=== PATIENT | male | born 1965 | race Caucasian/White ===

== ENCOUNTER 2016-09-01 15:28 | Emergency (ER) | payer MEDICARE, MEDICAID ==
[2016-09-01] MEDS ORDERED: Sodium Chloride 0.9% 10 ML Syringe FLUSH PRN ×2 (15:58)
[2016-09-01] MEDS ORDERED: Sodium Chloride 0.9% 1,000 ML IV ONE ×2 (16:01→18:19)
--- NOTE | 2016-09-01 16:18 | EDM.PDOC ---
ED HPI GENERAL MEDICAL PROBLEM - General Chief Complaint: General Stated Complaint: PAIN Time Seen by Provider: 09/01/16 15:41 Source of Information: Reports: Patient History Limitations: Reports: Other (Mentally challenged) - History of Present Illness INITIAL COMMENTS - FREE TEXT/NARRATIVE: Presents to the ER with vague symptoms. The patient is mentally challenged. He states that he has been "feeling draggy" he stated that he tried to eat but he was too weak. He also complains of some pains in his both forearms and pushing his shopping cart to the right. He reports no trouble driving. He states that he sets up his own meds but later he told me that the person that sets up his meds had not been around for a while. He also stated that he had a colonoscopy and saw Dr. Godinez on Wednesday but on further questioning it is doubtful that he had a colonoscopy. He said the lab work they did was all good at that time. He does have a history of diabetes and he states that he has been taking his medications Left Upper Abdominal Pain Score (Numeric/FACES): 8 - Related Data Allergies Allergy/AdvReac Type Severity Reaction Status Date / Time No Known Allergies Allergy Verified 09/01/16 15:43 Home Meds: Home Meds Divalproex Sodium [Depakote] 1,000 mg PO DAILY 05/11/15 [History] Glucosamine [Glucosamine Sulfate] 500 mg PO BID 05/11/15 [History] Insulin Glarg,Human.Rec.Analog [LantUS] 24 unit SUBCUT DAILY 05/18/15 [History] Insulin Lispro [Humalog] 40 unit SQ DAILY 05/18/15 [History] Lisinopril [Lisinopril] 1 tab PO DAILY 03/02/16 [History] metFORMIN HCl [Metformin HCl] 750 mg PO TID 03/02/16 [History] Past Medical History - Past Health History Medical/Surgical History: Denies Medical/Surgical History HEENT History: Reports: Impaired Vision Cardiovascular History: Reports: High Cholesterol, Hypertension Respiratory History: Reports: None Gastrointestinal History: Reports: None Genitourinary History: Reports: None Musculoskeletal History: Reports: Arthritis Neurological History: Reports: Seizure Psychiatric History: Reports: None Endocrine/Metabolic History: Reports: Diabetes, Type II Hematologic History: Reports: None Immunologic History: Reports: None Oncologic (Cancer) History: Reports: None Dermatologic History: Reports: None - Infectious Disease History Infectious Disease History: Reports: None - Past Surgical History Head Surgeries/Procedures: Reports: None HEENT Surgical History: Reports: Naso-Sinus Surgery, Retinal, Visual Social & Family History - Family History Family Medical History: Noncontributory - Tobacco Use Smoking Status *Q: Never Smoker Second Hand Smoke Exposure: No - Caffeine Use Caffeine Use: Reports: Soda - Alcohol Use Days Per Week of Alcohol Use: 0 - Recreational Drug Use Recreational Drug Use: No ED ROS GENERAL - Review of Systems Review Of Systems: ROS reveals no pertinent complaints other than HPI. Constitutional: Denies: Fever ED EXAM, GENERAL - Physical Exam Exam: See Below Exam Limited By: No Limitations General Appearance: Alert, No Apparent Distress Ears: Normal External Exam Nose: Normal Inspection Throat/Mouth: Normal Inspection Head: Atraumatic, Normocephalic Neck: Normal Inspection Respiratory/Chest: No Respiratory Distress, Lungs Clear, Normal Breath Sounds, No Accessory Muscle Use Cardiovascular: Normal Peripheral Pulses, Regular Rate, Rhythm, No Edema, No Murmur GI/Abdominal: Normal Bowel Sounds, Non-Tender, Other Back Exam: Normal Inspection, Full Range of Motion Extremities: Normal Inspection Neurological: Alert, Oriented Psychiatric: Normal Affect, Normal Mood Skin Exam: Warm, Dry, Intact, Normal Color, No Rash Lymphatic: No Adenopathy Course - Vital Signs Last Recorded V/S: Last Vital Signs Temp 36.7 C 09/01/16 15:39 Pulse 134 H 09/01/16 15:39 Resp 18 09/01/16 15:39 BP 152/86 H 09/01/16 15:39 Pulse Ox 94 L 09/01/16 15:39 - Orders/Labs/Meds Orders: Active Orders 24 hr Category Date Time Status EKG Documentation Completion [RC] STAT Care 09/01/16 15:58 Active Abdomen 2V AP Flat Upright [CR] Stat Exams 09/01/16 16:00 Ordered CBC WITH AUTO DIFF [HEME] Stat Lab 09/01/16 15:58 Ordered COMPREHENSIVE METABOLIC PN,CMP [CHEM] Stat Lab 09/01/16 15:58 Ordered TROPONIN I [CHEM] Stat Lab 09/01/16 15:58 Ordered Sodium Chloride 0.9% [Normal Saline] 1,000 ml Med 09/01/16 16:01 Active IV STAT Sodium Chloride 0.9% [Saline Flush] Med 09/01/16 15:58 Active 10 ml FLUSH ASDIRECTED PRN Sodium Chloride 0.9% [Saline Flush] Med 09/01/16 15:58 Active 10 ml FLUSH ASDIRECTED PRN Saline Lock Insert [OM.PC] Stat Oth 09/01/16 15:58 Ordered Medication Orders Sodium Chloride (Normal Saline) 1,000 mls @ 999 mls/hr IV STAT ONE Stop: 09/01/16 17:01 Sodium Chloride (Saline Flush) 10 ml FLUSH ASDIRECTED PRN PRN Reason: Keep Vein Open Sodium Chloride (Saline Flush) 10 ml FLUSH ASDIRECTED PRN PRN Reason: Keep Vein Open Meds: Medications Generic Name Dose Route Start Last Admin Trade Name Freq PRN Reason Stop Dose Admin Sodium Chloride 1,000 mls @ 999 mls/hr 09/01/16 16:01 Normal Saline IV 09/01/16 17:01 STAT ONE Sodium Chloride 10 ml 09/01/16 15:58 Saline Flush FLUSH ASDIRECTED PRN Keep Vein Open Sodium Chloride 10 ml 09/01/16 15:58 Saline Flush FLUSH ASDIRECTED PRN Keep Vein Open - Re-Assessments/Exams Free Text/Narrative Re-Assessment/Exam: 09/01/16 20:26 Patient was offered to stay in the hospital a number of times but he refused and states that he has things he has to do at home. I also talked to his mother about our findings and his complaints. She states that she cannot help him out as she has no vehicle but that he does go out to the [facility] clinic often. In fact he was out there today and will go back tomorrow to get his prescriptions filled. The patient also would not allow blood cultures or a chest x-ray. I was able to talk him into allowing his blood gases to be drawn Departure - Departure Time of Disposition: 20:17 Disposition: Home, Self-Care 01 Condition: good Clinical Impression: Diabetes mellitus Qualifiers: Diabetes mellitus type: type 2 Diabetes mellitus complication status: with hyperglycemia Leukocytosis Qualifiers: Leukocytosis type: unspecified Qualified Code(s): D72.829 - Elevated white blood cell count, unspecified Constipation Qualifiers: Constipation type: unspecified constipation type Qualified Code(s): K59.00 - Constipation, unspecified - Discharge Information Forms: ED Department Discharge Additional Instructions: 1. Take your antibiotic once a day for the next four days 2. Drink lots of fluids such as water and sports drinks like Gatorade 3. You must go to [facility] ([facility]) clinic in the morning and get your prescriptions filled. Have them set up your medications for you as well and check your blood sugar. See your primary provider Dr. Godinez as soon as possible. 4. Check your blood sugars and take your insulin as you have been trained. Eat your regular meals and snacks. 5. Return right away if you're feeling weak, shaky or feverish. 6. When you are near a toilet, drink one bottle of Mag Citrate for your constipation. - My Orders Last 24 Hours: My Active Orders 09/01/16 15:58 EKG Documentation Completion [RC] STAT CBC WITH AUTO DIFF [HEME] Stat COMPREHENSIVE METABOLIC PN,CMP [CHEM] Stat TROPONIN I [CHEM] Stat Sodium Chloride 0.9% [Saline Flush] 10 ml FLUSH ASDIRECTED PRN Sodium Chloride 0.9% [Saline Flush] 10 ml FLUSH ASDIRECTED PRN Saline Lock Insert [OM.PC] Stat 09/01/16 16:00 Abdomen 2V AP Flat Upright [CR] Stat 09/01/16 16:01 Sodium Chloride 0.9% [Normal Saline] 1,000 ml IV STAT - Assessment/Plan Last 24 Hours: My Active Orders 09/01/16 15:58 EKG Documentation Completion [RC] STAT CBC WITH AUTO DIFF [HEME] Stat COMPREHENSIVE METABOLIC PN,CMP [CHEM] Stat TROPONIN I [CHEM] Stat Sodium Chloride 0.9% [Saline Flush] 10 ml FLUSH ASDIRECTED PRN Sodium Chloride 0.9% [Saline Flush] 10 ml FLUSH ASDIRECTED PRN Saline Lock Insert [OM.PC] Stat 09/01/16 16:00 Abdomen 2V AP Flat Upright [CR] Stat 09/01/16 16:01 Sodium Chloride 0.9% [Normal Saline] 1,000 ml IV STAT
[2016-09-01] MEDS ORDERED: Insulin Regular, Human 100 Units/ML 10 ML Vial SUBCUT STA ×2 (19:03→20:27)
[2016-09-01] MEDS ORDERED: Piperacillin/Tazobactam 4.5 GM in Sodium Chloride 0.9% 100 ML IV ONE (19:21)
[2016-09-01] MEDS ORDERED: Levofloxacin 500 MG Tab PO ONE (19:21)
[2016-09-01] MEDS ORDERED: Insulin Regular, Human 100 Units/ML 10 ML Vial ONE (20:24)
[2016-09-01 21:12] VITALS: BP 131/92
[2016-09-02] MEDS ORDERED: Insulin Regular, Human 100 Units/ML 10 ML Vial SUBCUT SCH (07:30)
--- NOTE | 2016-09-02 10:14 | CR ---
EXAM DATE: 09/01/16 PATIENT'S AGE: 51 Patient: VALERIE OROPEZA Facility: [place], [place] Site . Site : 1965 Study: XRay Abdomen [id number] 5:27:12 PM Ordering Physician: Doctor Fields Final Report: Indication: Lower abdominal pain at the insulin injection site, left bowel movement 1 week ago Technique: Abdomen supine and upright views. Comparison: May 18, 2015 Findings: Bowel: Bowel pattern is normal. Large amount of stool within the colon. Soft tissues: No sign of free air. No sign of soft tissue mass. No suspicious calcifications. Bones: Unremarkable for age. Impression: Constipation. Dictated by Siri Jordan MD @ Sep 01 2016 5:43PM (Electronic Signature) Report Signed by Proxy. HAYLEE
[2016-09-02] MEDS ORDERED: Insulin Regular, Human 100 Units/ML 10 ML Vial SUBCUT ONE ×2 (18:21→20:21)
== END 2016-09-01 21:09 | disposition home or self-care (01) ==
LOC: MW.ED 15:28
DX: E11.65 Type 2 diabetes mellitus with hyperglycemia (principal); D72.829 Elevated white blood cell count, unspecified; K59.00 Constipation, unspecified; E78.00 Pure hypercholesterolemia, unspecified; I10 Essential (primary) hypertension; M19.90 Unspecified osteoarthritis, unspecified site; Z79.899 Other long term (current) drug therapy; Z79.4 Long term (current) use of insulin
CPT/HCPCS: 36600; 74020; 80053; 81001; 82803; 82962; 83605; 84484; 85025; 93005; 96361; 96365; 96372; 99285; A9270; J2543; J7030; J7040; 99283; J1815-GY

== ENCOUNTER 2017-04-04 12:18 | Emergency (ER) | payer MEDICARE, MEDICAID ==
--- NOTE | 2017-04-04 12:35 | EDM.PDOC ---
ED HPI GENERAL MEDICAL PROBLEM - General Chief Complaint: Respiratory Problem Stated Complaint: HEADACHE AND COUGHING Time Seen by Provider: 04/04/17 12:35 Source of Information: Reports: Patient - History of Present Illness INITIAL COMMENTS - FREE TEXT/NARRATIVE: HISTORY AND PHYSICAL: History of present illness: [51-year-old diabetic presents with sinus pain and pressure headache increasing over the last week as well as copious nasal discharge has been using over-the- counter symptomatic therapies without any benefit No fever nausea vomiting chills sweats he complains of persistent cough that is nonproductive no chest pain shortness breath dizziness or palpitation no bowel or urine symptoms ] Review of systems: As per history of present illness and below otherwise all systems reviewed and negative. Past medical history: As per history of present illness and as reviewed below otherwise noncontributory. Surgical history: As per history of present illness and as reviewed below otherwise noncontributory. Social history: No reported history of drug or alcohol abuse. Family history: As per history of present illness and as reviewed below otherwise noncontributory. Physical exam: HEENT: Atraumatic, normocephalic, pupils reactive, negative for conjunctival pallor or scleral icterus, mucous membranes moist, throat clear, neck supple, nontender, trachea midline. Sinus tenderness left greater than right supraorbital and maxillary sinus boggy nasal mucosa with copious nasal discharge on the left Lungs: Clear to auscultation, breath sounds equal bilaterally, chest nontender. Heart: S1S2, regular, negative for clicks, rubs, or JVD. Abdomen: Soft, nondistended, nontender. Negative for masses or hepatosplenomegaly. Negative for costovertebral tenderness. Pelvis: Stable nontender. Genitourinary: Deferred. Rectal: Deferred. Extremities: Atraumatic, negative for cords or calf pain. Neurovascular unremarkable. Neuro: Awake, alert, oriented. Cranial nerves II through XII unremarkable. Cerebellum unremarkable. Motor and sensory unremarkable throughout. Exam nonfocal. Diagnostics: []Chest 2 views Therapeutics: []Patient offered Rocephin declines Levaquin 500 mg by mouth daily #10 no refill Flonase [id number] symptomatic therapies discussed Impression: []Acute sinusitis Chronic history of baseline Definitive disposition and diagnosis as appropriate pending reevaluation and review of above. Headache Pain Score (Numeric/FACES): 5 - Related Data Allergies Allergy/AdvReac Type Severity Reaction Status Date / Time No Known Allergies Allergy Verified 09/01/16 15:43 Home Meds: Home Meds Divalproex Sodium [Depakote] 1,000 mg PO DAILY 05/11/15 [History] Glucosamine [Glucosamine Sulfate] 500 mg PO BID 05/11/15 [History] Insulin Glarg,Human.Rec.Analog [LantUS] 24 unit SUBCUT DAILY 05/18/15 [History] Insulin Lispro [Humalog] 40 unit SQ DAILY 05/18/15 [History] Lisinopril [Lisinopril] 1 tab PO DAILY 03/02/16 [History] metFORMIN HCl [Metformin HCl] 750 mg PO TID 03/02/16 [History] Past Medical History - Past Health History Medical/Surgical History: Denies Medical/Surgical History HEENT History: Reports: Impaired Vision Cardiovascular History: Reports: High Cholesterol, Hypertension Respiratory History: Reports: None Gastrointestinal History: Reports: None Genitourinary History: Reports: None Musculoskeletal History: Reports: Arthritis Neurological History: Reports: Seizure Psychiatric History: Reports: None Endocrine/Metabolic History: Reports: Diabetes, Type II Hematologic History: Reports: None Immunologic History: Reports: None Oncologic (Cancer) History: Reports: None Dermatologic History: Reports: None - Infectious Disease History Infectious Disease History: Reports: None - Past Surgical History Head Surgeries/Procedures: Reports: None HEENT Surgical History: Reports: Naso-Sinus Surgery, Retinal, Visual Social & Family History - Family History Family Medical History: Noncontributory - Tobacco Use Smoking Status *Q: Never Smoker Second Hand Smoke Exposure: No - Caffeine Use Caffeine Use: Reports: Soda - Alcohol Use Days Per Week of Alcohol Use: 0 - Recreational Drug Use Recreational Drug Use: No ED ROS GENERAL - Review of Systems Review Of Systems: ROS reveals no pertinent complaints other than HPI. ED EXAM, GENERAL - Physical Exam Exam: See Below Course - Vital Signs Last Recorded V/S: Last Vital Signs Temp 97.2 F 04/04/17 12:35 Pulse 94 04/04/17 12:35 Resp 18 04/04/17 12:35 BP 151/86 H 04/04/17 12:35 Pulse Ox 96 04/04/17 12:35 - Orders/Labs/Meds Orders: Active Orders 24 hr Category Date Time Status Chest 2V [CR] Stat Exams 04/04/17 12:38 Taken Departure - Departure Time of Disposition: 13:24 Disposition: Home, Self-Care 01 Condition: Good Clinical Impression: Acute sinusitis - Discharge Information Referrals: Ioana Godinez MD [Primary Care Provider] - Forms: ED Department Discharge Additional Instructions: Medication as prescribed [id number] symptomatic therapies may benefit Return if symptoms persist or worsen Follow-up with primary care in 2 weeks sooner as needed The following information is given to patients seen in the emergency department who are being discharged to home. This information is to outline your options for follow-up care. We provide all patients seen in our emergency department with a follow-up referral. The need for follow-up, as well as the timing and circumstances, are variable depending upon the specifics of your emergency department visit. If you don't have a primary care physician on staff, we will provide you with a referral. We always advise you to contact your personal physician following an emergency department visit to inform them of the circumstance of the visit and for follow-up with them and/or the need for any referrals to a consulting specialist. The emergency department will also refer you to a specialist when appropriate. This referral assures that you have the opportunity for follow-up care with a specialist. All of these measure are taken in an effort to provide you with optimal care, which includes your follow-up. Under all circumstances we always encourage you to contact your private physician who remains a resource for coordinating your care. When calling for follow-up care, please make the office aware that this follow-up is from your recent emergency room visit. If for any reason you are refused follow-up, please contact the [facility] emergency department at and asked to speak to the emergency department charge nurse. - My Orders Last 24 Hours: My Active Orders 04/04/17 12:38 Chest 2V [CR] Stat - Assessment/Plan Last 24 Hours: My Active Orders 04/04/17 12:38 Chest 2V [CR] Stat
[2017-04-04 12:39] VITALS: BP 151/86
--- NOTE | 2017-04-05 14:58 | CR ---
EXAM DATE: 04/04/17 PATIENT'S AGE: 51 Patient: VALERIE OROPEZA Facility: [place], [place] Site . Site : 1965 Study: XRay Chest [id number] 1:20:47 PM Ordering Physician: Sherif Laguna Final Report: INDICATION: Cough, Shortness of Breath, Body Aches 2 VIEW CHEST FINDINGS: Heart size and vascular pattern appear normal. Lungs clear. Pleural angles are sharp. No visualized rib fractures or pneumothorax. CONCLUSION: Negative chest. Dictated by: Lenin Plascencia MD @ 04/04/2017 13:42:33 (Electronic Signature) Report Signed by Proxy. [facility]
== END 2017-04-04 13:51 | disposition home or self-care (01) ==
LOC: MW.ED 12:18
DX: J01.90 Acute sinusitis, unspecified (principal); E78.00 Pure hypercholesterolemia, unspecified; I10 Essential (primary) hypertension; E11.9 Type 2 diabetes mellitus without complications; Z79.4 Long term (current) use of insulin; Z79.899 Other long term (current) drug therapy
CPT/HCPCS: 71020; 71020-26; 87804; 99283

== ENCOUNTER 2018-06-23 15:04 | Emergency (ER) | payer MEDICARE, MEDICAID ==
--- NOTE | 2018-06-23 15:35 | EDM.PDOC ---
ED HPI GENERAL MEDICAL PROBLEM - General Chief Complaint: Lower Extremity Injury/Pain Stated Complaint: RIGHT KNEE PAIN Time Seen by Provider: 06/23/18 15:30 Source of Information: Reports: Patient History Limitations: Reports: No Limitations - History of Present Illness INITIAL COMMENTS - FREE TEXT/NARRATIVE: HISTORY AND PHYSICAL: History of present illness: Patient is a 53-year-old male here with complaint of right knee injury. He states he slipped on this ice this morning landing on his right side and right knee. He denies head injury or LOC. He reports pain in his right knee and right low back. He is otherwise in his usual state of health without any other complaints at this time. Review of systems: As per history of present illness and below otherwise all systems reviewed and negative. Past medical history: As per history of present illness and as reviewed below otherwise noncontributory. Surgical history: As per history of present illness and as reviewed below otherwise noncontributory. Social history: No reported history of drug or alcohol abuse. Family history: As per history of present illness and as reviewed below otherwise noncontributory. Physical exam: General: Patient sitting comfortably in no acute distress and nontoxic appearing HEENT: Atraumatic, normocephalic, pupils reactive, negative for conjunctival pallor or scleral icterus, mucous membranes moist, throat clear, neck supple, nontender, trachea midline. No meningeal signs. Lungs: Clear to auscultation, breath sounds equal bilaterally, chest nontender. Heart: S1S2, regular, negative for clicks, rubs, or overt murmur. Abdomen: Soft, nondistended, nontender. Negative for masses or hepatosplenomegaly. Negative for costovertebral tenderness. No rigidity, rebound , guarding. Pelvis: Stable nontender. Genitourinary: Deferred. Rectal: Deferred. Extremities: Small abrasion to the right knee. No obvious swelling or deformity. Pain to palpation of the patella. He is able to flex and extend without discomfort. Negative varus and valgus stress. Negative anterior and posterior drawer. negative for cords or calf pain. Neurovascular unremarkable. Spine: No vertebral tenderness or step offs. Pain to palpation of right lumbar paraspinals. Neuro: Awake, alert, oriented. Cranial nerves II through XII unremarkable. Cerebellum unremarkable. Motor and sensory unremarkable throughout. Exam nonfocal. Notes: Diagnostics: x-ray right knee Therapeutics: Toradol 10mg PO Prescriptions: Diclofenac 75mg Impression: Right knee pain, right lumbar back pain Plan: 1. Take medication as instructed. 2. Follow up with primary care provider 3. Return to ED as needed as discussed Definitive disposition and diagnosis as appropriate pending reevaluation and review of above. Right Knee Pain Score (Numeric/FACES): 10 - Related Data Allergies Allergy/AdvReac Type Severity Reaction Status Date / Time No Known Allergies Allergy Verified 06/23/18 15:18 Home Meds: Home Meds Divalproex Sodium [Depakote] 1,000 mg PO DAILY 05/11/15 [History] Glucosamine [Glucosamine Sulfate] 500 mg PO BID 05/11/15 [History] Insulin Glarg,Human.Rec.Analog [LantUS] 24 unit SUBCUT DAILY 05/18/15 [History] Insulin Lispro [Humalog] 40 unit SQ DAILY 05/18/15 [History] Lisinopril 1 tab PO DAILY 03/02/16 [History] metFORMIN HCl [Metformin HCl] 750 mg PO TID 03/02/16 [History] Gabapentin 250 mg PO BID 03/15/18 [History] Diclofenac Sodium [Voltaren] 75 mg PO BIDMEALS #30 tab.cr 06/23/18 [Rx] Past Medical History - Past Health History Medical/Surgical History: Denies Medical/Surgical History HEENT History: Reports: Impaired Vision Cardiovascular History: Reports: High Cholesterol, Hypertension Respiratory History: Reports: None Gastrointestinal History: Reports: None Genitourinary History: Reports: None Musculoskeletal History: Reports: Arthritis Neurological History: Reports: Seizure Psychiatric History: Reports: None Endocrine/Metabolic History: Reports: Diabetes, Type II Hematologic History: Reports: None Immunologic History: Reports: None Oncologic (Cancer) History: Reports: None Dermatologic History: Reports: None - Infectious Disease History Infectious Disease History: Reports: None - Past Surgical History Head Surgeries/Procedures: Reports: None HEENT Surgical History: Reports: Naso-Sinus Surgery, Retinal, Visual Social & Family History - Family History Family Medical History: Noncontributory - Tobacco Use Smoking Status *Q: Never Smoker - Caffeine Use Caffeine Use: Reports: Soda - Recreational Drug Use Recreational Drug Use: No Review of Systems - Review of Systems Review Of Systems: ROS reveals no pertinent complaints other than HPI. ED EXAM, GENERAL - Physical Exam Exam: See Below (see dictation) Course - Vital Signs Last Recorded V/S: Last Vital Signs Temp 96.0 F 06/23/18 15:14 Pulse 88 06/23/18 15:14 Resp 18 06/23/18 15:14 BP 130/86 06/23/18 15:14 Pulse Ox 96 06/23/18 15:14 - Orders/Labs/Meds Meds: Medications Discontinued Medications Generic Name Dose Route Start Last Admin Trade Name Casey PRN Reason Stop Dose Admin Ketorolac Tromethamine 10 mg 06/23/18 15:54 06/23/18 16:02 Toradol PO 06/23/18 15:55 10 mg ONETIME ONE Administration Departure - Departure Time of Disposition: 16:57 Disposition: Home, Self-Care 01 Condition: Good Clinical Impression: Fall, Right knee pain, Lumbar back pain - Discharge Information Prescriptions: Diclofenac Sodium [Voltaren] 75 mg PO BIDMEALS #30 tab.cr Instructions: Back Pain, Adult, [id number], Knee Pain, Adult, [id number] Referrals: Ioana Godinez MD [Primary Care Provider] - Forms: ED Department Discharge Additional Instructions: The following information is given to patients seen in the emergency department who are being discharged to home. This information is to outline your options for follow-up care. We provide all patients seen in our emergency department with a follow-up referral. The need for follow-up, as well as the timing and circumstances, are variable depending upon the specifics of your emergency department visit. If you don't have a primary care physician on staff, we will provide you with a referral. We always advise you to contact your personal physician following an emergency department visit to inform them of the circumstance of the visit and for follow-up with them and/or the need for any referrals to a consulting specialist. The emergency department will also refer you to a specialist when appropriate. This referral assures that you have the opportunity for follow-up care with a specialist. All of these measure are taken in an effort to provide you with optimal care, which includes your follow-up. Under all circumstances we always encourage you to contact your private physician who remains a resource for coordinating your care. When calling for follow-up care, please make the office aware that this follow-up is from your recent emergency room visit. If for any reason you are refused follow-up, please contact the [facility] Emergency Department at and asked to speak to the emergency department charge nurse. [facility] [address] [place] [id number] [address] [address] 1. Ice, elevate, and take medication as instructed 2. Follow up with primary care provider 3. Return to ED as needed as discussed
[2018-06-23] MEDS ORDERED: Ketorolac 10 MG Tab PO ONE (15:54)
--- NOTE | 2018-06-23 16:58 | CR ---
Indication: Fall. Pain Technique: Four views of the right knee Comparison: 03/20/2010 Findings: Bones: An apparently chronic deformity of the proximal fibula. Otherwise no acute displaced fracture is seen. No dislocation. Joint spaces: Osteoarthritic changes with pronounced narrowing of the lateral compartment and osteophyte formation in the lateral and patellofemoral compartments. A small to moderate suprapatellar effusion. Soft tissues: Unremarkable. Impression: An apparently chronic deformity of the proximal right fibula. If a superimposed acute injury is suspected, correlate with additional imaging evaluation. Degenerative changes, most pronounced in the lateral compartment. A small to moderate joint effusion. Dictated by Bhanu Peña MD @ 06/23/2018 4:56:47 PM Dictated by: Bhanu Peña MD @ 06/23/2018 16:56:50 (Electronically Signed)
[2018-06-23 17:24] VITALS: BP 121/71
== END 2018-06-23 17:14 | disposition home or self-care (01) ==
LOC: MW.ED 15:04
DX: M25.561 Pain in right knee (principal); M54.5 Low back pain; I10 Essential (primary) hypertension; E11.9 Type 2 diabetes mellitus without complications; E78.00 Pure hypercholesterolemia, unspecified; Z79.899 Other long term (current) drug therapy; Z79.4 Long term (current) use of insulin; W19.XXXA Unspecified fall, initial encounter
CPT/HCPCS: 73564; 99283; A9270; 99282

== ENCOUNTER 2018-09-24 09:46 | Emergency (ER) | payer MEDICARE, MEDICAID ==
[2018-09-24] MEDS ORDERED: Sodium Chloride 0.9% 1,000 ML IV ONE (10:07)
--- NOTE | 2018-09-24 10:31 | EDM.PDOC ---
ED HPI GENERAL MEDICAL PROBLEM - General Chief Complaint: General Stated Complaint: LIGHT-HEADED, DIZZY, HEADACHE Time Seen by Provider: 09/24/18 10:06 Source of Information: Reports: Patient History Limitations: Reports: No Limitations - History of Present Illness INITIAL COMMENTS - FREE TEXT/NARRATIVE: HISTORY AND PHYSICAL: History of present illness: Patient is a 53-year-old male with a history of type 2 diabetes primarily on insulin who presents to the ED today for concern of dizziness, lightheaded, headache, and diaphoresis. Patient states he started having symptoms about 2 hours ago when he was doing laundry at home. Patient was at this mother and she had told him to come to the ED. Patient states his worse symptoms is that he feels super sweaty has a headache and is dizzy. Patient states he does not have a history of headaches so a headache today is unusual for him. Patient denies any recent illness and states he has not been sick. Patient states he had checked his sugar this morning and it was around 115 and he had given himself his long-acting insulin dose and had breakfast with a sliding scale. Patient states he also feels nauseous and that he may vomit but he has not. Patient denies any other symptoms or any other health history at this time. Patient denies chest pain, shortness of breath, or cough. Denies neck stiff ness , change in vision, syncope, or near syncope. Denies vomiting, abdominal pain, diarrhea, constipation, or dysuria. Has not noted any blood in urine or stool. Patient has been eating and drinking appropriately. Patient has a history of type 2 diabetes Review of systems: As per history of present illness and below otherwise all systems reviewed and negative. Past medical history: As per history of present illness and as reviewed below otherwise noncontributory. Surgical history: As per history of present illness and as reviewed below otherwise noncontributory. Social history: See social history for further information Family history: As per history of present illness and as reviewed below otherwise noncontributory. Physical exam: General: Patient is alert, oriented, and in no acute distress. Patient sitting comfortably on exam table, patient is sweating on exam, leaning over and holding emesis bag. HEENT: Atraumatic, normocephalic, pupils equal and reactive bilaterally, negative for conjunctival pallor or scleral icterus, mucous membranes dry, TMs normal bilaterally (right TM consistent with surgical history), throat clear, neck supple, nontender, trachea midline. No drooling or trismus noted. No meningeal signs. No hot potato voice noted. Lungs: Clear to auscultation, breath sounds equal bilaterally, chest nontender. Heart: S1S2, regular rate and rhythm without overt murmur Abdomen: Obese, Soft, nondistended, nontender. Negative for masses or hepatosplenomegaly. Negative for costovertebral tenderness. Pelvis: Stable nontender. Genitourinary: Deferred. Rectal: Deferred. Skin: Intact, warm, dry. No lesions or rashes noted. Extremities: Atraumatic, negative for cords or calf pain. Neurovascular unremarkable. Neuro: Awake, alert, oriented. Cranial nerves II through XII unremarkable. Cerebellum unremarkable. Motor and sensory unremarkable throughout. Exam nonfocal. Notes: Patient expresses resolution of symptoms with therapeutics today and has never had chest pain or shortness of breath. Offered admission for observation but patient declines. Discussed the importance for follow-up with primary care provider. Voices understanding and is agreeable to plan of care. Denies any further questions or concerns at this time. Diagnostics: CBC, CMP, influenza, lipase, strep and a troponin, UA, chest x-ray, orthostatic vitals, cardiac exercise physiologist, bedside glucose, EKG, ABG, Blood Ketones (Patient declines Head CT) Therapeutics: Saline Prescription: None Impression: Headache, unspecified Hyperhidrosis, unspecified Dehydration Type 2 DM with hyperglycemia, without complications Plan: 1. Alternate ibuprofen or Tylenol as directed for pain and discomfort. 2. Follow-up with your primary care provider as discussed. Return to the ED as needed and as discussed. Definitive disposition and diagnosis as appropriate pending reevaluation and review of above. - Related Data Allergies Allergy/AdvReac Type Severity Reaction Status Date / Time No Known Allergies Allergy Verified 06/23/18 15:18 Home Meds: Home Meds Divalproex Sodium [Depakote] 1,000 mg PO DAILY 05/11/15 [History] Glucosamine [Glucosamine Sulfate] 500 mg PO BID 05/11/15 [History] Insulin Glarg,Human.Rec.Analog [LantUS] 24 unit SUBCUT DAILY 05/18/15 [History] Insulin Lispro [Humalog] 40 unit SQ DAILY 05/18/15 [History] Lisinopril 1 tab PO DAILY 03/02/16 [History] metFORMIN HCl [Metformin HCl] 750 mg PO TID 03/02/16 [History] Gabapentin 250 mg PO BID 03/15/18 [History] Diclofenac Sodium [Voltaren] 75 mg PO BIDMEALS #30 tab.cr 06/23/18 [Rx] Pregabalin [Lyrica] 25 mg PO BID 09/24/18 [History] Past Medical History - Past Health History Medical/Surgical History: Denies Medical/Surgical History HEENT History: Reports: Impaired Vision Cardiovascular History: Reports: High Cholesterol, Hypertension Respiratory History: Reports: None Gastrointestinal History: Reports: None Genitourinary History: Reports: None Musculoskeletal History: Reports: Arthritis Neurological History: Reports: Seizure Psychiatric History: Reports: None Endocrine/Metabolic History: Reports: Diabetes, Type II Hematologic History: Reports: None Immunologic History: Reports: None Oncologic (Cancer) History: Reports: None Dermatologic History: Reports: None - Infectious Disease History Infectious Disease History: Reports: None - Past Surgical History Head Surgeries/Procedures: Reports: None HEENT Surgical History: Reports: Naso-Sinus Surgery, Retinal, Visual Social & Family History - Family History Family Medical History: Noncontributory - Tobacco Use Smoking Status *Q: Never Smoker - Caffeine Use Caffeine Use: Reports: Coffee, Soda - Recreational Drug Use Recreational Drug Use: No ED ROS GENERAL - Review of Systems Review Of Systems: ROS reveals no pertinent complaints other than HPI. ED EXAM, GENERAL - Physical Exam Exam: See Below (See dictation) Course - Vital Signs Last Recorded V/S: Last Vital Signs Temp 34.8 C L 09/24/18 10:02 Pulse 90 09/24/18 10:02 Resp 18 09/24/18 10:02 BP 147/90 H 09/24/18 10:02 Pulse Ox 97 09/24/18 10:02 - Orders/Labs/Meds Orders: Active Orders 24 hr Category Date Time Status Cardiac Monitoring [RC] . DIRECTED Care 09/24/18 10:07 Active EKG Documentation Completion [RC] STAT Care 09/24/18 10:07 Active Glucose [Blood Glucose Check, Bedside] [RC] ONETIME Care 09/24/18 10:09 Active Orthostatic Vital Signs [RC] ASDIRECTED Care 09/24/18 10:08 Active CULTURE STREP A CONFIRMATION [RM] Stat Lab 09/24/18 11:40 Results STREP SCRN A RAPID W CULT CONF [RM] Stat Lab 09/24/18 11:40 Results UA RFX MELVA AND CULT IF INDIC [URIN] Stat Lab 09/24/18 10:07 Ordered Labs: Laboratory Tests 09/24/18 09/24/18 09/24/18 Range/Units 10:30 10:30 10:30 WBC 5.58 (4.0-11.0) K/uL RBC 5.50 (4.50-5.90) M/uL Hgb 16.8 (13.0-17.0) g/dL Hct 50.5 H (38.0-50.0) % MCV 91.8 (80.0-98.0) fL MCH 30.5 (27.0-32.0) pg MCHC 33.3 (31.0-37.0) g/dL RDW Std Deviation 46.7 (28.0-62.0) fl RDW Coeff of Lety 14 (11.0-15.0) % Plt Count 168 (150-400) K/uL MPV 10.90 (7.40-12.00) fL Neut % (Auto) 64.1 (48.0-80.0) % Lymph % (Auto) 22.2 (16.0-40.0) % Rice % (Auto) 10.0 (0.0-15.0) % Eos % (Auto) 3.2 (0.0-7.0) % Baso % (Auto) 0.5 (0.0-1.5) % Neut # (Auto) 3.6 (1.4-5.7) K/uL Lymph # (Auto) 1.2 (0.6-2.4) K/uL Rice # (Auto) 0.6 (0.0-0.8) K/uL Eos # (Auto) 0.2 (0.0-0.7) K/uL Baso # (Auto) 0.0 (0.0-0.1) K/uL Nucleated RBC % 0.0 /100WBC Nucleated RBCs # 0 K/uL ABG pH (7.35-7.45) ABG pCO2 (35-45) mmHG ABG pO2 (75-100) mmHG ABG HCO3 (22-26) mEq/L ABG Total CO2 ABG Base Excess (-2.0-2.0) Sodium 139 (136-148) mmol/L Potassium 4.8 (3.5-5.1) mmol/L Chloride 103 (98-107) mmol/L Carbon Dioxide 28.6 (21.0-32.0) mmol/L BUN 22 H (7.0-18.0) mg/dL Creatinine 1.4 H (0.8-1.3) mg/dL Est Cr Clr Drug Dosing 65.74 mL/min Estimated GFR (MDRD) 53.2 ml/min Glucose 227 H (74-106) mg/dL POC Glucose (60-110) mg/dL Calcium 9.5 (8.5-10.1) mg/dL Total Bilirubin 0.4 (0.2-1.0) mg/dL AST 31 (15-37) IU/L ALT 49 (14-63) IU/L Alkaline Phosphatase 105 (46-116) U/L Troponin I < 0.050 (0.000-0.056) ng/mL Total Protein 8.5 H (6.4-8.2) g/dL Albumin 3.9 (3.4-5.0) g/dL Globulin 4.6 H (2.6-4.0) g/dL Albumin/Globulin Ratio 0.9 (0.9-1.6) Lipase 140 (73-393) U/L Ketones NEGATIVE (NEG) 09/24/18 09/24/18 Range/Units 10:31 11:30 WBC (4.0-11.0) K/uL RBC (4.50-5.90) M/uL Hgb (13.0-17.0) g/dL Hct (38.0-50.0) % MCV (80.0-98.0) fL MCH (27.0-32.0) pg MCHC (31.0-37.0) g/dL RDW Std Deviation (28.0-62.0) fl RDW Coeff of Lety (11.0-15.0) % Plt Count (150-400) K/uL MPV (7.40-12.00) fL Neut % (Auto) (48.0-80.0) % Lymph % (Auto) (16.0-40.0) % Rice % (Auto) (0.0-15.0) % Eos % (Auto) (0.0-7.0) % Baso % (Auto) (0.0-1.5) % Neut # (Auto) (1.4-5.7) K/uL Lymph # (Auto) (0.6-2.4) K/uL Rice # (Auto) (0.0-0.8) K/uL Eos # (Auto) (0.0-0.7) K/uL Baso # (Auto) (0.0-0.1) K/uL Nucleated RBC % /100WBC Nucleated RBCs # K/uL ABG pH 7.418 (7.35-7.45) ABG pCO2 37 (35-45) mmHG ABG pO2 75 (75-100) mmHG ABG HCO3 24 (22-26) mEq/L ABG Total CO2 20.5 ABG Base Excess -0.6 (-2.0-2.0) Sodium (136-148) mmol/L Potassium (3.5-5.1) mmol/L Chloride (98-107) mmol/L Carbon Dioxide (21.0-32.0) mmol/L BUN (7.0-18.0) mg/dL Creatinine (0.8-1.3) mg/dL Est Cr Clr Drug Dosing mL/min Estimated GFR (MDRD) ml/min Glucose (74-106) mg/dL POC Glucose 194 H (60-110) mg/dL Calcium (8.5-10.1) mg/dL Total Bilirubin (0.2-1.0) mg/dL AST (15-37) IU/L ALT (14-63) IU/L Alkaline Phosphatase (46-116) U/L Troponin I (0.000-0.056) ng/mL Total Protein (6.4-8.2) g/dL Albumin (3.4-5.0) g/dL Globulin (2.6-4.0) g/dL Albumin/Globulin Ratio (0.9-1.6) Lipase (73-393) U/L Ketones (NEG) Meds: Medications Discontinued Medications Generic Name Dose Route Start Last Admin Trade Name Freq PRN Reason Stop Dose Admin Sodium Chloride 1,000 mls @ 999 mls/hr 09/24/18 10:07 09/24/18 10:36 Normal Saline IV 09/24/18 11:07 999 mls/hr BOLUS ONE Administration Departure - Departure Time of Disposition: 12:12 Disposition: Home, Self-Care 01 Clinical Impression: Hyperhidrosis, Dehydration Headache Qualifiers: Headache type: unspecified Headache chronicity pattern: acute headache Intractability: not intractable Qualified Code(s): R51 - Headache Type 2 diabetes mellitus Qualifiers: 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 This information is to outline your options for follow-up care. We provide all patients seen in our emergency department with a follow-up referral. The need for follow-up, as well as the timing and circumstances, are variable depending upon the specifics of your emergency department visit. If you don't have a primary care physician on staff, we will provide you with a referral. We always advise you to contact your personal physician following an emergency department visit to inform them of the circumstance of the visit and for follow-up with them and/or the need for any referrals to a consulting specialist. The emergency department will also refer you to a specialist when appropriate. This referral assures that you have the opportunity for follow-up care with a specialist. All of these measure are taken in an effort to provide you with optimal care, which includes your follow-up. Under all circumstances we always encourage you to contact your private physician who remains a resource for coordinating your care. When calling for follow-up care, please make the office aware that this follow-up is from your recent emergency room visit. If for any reason you are refused follow-up, please contact the [facility] Emergency Department at and asked to speak to the emergency department charge nurse. [facility] [address] [place] [id number] [facility] [address] [place] [id number] 1. Alternate ibuprofen or Tylenol as directed for pain and discomfort. 2. Follow-up with your primary care provider as discussed. Return to the ED as needed and as discussed. - My Orders Last 24 Hours: My Active Orders 09/24/18 10:07 Cardiac Monitoring [RC] . DIRECTED EKG Documentation Completion [RC] STAT UA RFX MELVA AND CULT IF INDIC [URIN] Stat 09/24/18 10:08 Orthostatic Vital Signs [RC] ASDIRECTED 09/24/18 10:09 Glucose [Blood Glucose Check, Bedside] [RC] ONETIME 09/24/18 11:40 CULTURE STREP A CONFIRMATION [RM] Stat STREP SCRN A RAPID W CULT CONF [RM] Stat - Assessment/Plan Last 24 Hours: My Active Orders 09/24/18 10:07 Cardiac Monitoring [RC] . DIRECTED EKG Documentation Completion [RC] STAT UA RFX MELVA AND CULT IF INDIC [URIN] Stat 09/24/18 10:08 Orthostatic Vital Signs [RC] ASDIRECTED 09/24/18 10:09 Glucose [Blood Glucose Check, Bedside] [RC] ONETIME 09/24/18 11:40 CULTURE STREP A CONFIRMATION [RM] Stat STREP SCRN A RAPID W CULT CONF [RM] Stat
--- NOTE | 2018-09-24 10:38 | CR ---
INDICATION: Dizzy. Lightheaded. TECHNIQUE: Portable 1 view chest. FINDINGS: The heart and mediastinum are normal in size. Pulmonary vessels are normal. Lungs are clear. No pleural fluid. No acute bony abnormality. IMPRESSION: No acute chest disease. Dictated by Wendy Meza MD @ Sep 24 2018 10:38AM Signed by Dr. Wendy Meza @ Sep 24 2018 10:38AM
[2018-09-24 11:29] LABS: CHLORIDE,CL 103 mmol/L (98-107); SODIUM,NA 139 mmol/L (136-148)
[2018-09-24 12:26] VITALS: BP 136/90
== END 2018-09-24 12:25 | disposition home or self-care (01) ==
LOC: MW.ED 09:46
DX: E86.0 Dehydration (principal); R51 Headache; R61 Generalized hyperhidrosis; E11.65 Type 2 diabetes mellitus with hyperglycemia; I10 Essential (primary) hypertension; M19.90 Unspecified osteoarthritis, unspecified site; Z79.4 Long term (current) use of insulin; Z79.899 Other long term (current) drug therapy
CPT/HCPCS: 36600; 71045; 80053; 81001; 82009; 82803; 82962; 83690; 84484; 85025; 87081; 87804; 87880; 93005; 96360; 99284; J7040

== ENCOUNTER 2018-11-20 16:12 | Emergency (ER) | payer OTHER, MEDICARE, MEDICAID ==
[2018-11-20] MEDS ORDERED: Bacitracin Oint 1 GM U/D Packet TOP ONE (16:28)
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
[2018-11-20 17:22] VITALS: BP 122/75; PULSE 84
--- NOTE | 2018-11-20 17:44 | CR ---
INDICATION: Chest pain and shortness of breath TECHNIQUE: Chest 2 views COMPARISON: September 24, 2018 FINDINGS: Cardiovascular and mediastinum: Heart size and vasculature are normal in caliber and appearance. Lungs and pleural spaces: Lungs are clear. No sign of infiltrate or mass. No sign of pleural effusion. No pneumothorax. Bones and soft tissues: No significant findings. IMPRESSION: No acute findings and no significant changes from the prior exam. Dictated by Driss Granados MD @ Nov 20 2018 5:41PM Signed by Dr. Driss Granados @ Nov 20 2018 5:42PM
== END 2018-11-20 17:22 | disposition home or self-care (01) ==
LOC: MW.ED 16:12
DX: S20.312A Abrasion of left front wall of thorax, initial encounter (principal); I10 Essential (primary) hypertension; E11.9 Type 2 diabetes mellitus without complications; M19.90 Unspecified osteoarthritis, unspecified site; E78.00 Pure hypercholesterolemia, unspecified; Z79.899 Other long term (current) drug therapy; Z79.4 Long term (current) use of insulin; W22.8XXA Striking against or struck by other objects, initial encounter
CPT/HCPCS: 71046; 71046-26; 99283; 99283-25

== ENCOUNTER 2019-01-01 04:16 | Emergency (ER) | payer MEDICARE, MEDICAID ==
[2019-01-01] MEDS ORDERED: Alum Hydrox/Mag Hydrox/Simeth 15 ML, Metoclopramide 5 MG, Lidocaine 2% 5 ML PO ONE ×3 (04:41)
--- NOTE | 2019-01-01 04:46 | EDM.PDOC ---
ED HPI GENERAL MEDICAL PROBLEM - General Chief Complaint: General Stated Complaint: SINUS ISSUES, EARS HURT, ABDOMINAL PAIN Time Seen by Provider: 01/01/19 04:35 - History of Present Illness INITIAL COMMENTS - FREE TEXT/NARRATIVE: HISTORY AND PHYSICAL: History of present illness: The patient is a 53-year-old male who follows at [facility] and presents to the ED this morning saying that he woke up about an hour ago and he had a runny nose and sinus drainage without cough or fever and then he felt like he had an upset stomach and he tried to take some Pepto-Bismol and it did not work quickly so he came here for evaluation. He says he feels a little lightheaded but he has not passed out or blacked out and he has no head neck or back pain no chest pain or shortness of breath. He has not had a bowel movement in a couple of days and he does feel little bit bloated. He doesn't feel nauseated and he has no sore throat or ear pain but he requests that we check his ears. He is very vague on his presenting complaints and I reviewed his prior ER visits. When asked about his abdominal discomfort he says he just feels bloated and that does not necessarily one specific area of discomfort. He is not sure if he ate something last night that may have bothered him but he said that all day yesterday and yesterday evening before going to bed he felt perfectly fine. Review of systems: As per history of present illness and below otherwise all systems reviewed and negative. Past medical history: As per history of present illness and as reviewed below otherwise noncontributory. Surgical history: As per history of present illness and as reviewed below otherwise noncontributory. Social history: No reported history of drug or alcohol abuse. Family history: As per history of present illness and as reviewed below otherwise noncontributory. Physical exam: General: Well-developed well-nourished overweight man who is nontoxic and vital signs are noted by me. The patient is not breathless nor does he have a nasal quality to voice HEENT: Atraumatic, normocephalic, pupils reactive, negative for conjunctival pallor or scleral icterus, mucous membranes moist, throat clear, neck supple, nontender, trachea midline. There is no cervical adenopathy or nuchal rigidity and TMs are slightly dull bilaterally with cerumen in external canals Lungs: Clear to auscultation, breath sounds equal bilaterally, chest nontender. Heart: S1S2, regular rate and rhythm no overt murmurs Abdomen: Soft, nondistended, nontender. Bowel sounds are hypoactive and there is some tympany in the upper abdomen and percussion without rebound or guarding. Negative for masses or hepatosplenomegaly. Negative for costovertebral tenderness. Pelvis: Stable nontender. Genitourinary: Deferred. Rectal: Deferred. Extremities: Atraumatic, negative for cords or calf pain. Neurovascular unremarkable. Neuro: Awake, alert, oriented. Cranial nerves II through XII unremarkable. Cerebellum unremarkable. Motor and sensory unremarkable throughout. Exam nonfocal. Diagnostics: Abdominal x-rays--these note that the patient refused a supine view and would only allow one upright view to be taken even though it is somewhat incomplete. Therapeutics: GI cocktail Impression: Encounter for medical screening exam, nasal drainage and nonspecific abdominal discomfort stable--constipation and bowel colic Definitive disposition and diagnosis as appropriate pending reevaluation and review of above. - Related Data Allergies Allergy/AdvReac Type Severity Reaction Status Date / Time No Known Allergies Allergy Verified 01/01/19 04:23 Home Meds: Home Meds Divalproex Sodium [Depakote] 1,000 mg PO DAILY 05/11/15 [History] Insulin Glarg,Human.Rec.Analog [LantUS] 24 unit SUBCUT DAILY 05/18/15 [History] Insulin Lispro [Humalog] 40 unit SQ DAILY 05/18/15 [History] Lisinopril 1 tab PO DAILY 03/02/16 [History] metFORMIN HCl [Metformin HCl] 750 mg PO BID 03/02/16 [History] Pregabalin [Lyrica] 100 mg PO DAILY 09/24/18 [History] Aspirin [Ecotrin EC] 81 mg PO DAILY 01/01/19 [History] Linagliptin [Tradjenta] 5 mg PO DAILY 01/01/19 [History] [place]-3/DHA/Epa/Fish Oil [Fish Oil 1,000 mg Softgel] 1 each PO DAILY 01/01/19 [ History] Simvastatin [Zocor] 40 mg PO DAILY 01/01/19 [History] Past Medical History - Past Health History Medical/Surgical History: Denies Medical/Surgical History HEENT History: Reports: Impaired Vision Cardiovascular History: Reports: High Cholesterol, Hypertension Respiratory History: Reports: None Gastrointestinal History: Reports: None Genitourinary History: Reports: None Musculoskeletal History: Reports: Arthritis Neurological History: Reports: Seizure Psychiatric History: Reports: None Endocrine/Metabolic History: Reports: Diabetes, Type II Hematologic History: Reports: None Immunologic History: Reports: None Oncologic (Cancer) History: Reports: None Dermatologic History: Reports: None - Infectious Disease History Infectious Disease History: Reports: None - Past Surgical History Head Surgeries/Procedures: Reports: None HEENT Surgical History: Reports: Naso-Sinus Surgery, Retinal, Visual Social & Family History - Family History Family Medical History: Noncontributory - Tobacco Use Smoking Status *Q: Never Smoker Second Hand Smoke Exposure: Yes - Caffeine Use Caffeine Use: Reports: Coffee, Soda - Recreational Drug Use Recreational Drug Use: No ED ROS GENERAL - Review of Systems Review Of Systems: ROS reveals no pertinent complaints other than HPI. ED EXAM, GENERAL - Physical Exam Exam: See Below (See dictation) Course - Vital Signs Last Recorded V/S: Last Vital Signs Temp 36.0 C 01/01/19 04:23 Pulse 89 01/01/19 04:23 Resp 17 01/01/19 04:23 BP 125/80 01/01/19 04:23 Pulse Ox 97 01/01/19 04:23 - Orders/Labs/Meds Orders: Active Orders 24 hr Category Date Time Status Abdomen 2V AP Flat Upright [CR] Stat Exams 01/01/19 04:42 Ordered Meds: Medications Discontinued Medications Generic Name Dose Route Start Last Admin Trade Name Salvatoreq PRN Reason Stop Dose Admin Al Hydroxide/Mg Hydroxide 15 0 ml 01/01/19 04:41 01/01/19 04:48 ml/ Metoclopramide HCl 5 mg/ PO 01/01/19 04:42 1 each Lidocaine HCl 5 ml ONETIME ONE Administration Departure - Departure Time of Disposition: 05:02 Disposition: Home, Self-Care 01 Condition: Good Clinical Impression: Encounter for medical screening examination, Abdominal discomfort - Discharge Information Referrals: Ioana Godinez MD [Primary Care Provider] - Forms: ED Department Discharge Additional Instructions: The following information is given to patients seen in the emergency department who are being discharged to home. This information is to outline your options for follow-up care. We provide all patients seen in our emergency department with a follow-up referral. The need for follow-up, as well as the timing and circumstances, are variable depending upon the specifics of your emergency department visit. If you don't have a primary care physician on staff, we will provide you with a referral. We always advise you to contact your personal physician following an emergency department visit to inform them of the circumstance of the visit and for follow-up with them and/or the need for any referrals to a consulting specialist. The emergency department will also refer you to a specialist when appropriate. This referral assures that you have the opportunity for followup care with a specialist. All of these measure are taken in an effort to provide you with optimal care, which includes your followup. Under all circumstances we always encourage you to contact your private physician who remains a resource for coordinating your care. When calling for followup care, please make the office aware that this follow-up is from your recent emergency room visit. If for any reason you are refused follow-up, please contact the [facility] emergency department at and ask to speak to the emergency department charge nurse. [facility] Primary care- [place] [address] Push hydration and avoid caffeinated products and eat a bland diet for the next 24 hours. Use an [id number] stool softener along with some over-the- counter MiraLAX to help you with the constipation and stool/gas evacuation. Please call and schedule a follow-up appointment with your provider at [facility] or one of hours next week for reevaluation and further care and return to ER as needed and as discussed. - My Orders Last 24 Hours: My Active Orders 01/01/19 04:42 Abdomen 2V AP Flat Upright [CR] Stat - Assessment/Plan Last 24 Hours: My Active Orders 01/01/19 04:42 Abdomen 2V AP Flat Upright [CR] Stat
--- NOTE | 2019-01-01 05:14 | CR ---
INDICATION: Abdominal pain and nausea TECHNIQUE: Abdominal radiograph 2 views COMPARISON: 09/01/2016 FINDINGS: Severe degradation of image quality noted due to body habitus. Bowel: A moderate to large amount of stool is present within the cecum and descending colon. No bowel obstruction is seen. Soft tissue: No evidence of pneumoperitoneum present. No suspicious calcifications noted. Bone: Unremarkable for age. IMPRESSION: 1. Unremarkable appearance of the visualized abdomen. Dictated by Rah Drummond MD @ 01/01/2019 5:11:44 AM Dictated by: Rah Drummond MD @ 01/01/2019 05:11:48 (Electronically Signed)
[2019-01-01 05:16] VITALS: BP 112/71; PULSE 93
== END 2019-01-01 05:15 | disposition home or self-care (01) ==
LOC: MW.ED 04:16
DX: J34.89 Other specified disorders of nose and nasal sinuses (principal); K59.00 Constipation, unspecified; R10.84 Generalized abdominal pain; I10 Essential (primary) hypertension; E11.9 Type 2 diabetes mellitus without complications; E78.00 Pure hypercholesterolemia, unspecified; M19.90 Unspecified osteoarthritis, unspecified site; Z77.22 Contact with and (suspected) exposure to environmental tobacco smoke (acute) (chronic); Z79.82 Long term (current) use of aspirin; Z79.4 Long term (current) use of insulin; Z79.899 Other long term (current) drug therapy
CPT/HCPCS: 74018; 99284; A9270

== ENCOUNTER 2019-10-29 08:42 | Emergency (ER) | payer MEDICARE, MEDICAID ==
[2019-10-29] MEDS ORDERED: Albuterol 6.7 GM Inhaler INH ONE (09:31)
[2019-10-29] MEDS ORDERED: Albuterol 8 GM Inhaler INH ONE (09:31)
--- NOTE | 2019-10-29 09:36 | EDM.PDOC ---
ED HPI GENERAL MEDICAL PROBLEM - General Chief Complaint: Respiratory Problem Stated Complaint: SOB Time Seen by Provider: 10/29/19 09:00 - History of Present Illness INITIAL COMMENTS - FREE TEXT/NARRATIVE: History of present illness: Patient presents to the ED with concerns over shortness of breath which occurred after having an argument with a neighbor he is anxious and seems upset over the confrontation. He was not injured it was just verbal argument he states after this he began to feel short of breath he used to have an inhaler he no longer has when he thinks this might help him. He denies any cough congestion runny nose no chest pain specifically no pain in his chest no pain in his chest at all and no leg pain or leg swelling. Denies any sore throat he denies any trouble swallowing he has not had any difficulty with fevers or chills. No nausea or vomiting his vital signs are normal in the ED he appears anxious. Review of systems: As per history of present illness and below otherwise all systems reviewed and negative. Past medical history: As per history of present illness and as reviewed below otherwise noncontributory. Surgical history: As per history of present illness and as reviewed below otherwise noncontributory. Social history: No reported history of drug or alcohol abuse. Family history: As per history of present illness and as reviewed below otherwise noncontributory. Physical exam: HEENT: Atraumatic, normocephalic, pupils reactive, negative for conjunctival pallor or scleral icterus, mucous membranes moist, throat clear, neck supple, nontender, trachea midline. Lungs: Clear to auscultation, breath sounds equal bilaterally, chest nontender. No stridor no respiratory distress Heart: S1S2, regular, negative for clicks, rubs, or JVD. Abdomen: Soft, nondistended, nontender. Negative for masses or hepatosplenomegaly. Negative for costovertebral tenderness. Pelvis: Stable nontender. Genitourinary: Deferred. Rectal: Deferred. Extremities: Atraumatic, negative for cords or calf pain. Neurovascular unremarkable. Neuro: Awake, alert, oriented. Cranial nerves II through XII unremarkable. Cerebellum unremarkable. Motor and sensory unremarkable throughout. Exam nonfocal. Psych anxiety Diagnostics: [] Therapeutics: [] Impression: Anxiety reaction [] Plan: Patient has normal vitals he is in no respiratory distress breath sounds are perfectly clear he will be given an albuterol inhaler in the ED as he seems to think this will help him. [] Definitive disposition and diagnosis as appropriate pending reevaluation and review of above. Generalized Pain Score (Numeric/FACES): 6 - Related Data Allergies Allergy/AdvReac Type Severity Reaction Status Date / Time No Known Allergies Allergy Verified 10/29/19 09:00 Home Meds: Home Meds Divalproex Sodium [Depakote] 1,000 mg PO DAILY 05/11/15 [History] Insulin Glarg,Human.Rec.Analog [LantUS] 80 unit SUBCUT DAILY 05/18/15 [History] Insulin Lispro [Humalog] 40 unit SQ ASDIRECTED PRN 05/18/15 [History] Lisinopril 1 tab PO DAILY 03/02/16 [History] metFORMIN HCl [Metformin HCl] 750 mg PO BID 03/02/16 [History] Pregabalin [Lyrica] 100 mg PO DAILY 09/24/18 [History] Linagliptin [Tradjenta] 5 mg PO DAILY 01/01/19 [History] [place]-3/DHA/Epa/Fish Oil [Fish Oil 1,000 mg Softgel] 1 each PO DAILY 01/01/19 [History] Simvastatin [Zocor] 40 mg PO DAILY 01/01/19 [History] Past Medical History - Past Health History Medical/Surgical History: Denies Medical/Surgical History HEENT History: Reports: Impaired Vision Cardiovascular History: Reports: High Cholesterol, Hypertension Respiratory History: Reports: None Gastrointestinal History: Reports: None Genitourinary History: Reports: None Musculoskeletal History: Reports: Arthritis Neurological History: Reports: Seizure Psychiatric History: Reports: Anxiety Endocrine/Metabolic History: Reports: Diabetes, Type II Hematologic History: Reports: None Immunologic History: Reports: None Oncologic (Cancer) History: Reports: None Dermatologic History: Reports: None - Infectious Disease History Infectious Disease History: Reports: None - Past Surgical History Head Surgeries/Procedures: Reports: None HEENT Surgical History: Reports: Naso-Sinus Surgery, Retinal, Visual Cardiovascular Surgical History: Reports: None Respiratory Surgical History: Reports: None GI Surgical History: Reports: None Male Surgical History: Reports: None Endocrine Surgical History: Reports: None Neurological Surgical History: Reports: None Musculoskeletal Surgical History: Reports: None Dermatological Surgical History: Reports: None Social & Family History - Family History Family Medical History: Noncontributory - Tobacco Use Smoking Status *Q: Never Smoker Second Hand Smoke Exposure: Yes - Caffeine Use Caffeine Use: Reports: Soda - Recreational Drug Use Recreational Drug Use: No ED ROS GENERAL - Review of Systems Review Of Systems: See Below ED EXAM, GENERAL - Physical Exam Exam: See Below Course - Vital Signs Text/Narrative:: Patient is feeling better after some time in the emergency department he is calming down he was given an albuterol inhaler which he used and feels like that is helping him he will be discharged home follow-up with primary care. Last Recorded V/S: Last Vital Signs Temp 36.5 C 10/29/19 09:04 Pulse 82 10/29/19 09:04 Resp 18 10/29/19 09:04 BP 137/72 10/29/19 09:04 Pulse Ox 97 10/29/19 09:04 - Orders/Labs/Meds Orders: Active Orders 24 hr Category Date Time Status RT Post Treatment Assessment [RC] Click to Edit Care 10/29/19 09:32 Active RT Pre-Treatment Assessment [RC] Click to Edit Care 10/29/19 09:32 Active Meds: Medications Discontinued Medications Generic Name Dose Route Start Last Admin Trade Name Freq PRN Reason Stop Dose Admin Albuterol 0 gm 10/29/19 09:31 10/29/19 09:45 Proventil Hfa INH 10/29/19 09:32 Not Given ONETIME ONE Albuterol 2 gm 10/29/19 09:31 10/29/19 09:44 Ventolin Hfa INH 10/29/19 09:32 2 inhaler ONETIME ONE Administration Departure - Departure Time of Disposition: 10:11 Disposition: Home, Self-Care 01 Clinical Impression: Dyspnea, Anxiety - Discharge Information *PRESCRIPTION DRUG MONITORING PROGRAM REVIEWED*: Not Applicable *COPY OF PRESCRIPTION DRUG MONITORING REPORT IN PATIENT MANPREET: Not Applicable Instructions: Shortness of Breath, Adult, [id number] Referrals: Ioana Godinez MD [Primary Care Provider] - Forms: ED Department Discharge Additional Instructions: The following information is given to patients seen in the emergency department who are being discharged to home. This information is to outline your options for follow-up care. We provide all patients seen in our emergency department with a follow-up referral. The need for follow-up, as well as the timing and circumstances, are variable depending upon the specifics of your emergency department visit. If you don't have a primary care physician on staff, we will provide you with a referral. We always advise you to contact your personal physician following an emergency department visit to inform them of the circumstance of the visit and for follow-up with them and/or the need for any referrals to a consulting specialist. The emergency department will also refer you to a specialist when appropriate. This referral assures that you have the opportunity for follow-up care with a specialist. All of these measure are taken in an effort to provide you with optimal care, which includes your follow-up. Under all circumstances we always encourage you to contact your private physician who remains a resource for coordinating your care. When calling for follow-up care, please make the office aware that this follow-up is from your recent emergency room visit. If for any reason you are refused follow-up, please contact the [facility] Emergency Department at and asked to speak to the emergency department charge nurse. [facility] - Primary Care [address] [place] [address] [place] [address] Sepsis Event Note (ED) - Evaluation Sepsis Screening Result: No Definite Risk - Focused Exam Vital Signs: Vital Signs Temp Pulse Resp BP Pulse Ox 10/29/19 09:04 36.5 C 82 18 137/72 97 - My Orders Last 24 Hours: My Active Orders 10/29/19 09:32 RT Post Treatment Assessment [RC] Click to Edit RT Pre-Treatment Assessment [RC] Click to Edit - Assessment/Plan Last 24 Hours: My Active Orders 10/29/19 09:32 RT Post Treatment Assessment [RC] Click to Edit RT Pre-Treatment Assessment [RC] Click to Edit
[2019-10-29 10:20] VITALS: BP 106/73; PULSE 81
== END 2019-10-29 10:29 | disposition home or self-care (01) ==
LOC: MW.ED 08:42
DX: F41.1 Generalized anxiety disorder (principal); R06.00 Dyspnea, unspecified; I10 Essential (primary) hypertension; E78.00 Pure hypercholesterolemia, unspecified; E11.9 Type 2 diabetes mellitus without complications; M19.90 Unspecified osteoarthritis, unspecified site; Z77.22 Contact with and (suspected) exposure to environmental tobacco smoke (acute) (chronic); Z79.4 Long term (current) use of insulin; Z79.899 Other long term (current) drug therapy
CPT/HCPCS: 99284; A9270; 99283

== ENCOUNTER 2019-12-05 04:20 | Emergency (ER) | payer MEDICARE, MEDICAID ==
[2019-12-05] MEDS ORDERED: Sodium Chloride 0.9% 2.5 ML Syringe FLUSH PRN (04:34)
[2019-12-05] MEDS ORDERED: Sodium Chloride 0.9% 10 ML Syringe FLUSH PRN (04:34)
[2019-12-05] MEDS ORDERED: Famotidine 20 MG/2 ML SDV IVPUSH ONE (04:35)
[2019-12-05] MEDS ORDERED: Sodium Chloride 0.9% 1,000 ML IV ONE (04:35)
[2019-12-05] MEDS ORDERED: Ondansetron 4 MG/2 ML SDV IVPUSH ONE (04:35)
--- NOTE | 2019-12-05 04:39 | EDM.PDOC ---
ED HPI GENERAL MEDICAL PROBLEM - General Chief Complaint: Abdominal Pain Stated Complaint: ABDOMINAL PAIN Time Seen by Provider: 12/05/19 04:21 Source of Information: Reports: Patient History Limitations: Reports: No Limitations - History of Present Illness INITIAL COMMENTS - FREE TEXT/NARRATIVE: History of present illness: [Patient is 54-year-old male with a history of diabetes who presents with multiple vague symptoms this morning. He states that he woke up to give himself his morning meds which include subcutaneous insulin and shortly thereafter started to feel bloated, slightly diaphoretic, and a little bit dizzy. He decided to come in and get checked out for the symptoms. When asked if he checked his blood sugar before administering the insulin he said yes, but does not recall what the number was or if it was high or low. He denies any chest pain or shortness of breath. He denies any fever or chills. He denies any recent URI symptoms. He states that he was feeling fine prior to administering his medications. He had a bowel movement recently, states it was normal.] Review of systems: As per history of present illness and below otherwise all systems reviewed and negative. Past medical history: As per history of present illness and as reviewed below otherwise noncontributory. Surgical history: As per history of present illness and as reviewed below otherwise noncontributory. Social history: No reported history of drug or alcohol abuse. Family history: As per history of present illness and as reviewed below otherwise noncontributory. Physical exam: General: Awake, alert, no acute distress, A&O X3. HEENT: Atraumatic, normocephalic, pupils reactive, negative for conjunctival pallor or scleral icterus, mucous membranes moist, throat clear, neck supple, nontender, trachea midline. Lungs: Clear to auscultation, breath sounds equal bilaterally, chest nontender. Heart: RRR, normal S1S2, no JVD. Abdomen: Soft, nondistended, nontender. Negative for masses or hepatosplenomegaly. Negative for costovertebral tenderness. Pelvis: Stable nontender. Genitourinary: Deferred. Rectal: Deferred. Extremities: Atraumatic, no edema, Neurovascular unremarkable. Neuro: Motor and sensory grossly intact throughout. Exam nonfocal. Diagnostics: [] Therapeutics: [] Impression: [] Plan: [] Definitive disposition and diagnosis as appropriate pending reevaluation and review of above. Abdomen Pain Score (Numeric/FACES): 6 - Related Data Allergies Allergy/AdvReac Type Severity Reaction Status Date / Time No Known Allergies Allergy Verified 12/05/19 04:30 Home Meds: Home Meds Divalproex Sodium [Depakote] 1,000 mg PO DAILY 05/11/15 [History] Insulin Glarg,Human.Rec.Analog [LantUS] 80 unit SUBCUT DAILY 05/18/15 [History] Insulin Lispro [Humalog] 40 unit SQ ASDIRECTED PRN 05/18/15 [History] Lisinopril 1 tab PO DAILY 03/02/16 [History] metFORMIN HCl [Metformin HCl] 750 mg PO BID 03/02/16 [History] Pregabalin [Lyrica] 100 mg PO DAILY 09/24/18 [History] Linagliptin [Tradjenta] 5 mg PO DAILY 01/01/19 [History] [place]-3/DHA/Epa/Fish Oil [Fish Oil 1,000 mg Softgel] 1 each PO DAILY 01/01/19 [History] Simvastatin [Zocor] 40 mg PO DAILY 01/01/19 [History] Past Medical History - Past Health History Medical/Surgical History: Denies Medical/Surgical History HEENT History: Reports: Impaired Vision Cardiovascular History: Reports: High Cholesterol, Hypertension Respiratory History: Reports: None Gastrointestinal History: Reports: None Genitourinary History: Reports: None Musculoskeletal History: Reports: Arthritis Neurological History: Reports: Seizure Psychiatric History: Reports: Anxiety Endocrine/Metabolic History: Reports: Diabetes, Type II Insulin Pump Model [employer]ice: None Hematologic History: Reports: None Immunologic History: Reports: None Oncologic (Cancer) History: Reports: None Dermatologic History: Reports: None - Infectious Disease History Infectious Disease History: Reports: None - Past Surgical History Head Surgeries/Procedures: Reports: None HEENT Surgical History: Reports: Naso-Sinus Surgery, Retinal, Visual Cardiovascular Surgical History: Reports: None Respiratory Surgical History: Reports: None GI Surgical History: Reports: None Male Surgical History: Reports: None Endocrine Surgical History: Reports: None Neurological Surgical History: Reports: None Musculoskeletal Surgical History: Reports: None Dermatological Surgical History: Reports: None Social & Family History - Family History Family Medical History: Noncontributory - Tobacco Use Smoking Status *Q: Never Smoker - Caffeine Use Caffeine Use: Reports: Coffee, Soda - Recreational Drug Use Recreational Drug Use: No ED ROS GENERAL - Review of Systems Review Of Systems: Comprehensive ROS is negative, except as noted in HPI. ED EXAM, GI/ABD - Physical Exam Exam: See Below (see h and p) EKG INTERPRETATION EKG Date: 12/05/19 Time: 04:56 Rhythm: NSR Rate (Beats/Min): 87 [place]: RAD-Right [place] Deviation P-Wave: Present QRS: Normal ST-T: Normal QT: Normal Course - Vital Signs Text/Narrative:: On reassessment patient is feeling comfortable. Not having abdominal pain. Remains free of any chest pain or shortness of breath. Vital signs are stable. The work appears reassuring. Labs show an elevated creatinine, this appears to be similar to previous, creatinine seems to range between 1.4 and 2. Troponin negative, EKG nonischemic, patient has no acute complaints at this time. Encouraged him to follow-up in the outpatient setting with PCP. Imaging unremarkable. Stable and well-appearing at discharge. Last Recorded V/S: Last Vital Signs Temp 35.8 C L 12/05/19 04:30 Pulse 75 12/05/19 06:15 Resp 18 12/05/19 06:15 BP 96/77 12/05/19 06:15 Pulse Ox 95 12/05/19 06:15 - Orders/Labs/Meds Orders: Active Orders 24 hr Category Date Time Status EKG Documentation Completion [RC] STAT Care 12/05/19 04:36 Active Sodium Chloride 0.9% [Saline Flush] Med 12/05/19 04:34 Active 10 ml FLUSH ASDIRECTED PRN Sodium Chloride 0.9% [Saline Flush] Med 12/05/19 04:34 Active 2.5 ml FLUSH ASDIRECTED PRN Saline Lock Insert [OM.PC] Stat Oth 12/05/19 04:34 Ordered Medication Orders Sodium Chloride (Saline Flush) 10 ml FLUSH ASDIRECTED PRN PRN Reason: Keep Vein Open Sodium Chloride (Saline Flush) 2.5 ml FLUSH ASDIRECTED PRN PRN Reason: Keep Vein Open Labs: Laboratory Tests 12/05/19 12/05/19 12/05/19 Range/Units 04:40 04:43 04:55 WBC 6.10 (4.0-11.0) K/uL RBC 4.92 (4.50-5.90) M/uL Hgb 14.9 (13.0-17.0) g/dL Hct 45.8 (38.0-50.0) % MCV 93.1 (80.0-98.0) fL MCH 30.3 (27.0-32.0) pg MCHC 32.5 (31.0-37.0) g/dL RDW Std Deviation 49.6 (28.0-62.0) fl RDW Coeff of Lety 15 (11.0-15.0) % Plt Count 170 (150-400) K/uL MPV 10.70 (7.40-12.00) fL Neut % (Auto) 62.8 (48.0-80.0) % Lymph % (Auto) 22.5 (16.0-40.0) % Becker % (Auto) 11.3 (0.0-15.0) % Eos % (Auto) 3.1 (0.0-7.0) % Baso % (Auto) 0.3 (0.0-1.5) % Neut # (Auto) 3.8 (1.4-5.7) K/uL Lymph # (Auto) 1.4 (0.6-2.4) K/uL Becker # (Auto) 0.7 (0.0-0.8) K/uL Eos # (Auto) 0.2 (0.0-0.7) K/uL Baso # (Auto) 0.0 (0.0-0.1) K/uL Nucleated RBC % 0.0 /100WBC Nucleated RBCs # 0 K/uL Sodium 137 (136-148) mmol/L Potassium 4.5 (3.5-5.1) mmol/L Chloride 101 (98-107) mmol/L Carbon Dioxide 25.9 (21.0-32.0) mmol/L BUN 23 H (7.0-18.0) mg/dL Creatinine 1.9 H (0.8-1.3) mg/dL Est Cr Clr Drug Dosing TNP Estimated GFR (MDRD) 37.3 ml/min Glucose 146 H (74-106) mg/dL POC Glucose 128 H (60-110) mg/dL Calcium 9.2 (8.5-10.1) mg/dL Total Bilirubin 0.3 (0.2-1.0) mg/dL AST 30 (15-37) IU/L ALT 40 (14-63) IU/L Alkaline Phosphatase 96 (46-116) U/L Troponin I < 0.050 (0.000-0.056) ng/mL Total Protein 8.1 (6.4-8.2) g/dL Albumin 3.9 (3.4-5.0) g/dL Globulin 4.2 H (2.6-4.0) g/dL Albumin/Globulin Ratio 0.9 (0.9-1.6) Meds: Medications Generic Name Dose Route Start Last Admin Trade Name Freq PRN Reason Stop Dose Admin Sodium Chloride 10 ml 12/05/19 04:34 Saline Flush FLUSH ASDIRECTED PRN Keep Vein Open Sodium Chloride 2.5 ml 12/05/19 04:34 Saline Flush FLUSH ASDIRECTED PRN Keep Vein Open Discontinued Medications Generic Name Dose Route Start Last Admin Trade Name Freq PRN Reason Stop Dose Admin Famotidine 20 mg 12/05/19 04:35 12/05/19 05:00 Pepcid IVPUSH 12/05/19 04:36 20 mg ONETIME ONE Administration Famotidine Confirm 12/05/19 04:50 12/05/19 05:27 Pepcid Administered 12/05/19 04:51 Not Given Dose 20 mg .ROUTE .STK-MED ONE Sodium Chloride 1,000 mls @ 999 mls/hr 12/05/19 04:35 12/05/19 05:00 Normal Saline IV 12/05/19 05:35 999 mls/hr .Bolus ONE Administration Ondansetron HCl 4 mg 12/05/19 04:35 12/05/19 05:00 Zofran IVPUSH 12/05/19 04:36 4 mg ONETIME ONE Administration Ondansetron HCl Confirm 12/05/19 04:50 12/05/19 05:27 Zofran Administered 12/05/19 04:51 Not Given Dose 4 mg .ROUTE .STK-MED ONE Departure - Departure Time of Disposition: 06:33 Disposition: Home, Self-Care 01 Condition: Good Clinical Impression: Bloating symptom - Discharge Information Instructions: Abdominal Bloating Referrals: Ioana Godinez MD [Primary Care Provider] - Forms: ED Department Discharge Additional Instructions: Follow-up with primary care doctor. Take all medications as previously prescribed. Return to the ER with any new or worsening symptoms. The following information is given to patients seen in the emergency department who are being discharged to home. This information is to outline your options for follow-up care. We provide all patients seen in our emergency department with a follow-up referral. The need for follow-up, as well as the timing and circumstances, are variable depending upon the specifics of your emergency department visit. If you don't have a primary care physician on staff, we will provide you with a referral. We always advise you to contact your personal physician following an emergency department visit to inform them of the circumstance of the visit and for follow-up with them and/or the need for any referrals to a consulting specialist. The emergency department will also refer you to a specialist when appropriate. This referral assures that you have the opportunity for follow-up care with a specialist. All of these measure are taken in an effort to provide you with optimal care, which includes your follow-up. Under all circumstances we always encourage you to contact your private physician who remains a resource for coordinating your care. When calling for follow-up care, please make the office aware that this follow-up is from your recent emergency room visit. If for any reason you are refused follow-up, please contact the [facility] Emergency Department at and asked to speak to the emergency department charge nurse. Sepsis Event Note (ED) - Evaluation Sepsis Screening Result: No Definite Risk - Focused Exam Vital Signs: Vital Signs Temp Pulse Resp BP Pulse Ox 12/05/19 06:15 75 18 96/77 95 12/05/19 04:30 35.8 C L 105 H 18 127/80 98 - My Orders Last 24 Hours: My Active Orders 12/05/19 04:34 Sodium Chloride 0.9% [Saline Flush] 10 ml FLUSH ASDIRECTED PRN Sodium Chloride 0.9% [Saline Flush] 2.5 ml FLUSH ASDIRECTED PRN Saline Lock Insert [OM.PC] Stat 12/05/19 04:36 EKG Documentation Completion [RC] STAT - Assessment/Plan Last 24 Hours: My Active Orders 12/05/19 04:34 Sodium Chloride 0.9% [Saline Flush] 10 ml FLUSH ASDIRECTED PRN Sodium Chloride 0.9% [Saline Flush] 2.5 ml FLUSH ASDIRECTED PRN Saline Lock Insert [OM.PC] Stat 12/05/19 04:36 EKG Documentation Completion [RC] STAT
[2019-12-05] MEDS ORDERED: Famotidine 20 MG/2 ML SDV ONE (04:50)
[2019-12-05] MEDS ORDERED: Ondansetron 4 MG/2 ML SDV ONE (04:50)
[2019-12-05 05:28] LABS: BLOOD UREA NITROGEN,BUN 23 mg/dL (7.0-18.0); CARBON DIOXIDE,CO2 25.9 mmol/L (21.0-32.0); CHLORIDE,CL 101 mmol/L (98-107); GLUCOSE RANDOM 146 mg/dL (74-106); POTASSIUM,K 4.5 mmol/L (3.5-5.1); SODIUM,NA 137 mmol/L (136-148)
--- NOTE | 2019-12-05 06:28 | CR ---
INDICATIONS: Abdominal bloating . Comparison: None. TECHNIQUE: Portable AP chest. FINDINGS: Normal size cardiac silhouette. Poor inspiration with low lung volumes. No acute pneumonic infiltrates or CHF. No pneumothorax or pleural effusion. IMPRESSION: Negative portable AP chest. Dictated by Thomas Rivera MD @ Dec 05 2019 6:25AM Signed by Dr. Thomas Rivera @ Dec 05 2019 6:26AM
--- NOTE | 2019-12-05 06:28 | CR ---
INDICATION: Abdominal bloating. COMPARISON: None. Technique: KUB. FINDINGS: Nonspecific intestinal gas pattern without any evidence of intestinal obstruction. No abnormal intra-abdominal calcifications. Disc degeneration and disc space narrowing entire lumbar sacral spine. IMPRESSION: Negative KUB. Dictated by Thomas Rivera MD @ Dec 05 2019 6:27AM Signed by Dr. Thomas Rivera @ Dec 05 2019 6:27AM
[2019-12-05 06:36] VITALS: BP 114/70; PULSE 82
== END 2019-12-05 06:40 | disposition home or self-care (01) ==
LOC: MW.ED 04:20
DX: R14.0 Abdominal distension (gaseous) (principal); I10 Essential (primary) hypertension; E78.00 Pure hypercholesterolemia, unspecified; E11.9 Type 2 diabetes mellitus without complications; F41.9 Anxiety disorder, unspecified; Z79.899 Other long term (current) drug therapy
CPT/HCPCS: 36415; 71045; 74018; 80053; 82962; 84484; 85025; 93005; 96361; 96374; 96375; 99284; J2405; J3490; J7030; 93010; 99283

== ENCOUNTER 2019-12-13 11:24 | Emergency (ER) | payer MEDICARE, MEDICAID, OTHER ==
[2019-12-13] MEDS ORDERED: Sodium Chloride 0.9% 2.5 ML Syringe FLUSH PRN (11:31)
[2019-12-13] MEDS ORDERED: Sodium Chloride 0.9% 10 ML Syringe FLUSH PRN (11:31)
--- NOTE | 2019-12-13 11:37 | EDM.PDOC ---
ED HPI GENERAL MEDICAL PROBLEM - General Chief Complaint: Respiratory Problem Stated Complaint: SOB Time Seen by Provider: 12/13/19 11:31 Source of Information: Reports: Patient, EMS - History of Present Illness INITIAL COMMENTS - FREE TEXT/NARRATIVE: History of present illness: 54-year-old male brought by EMS presenting with Shortness of breath and dizziness. Symptoms began this morning. Patient apparently took his albuterol this morning as prescribed, and the shortness of breath improved but now is starting to get worse again. Also feeling somewhat dizzy. Denies any chest pain or leg pain. No cough. Does not recall any fevers or chills. Patient does report that 1 of his neighbors that lives upstairs in his apartment building either was recently diagnosed with COVID or had some exposure at where she works at a daycare, patient is uncertain. He appears to have some what of a developmental delay and is limited in his ability to give his past medical history as well. Per EMS he lives in a private apartment in apartment building that does have some occasional visiting nurse assistance including organizing the patient's medications, and other residents of this facility have similar developmental delay. Review of systems: As per history of present illness and below otherwise all systems reviewed and negative. Past medical history: As per history of present illness and as reviewed below otherwise noncontributory. Asthma, hypertension, diabetes Surgical history: As per history of present illness and as reviewed below otherwise noncontributory. Denies Social history: No reported history of drug or alcohol abuse. Non-smoker but does have secondhand exposure Family history: As per history of present illness and as reviewed below otherwise noncontributory. Physical exam: GEN: no acute distress, well appearing HEENT: Atraumatic, normocephalic, mucous membranes moist, Neck: supple, nontender, trachea midline. Lungs: No respiratory distress. Oxygen saturation 96% on room air Heart: RRR Extremities: Atraumatic. Neurovascularly intact. Neuro: Awake, alert, oriented. Neuro Exam nonfocal. Alert and oriented, however appears somewhat confused about his own past medical history, not able to give his own height and weight. Skin: warm, dry, no lesions Diagnostics: Labs, chest x-ray, EKG, COVID swab Therapeutics: [] MDM: Impression: [] Plan: [] Definitive disposition and diagnosis as appropriate pending reevaluation and review of above. - Related Data Allergies Allergy/AdvReac Type Severity Reaction Status Date / Time No Known Allergies Allergy Verified 12/13/19 11:29 Home Meds: Home Meds Divalproex Sodium [Depakote] 1,000 mg PO DAILY 05/11/15 [History] Insulin Glarg,Human.Rec.Analog [LantUS] 80 unit SUBCUT DAILY 05/18/15 [History] Insulin Lispro [Humalog] 40 unit SQ ASDIRECTED PRN 05/18/15 [History] Lisinopril 1 tab PO DAILY 03/02/16 [History] metFORMIN HCl [Metformin HCl] 750 mg PO BID 03/02/16 [History] Pregabalin [Lyrica] 100 mg PO DAILY 09/24/18 [History] Linagliptin [Tradjenta] 5 mg PO DAILY 01/01/19 [History] [place]-3/DHA/Epa/Fish Oil [Fish Oil 1,000 mg Softgel] 1 each PO DAILY 01/01/19 [History] Simvastatin [Zocor] 40 mg PO DAILY 01/01/19 [History] Albuterol Sulfate 5 mg IH Q4HR #30 solution 12/13/19 [Rx] predniSONE [Prednisone] 40 mg PO DAILY 5 Days #15 tablet 12/13/19 [Rx] Past Medical History - Past Health History Medical/Surgical History: Denies Medical/Surgical History HEENT History: Reports: Impaired Vision Cardiovascular History: Reports: High Cholesterol, Hypertension Respiratory History: Reports: None Gastrointestinal History: Reports: None Genitourinary History: Reports: None Musculoskeletal History: Reports: Arthritis Neurological History: Reports: Seizure Psychiatric History: Reports: Anxiety Endocrine/Metabolic History: Reports: Diabetes, Type II Insulin Pump Model and Carriage Dogger: None Hematologic History: Reports: None Immunologic History: Reports: None Oncologic (Cancer) History: Reports: None Dermatologic History: Reports: None - Infectious Disease History Infectious Disease History: Reports: None - Past Surgical History Head Surgeries/Procedures: Reports: None HEENT Surgical History: Reports: Naso-Sinus Surgery, Retinal, Visual Cardiovascular Surgical History: Reports: None Respiratory Surgical History: Reports: None GI Surgical History: Reports: None Male Surgical History: Reports: None Endocrine Surgical History: Reports: None Neurological Surgical History: Reports: None Musculoskeletal Surgical History: Reports: None Dermatological Surgical History: Reports: None Social & Family History - Family History Family Medical History: Noncontributory - Tobacco Use Smoking Status *Q: Never Smoker Second Hand Smoke Exposure: Yes - Caffeine Use Caffeine Use: Reports: Soda, Tea - Recreational Drug Use Recreational Drug Use: No ED ROS GENERAL - Review of Systems Review Of Systems: See Below (See HPI) ED EXAM, GENERAL - Physical Exam Exam: See Below (See HPI) EKG INTERPRETATION EKG Interpretation Comments: EKG performed today at 12:08 PM, sinus rhythm, rate 84, left anterior fascicular block, QTc 424, no acute ischemia or STEMI. Interpreted by me. Course - Vital Signs Last Recorded V/S: Last Vital Signs Temp 96.1 F L 12/13/19 11:26 Pulse 83 12/13/19 13:01 Resp 17 12/13/19 11:26 BP 119/73 12/13/19 13:01 Pulse Ox 96 12/13/19 11:26 - Orders/Labs/Meds Orders: Active Orders 24 hr Category Date Time Status EKG Documentation Completion [RC] STAT Care 12/13/19 11:31 Active RT Aerosol Therapy [RC] ASDIRECTED Care 12/13/19 12:01 Active Sodium Chloride 0.9% [Saline Flush] Med 12/13/19 11:31 Active 10 ml FLUSH ASDIRECTED PRN Sodium Chloride 0.9% [Saline Flush] Med 12/13/19 11:31 Active 2.5 ml FLUSH ASDIRECTED PRN predniSONE Med 12/14/19 13:09 Once 40 mg PO ONETIME ONE Saline Lock Insert [OM.PC] Stat Oth 12/13/19 11:31 Ordered Medication Orders Prednisone (Prednisone) 40 mg PO ONETIME ONE Stop: 12/14/19 13:10 Sodium Chloride (Saline Flush) 10 ml FLUSH ASDIRECTED PRN PRN Reason: Keep Vein Open Sodium Chloride (Saline Flush) 2.5 ml FLUSH ASDIRECTED PRN PRN Reason: Keep Vein Open Labs: Laboratory Tests 12/13/19 12/13/19 12/13/19 Range/Units 11:31 11:31 11:31 WBC 4.53 (4.0-11.0) K/uL RBC 4.82 (4.50-5.90) M/uL Hgb 14.7 (13.0-17.0) g/dL Hct 44.6 (38.0-50.0) % MCV 92.5 (80.0-98.0) fL MCH 30.5 (27.0-32.0) pg MCHC 33.0 (31.0-37.0) g/dL RDW Std Deviation 50.2 (28.0-62.0) fl RDW Coeff of Lety 15 (11.0-15.0) % Plt Count 189 (150-400) K/uL MPV 11.20 (7.40-12.00) fL Neut % (Auto) 62.5 (48.0-80.0) % Lymph % (Auto) 22.7 (16.0-40.0) % Sharkey % (Auto) 11.3 (0.0-15.0) % Eos % (Auto) 3.3 (0.0-7.0) % Baso % (Auto) 0.2 (0.0-1.5) % Neut # (Auto) 2.8 (1.4-5.7) K/uL Lymph # (Auto) 1.0 (0.6-2.4) K/uL Sharkey # (Auto) 0.5 (0.0-0.8) K/uL Eos # (Auto) 0.2 (0.0-0.7) K/uL Baso # (Auto) 0.0 (0.0-0.1) K/uL Nucleated RBC % 0.0 /100WBC Nucleated RBCs # 0 K/uL Sodium 138 (136-148) mmol/L Potassium 4.6 (3.5-5.1) mmol/L Chloride 104 (98-107) mmol/L Carbon Dioxide 26.1 (21.0-32.0) mmol/L BUN 16 (7.0-18.0) mg/dL Creatinine 1.6 H (0.8-1.3) mg/dL Est Cr Clr Drug Dosing 51.66 mL/min Estimated GFR (MDRD) 45.4 ml/min Glucose 211 H (74-106) mg/dL Calcium 9.0 (8.5-10.1) mg/dL Total Bilirubin 0.4 (0.2-1.0) mg/dL AST 34 (15-37) IU/L ALT 34 (14-63) IU/L Alkaline Phosphatase 77 (46-116) U/L Troponin I < 0.050 (0.000-0.056) ng/mL B-Natriuretic Peptide 10 (<100) PG/ML Total Protein 7.4 (6.4-8.2) g/dL Albumin 3.4 (3.4-5.0) g/dL Globulin 4.0 (2.6-4.0) g/dL Albumin/Globulin Ratio 0.9 (0.9-1.6) COVID-19 (WILLIE) (NEGATIVE) 12/13/19 Range/Units 11:34 WBC (4.0-11.0) K/uL RBC (4.50-5.90) M/uL Hgb (13.0-17.0) g/dL Hct (38.0-50.0) % MCV (80.0-98.0) fL MCH (27.0-32.0) pg MCHC (31.0-37.0) g/dL RDW Std Deviation (28.0-62.0) fl RDW Coeff of Lety (11.0-15.0) % Plt Count (150-400) K/uL MPV (7.40-12.00) fL Neut % (Auto) (48.0-80.0) % Lymph % (Auto) (16.0-40.0) % Sharkey % (Auto) (0.0-15.0) % Eos % (Auto) (0.0-7.0) % Baso % (Auto) (0.0-1.5) % Neut # (Auto) (1.4-5.7) K/uL Lymph # (Auto) (0.6-2.4) K/uL Sharkey # (Auto) (0.0-0.8) K/uL Eos # (Auto) (0.0-0.7) K/uL Baso # (Auto) (0.0-0.1) K/uL Nucleated RBC % /100WBC Nucleated RBCs # K/uL Sodium (136-148) mmol/L Potassium (3.5-5.1) mmol/L Chloride (98-107) mmol/L Carbon Dioxide (21.0-32.0) mmol/L BUN (7.0-18.0) mg/dL Creatinine (0.8-1.3) mg/dL Est Cr Clr Drug Dosing mL/min Estimated GFR (MDRD) ml/min Glucose (74-106) mg/dL Calcium (8.5-10.1) mg/dL Total Bilirubin (0.2-1.0) mg/dL AST (15-37) IU/L ALT (14-63) IU/L Alkaline Phosphatase (46-116) U/L Troponin I (0.000-0.056) ng/mL B-Natriuretic Peptide (<100) PG/ML Total Protein (6.4-8.2) g/dL Albumin (3.4-5.0) g/dL Globulin (2.6-4.0) g/dL Albumin/Globulin Ratio (0.9-1.6) COVID-19 (WILLIE) NEGATIVE (NEGATIVE) Meds: Medications Generic Name Dose Route Start Last Admin Trade Name Freq PRN Reason Stop Dose Admin Prednisone 40 mg 12/14/19 13:09 Prednisone PO 12/14/19 13:10 ONETIME ONE Sodium Chloride 10 ml 12/13/19 11:31 Saline Flush FLUSH ASDIRECTED PRN Keep Vein Open Sodium Chloride 2.5 ml 12/13/19 11:31 Saline Flush FLUSH ASDIRECTED PRN Keep Vein Open Discontinued Medications Generic Name Dose Route Start Last Admin Trade Name Freq PRN Reason Stop Dose Admin Albuterol/Ipratropium 3 ml 12/13/19 12:00 12/13/19 12:44 Duoneb 3.0-0.5 Mg/3 Ml NEB 12/13/19 12:01 3 ml ONETIME ONE Administration Sodium Chloride 1,000 mls @ 999 mls/hr 12/13/19 12:00 12/13/19 11:30 Normal Saline IV 12/13/19 13:00 999 mls/hr .BOLUS ONE Administration - Re-Assessments/Exams Free Text/Narrative Re-Assessment/Exam: 12/13/19 13:07 The patient was initially refusing chest x-ray, however when I discussed the importance of chest x-ray since his presentation was shortness of breath, he reported that he did not want to have to go down to the radiology department to do a x-ray and therefore he will have a portable done here in the room. Patient refused 2 view x-ray. 12/13/19 14:04 Resting comfortably and in no acute distress. Reports his breathing is much better and he would like to be discharged home. I discussed all results with the patient and plan of care. Patient already has albuterol inhaler at home which she has been using without much improvement. Will start on prednisone burst prescription and discussed idea of nebulizer machine. He does report that he is asked with his primary care doctor for this in the past and he did have 1 in the past but it got old and is no longer functional. Therefore I will write a prescription for an albuterol nebulizer liquid and a nebulizer machine as sunita gonzalez. Departure - Departure Time of Disposition: 14:06 Disposition: Home, Self-Care 01 Clinical Impression: Bronchitis, Asthma - Discharge Information Prescriptions: Albuterol Sulfate 5 mg IH Q4HR #30 solution predniSONE [Prednisone] 40 mg PO DAILY 5 Days #15 tablet Instructions: Asthma, Adult, Shortness of Breath, Adult, [id number], Upper Respiratory Infection, Adult, [id number], Peak Flow Meter, Bronchospasm, Adult, Upper Respiratory Infection, Adult, Acute Bronchitis, Adult, [id number], How to Use a Nebulizer, Adult, Asthma, Adult, [id number], Asthma Attack Prevention, Adult Referrals: PCP,None [Primary Care Provider] - Forms: ED Department Discharge Additional Instructions: Get plenty of rest. Use your albuterol inhaler as needed. Please take the prednisone prescription for the next 5 days. If your albuterol inhaler is not adequately helping your breathing, please use the albuterol nebulizer solution with the prescribed nebulizer machine. You may do this every 4 hours as needed. Return to the ER if you develop any worsening breathing difficulty. Follow-up with your primary care physician as soon as possible. The following information is given to patients seen in the emergency department who are being discharged to home. This information is to outline your options for follow-up care. We provide all patients seen in our emergency department with a follow-up referral. The need for follow-up, as well as the timing and circumstances, are variable depending upon the specifics of your emergency department visit. If you don't have a primary care physician on staff, we will provide you with a referral. We always advise you to contact your personal physician following an emergency department visit to inform them of the circumstance of the visit and for follow-up with them and/or the need for any referrals to a consulting specialist. The emergency department will also refer you to a specialist when appropriate. This referral assures that you have the opportunity for follow-up care with a specialist. All of these measure are taken in an effort to provide you with optimal care, which includes your follow-up. Under all circumstances we always encourage you to contact your private physician who remains a resource for coordinating your care. When calling for follow-up care, please make the office aware that this follow-up is from your recent emergency room visit. If for any reason you are refused follow-up, please contact the Emergency Department at and asked to speak to the emergency department charge nurse. [facility] - Primary Care [address] [place] [id number] [address] [id number] Sepsis Event Note (ED) - Evaluation Sepsis Screening Result: No Definite Risk - Focused Exam Vital Signs: Vital Signs Temp Pulse Resp BP Pulse Ox 12/13/19 13:01 83 119/73 12/13/19 11:26 96.1 F L 92 17 138/84 96 - My Orders Last 24 Hours: My Active Orders 12/13/19 11:31 EKG Documentation Completion [RC] STAT Sodium Chloride 0.9% [Saline Flush] 10 ml FLUSH ASDIRECTED PRN Sodium Chloride 0.9% [Saline Flush] 2.5 ml FLUSH ASDIRECTED PRN Saline Lock Insert [OM.PC] Stat 12/13/19 12:01 RT Aerosol Therapy [RC] ASDIRECTED 12/14/19 13:09 predniSONE 40 mg PO ONETIME ONE - Assessment/Plan Last 24 Hours: My Active Orders 12/13/19 11:31 EKG Documentation Completion [RC] STAT Sodium Chloride 0.9% [Saline Flush] 10 ml FLUSH ASDIRECTED PRN Sodium Chloride 0.9% [Saline Flush] 2.5 ml FLUSH ASDIRECTED PRN Saline Lock Insert [OM.PC] Stat 12/13/19 12:01 RT Aerosol Therapy [RC] ASDIRECTED 12/14/19 13:09 predniSONE 40 mg PO ONETIME ONE
[2019-12-13] MEDS ORDERED: Albuterol/Ipratropium 3.0-0.5 MG/3 ML Neb Soln NEB ONE (12:00)
[2019-12-13] MEDS ORDERED: Sodium Chloride 0.9% 1,000 ML IV ONE (12:00)
[2019-12-13 12:10] LABS: BLOOD UREA NITROGEN,BUN 16 mg/dL (7.0-18.0); CARBON DIOXIDE,CO2 26.1 mmol/L (21.0-32.0); CHLORIDE,CL 104 mmol/L (98-107); GLUCOSE RANDOM 211 mg/dL (74-106); POTASSIUM,K 4.6 mmol/L (3.5-5.1); SODIUM,NA 138 mmol/L (136-148)
--- NOTE | 2019-12-13 13:34 | CR ---
Chest: Portable view of the chest was obtained. Comparison: Previous chest x-ray of 12/05/19. Heart size and mediastinum are normal. Lungs are clear with no acute parenchymal change. Bony structures are grossly intact. Impression: 1. Nothing acute is seen on portable chest x-ray. Diagnostic code #1 This report was dictated in MDT
[2019-12-13] MEDS ORDERED: predniSONE 20 MG Tab ONE (14:05)
[2019-12-13] MEDS ORDERED: predniSONE 20 MG Tab PO ONE (14:15)
[2019-12-14 07:16] VITALS: BP 115/74; PULSE 76
[2019-12-14] MEDS ORDERED: predniSONE 20 MG Tab PO ONE (13:09)
== END 2019-12-13 14:50 | disposition home or self-care (01) ==
LOC: MW.ED 11:24
DX: J45.909 Unspecified asthma, uncomplicated (principal); E78.00 Pure hypercholesterolemia, unspecified; E11.9 Type 2 diabetes mellitus without complications; I10 Essential (primary) hypertension; R56.9 Unspecified convulsions; Z79.4 Long term (current) use of insulin; Z20.828 Contact with and (suspected) exposure to other viral communicable diseases; Z79.899 Other long term (current) drug therapy; Z77.22 Contact with and (suspected) exposure to environmental tobacco smoke (acute) (chronic)
CPT/HCPCS: 36415; 71045; 80053; 83880; 84484; 85025; 93005; 94640; 96360; 99285; A9270; J7030; U0002; 99283; J7620-GY

== ENCOUNTER 2020-03-03 04:15 | Emergency (ER) | payer MEDICARE, MEDICAID ==
--- NOTE | 2020-03-03 04:28 | EDM.PDOC ---
ED HPI GENERAL MEDICAL PROBLEM - General Stated Complaint: UPSET STOMACH Time Seen by Provider: 03/03/20 04:45 - History of Present Illness INITIAL COMMENTS - FREE TEXT/NARRATIVE: History of present illness: [] The patient has had trouble sleeping and been up and down during the night. He is a vague historian but is sometime during the night he began to have epigastric pain. He has some degree of epigastric pain or heartburn frequently and he takes some sort of pill for his stomach. His medication list does not list anything is an H2 balbir or a PPI. The patient is on continuous low-dose prednisone. The patient also said he took Rolaids and it did not help. He is kind of a burning pain in the epigastrium is keeping him from sleeping. He is a non-smoker and has no history of heart disease but he is a diabetic and takes blood pressure medicine. Review of systems: As per history of present illness and below otherwise all systems reviewed and negative. Past medical history: As per history of present illness and as reviewed below otherwise noncontributory. Surgical history: As per history of present illness and as reviewed below otherwise noncontributory. Social history: No reported history of drug or alcohol abuse. Family history: As per history of present illness and as reviewed below otherwise noncontributory. Physical exam: Constitutional - well developed, well-nourished and in no acute distress HEENT - normocephalic, no evidence of trauma - external nose and mouth normal - no mass in neck and no JVD - mucosae moist EYES - full EOM, PERRL, no icterus - no evidence of inflammation, injection, or drainage Respiratory - no respiratory distress, equal bilateral expansion, lungs clear to auscultation and no abnormal lung sounds Cardiovascular - Regular Rhythm with S1 and S2 appreciated and no murmur, gallop or rub. GI -normal tenderness in the epigastrium. Abdomen soft without distension or organomegaly - normal bowel sounds - no guard or rebound Musculoskeletal no gross deformity of long bones or joints - no tenderness, swelling or edema Neurologic - Alert and oriented times four - CN II-XII grossly intact - motor sensory and coordination symmetrically normal Psychiatric - appropriate mood and affect with normal thought content Hematologic - No petechiae or purpura - mucosa appropriate color and sclera not pale - normal nail bed color and refill Integument - no rash or evidence of trauma - normal turgor Diagnostics: [] Therapeutics: [] Impression: [] Plan: [] Definitive disposition and diagnosis as appropriate pending reevaluation and review of above. abdominal Pain Score (Numeric/FACES): 8 - Related Data Allergies Allergy/AdvReac Type Severity Reaction Status Date / Time No Known Allergies Allergy Verified 03/03/20 04:31 Home Meds: Home Meds Divalproex Sodium [Depakote] 1,000 mg PO DAILY 05/11/15 [History] Insulin Glarg,Human.Rec.Analog [LantUS] 80 unit SUBCUT DAILY 05/18/15 [History] Insulin Lispro [Humalog] 40 unit SQ ASDIRECTED PRN 05/18/15 [History] Lisinopril 1 tab PO DAILY 03/02/16 [History] metFORMIN HCl [Metformin HCl] 750 mg PO BID 03/02/16 [History] Pregabalin [Lyrica] 100 mg PO DAILY 09/24/18 [History] Linagliptin [Tradjenta] 5 mg PO DAILY 01/01/19 [History] [place] [employer]-3/DHA/Epa/Fish Oil [Fish Oil 1,000 mg Softgel] 1 each PO DAILY 01/01/19 [History] Simvastatin [Zocor] 40 mg PO DAILY 01/01/19 [History] Albuterol Sulfate 5 mg IH Q4HR #30 solution 12/13/19 [Rx] predniSONE [Prednisone] 40 mg PO DAILY 5 Days #15 tablet 12/13/19 [Rx] Pantoprazole Sodium [Protonix] 40 mg PO DAILY #30 tablet. 03/03/20 [Rx] Past Medical History - Past Health History Medical/Surgical History: Denies Medical/Surgical History HEENT History: Reports: Impaired Vision Cardiovascular History: Reports: High Cholesterol, Hypertension Respiratory History: Reports: None Gastrointestinal History: Reports: None Genitourinary History: Reports: None Musculoskeletal History: Reports: Arthritis Neurological History: Reports: Seizure Psychiatric History: Reports: Anxiety Endocrine/Metabolic History: Reports: Diabetes, Type II Insulin Pump Model and Panel Beater: None Hematologic History: Reports: None Immunologic History: Reports: None Oncologic (Cancer) History: Reports: None Dermatologic History: Reports: None - Infectious Disease History Infectious Disease History: Reports: None - Past Surgical History Head Surgeries/Procedures: Reports: None HEENT Surgical History: Reports: Naso-Sinus Surgery, Retinal, Visual Cardiovascular Surgical History: Reports: None Respiratory Surgical History: Reports: None GI Surgical History: Reports: None Male Surgical History: Reports: None Endocrine Surgical History: Reports: None Neurological Surgical History: Reports: None Musculoskeletal Surgical History: Reports: None Dermatological Surgical History: Reports: None Social & Family History - Family History Family Medical History: No Pertinent Family History - Caffeine Use Caffeine Use: Reports: Soda, Tea ED ROS GENERAL - Review of Systems Review Of Systems: Comprehensive ROS is negative, except as noted in HPI. ED EXAM, GENERAL - Physical Exam Exam: See Below Free Text/Narrative:: My physical exam is in the HPI #1 Interpretation EKG Interpretation Comments: EKG done 03/03/2020 at 4:16 AM sinus rhythm heart rate 91 an axis of 171 a CO of 179 a QT of 455. Normal QRS. Except for rightward axis. Late transition to R wave in fact no R wave dominance by V6. ST and T are normal. This is compared to 12/13/2019 and there is no change. Impression no acute injury Course - Vital Signs Text/Narrative:: Patient felt much better with the therapy. Discharged in satisfactory cond ition. Last Recorded V/S: Last Vital Signs Temp 36.3 C 03/03/20 04:31 Pulse 94 03/03/20 04:31 Resp 18 03/03/20 04:31 BP 152/83 H 03/03/20 04:31 Pulse Ox 97 03/03/20 04:31 - Orders/Labs/Meds Orders: Active Orders 24 hr Category Date Time Status EKG Documentation Completion [RC] AM Care 03/03/20 04:39 Active Sodium Chloride 0.9% [Saline Flush] Med 03/03/20 04:39 Active 10 ml FLUSH ASDIRECTED PRN Sodium Chloride 0.9% [Saline Flush] Med 03/03/20 04:39 Active 2.5 ml FLUSH ASDIRECTED PRN Saline Lock Insert [OM.PC] Stat Oth 03/03/20 04:40 Ordered Medication Orders Sodium Chloride (Saline Flush) 10 ml FLUSH ASDIRECTED PRN PRN Reason: Keep Vein Open Last Admin: 03/03/20 04:52 Dose: 10 ml Documented by: [email or web address] Sodium Chloride (Saline Flush) 2.5 ml FLUSH ASDIRECTED PRN PRN Reason: Keep Vein Open Last Admin: 03/03/20 04:52 Dose: 2.5 ml Documented by: [email or web address] Labs: Laboratory Tests 03/03/20 03/03/20 Range/Units 04:20 04:20 WBC 5.62 (4.0-11.0) K/uL RBC 4.86 (4.50-5.90) M/uL Hgb 15.0 (13.0-17.0) g/dL Hct 45.5 (38.0-50.0) % MCV 93.6 (80.0-98.0) fL MCH 30.9 (27.0-32.0) pg MCHC 33.0 (31.0-37.0) g/dL RDW Std Deviation 49.2 (28.0-62.0) fl RDW Coeff of Lety 14 (11.0-15.0) % Plt Count 161 (150-400) K/uL MPV 10.70 (7.40-12.00) fL Neut % (Auto) 65.4 (48.0-80.0) % Lymph % (Auto) 19.6 (16.0-40.0) % Granite % (Auto) 11.9 (0.0-15.0) % Eos % (Auto) 2.7 (0.0-7.0) % Baso % (Auto) 0.4 (0.0-1.5) % Neut # (Auto) 3.7 (1.4-5.7) K/uL Lymph # (Auto) 1.1 (0.6-2.4) K/uL Granite # (Auto) 0.7 (0.0-0.8) K/uL Eos # (Auto) 0.2 (0.0-0.7) K/uL Baso # (Auto) 0.0 (0.0-0.1) K/uL Nucleated RBC % 0.0 /100WBC Nucleated RBCs # 0 K/uL Sodium 140 (136-148) mmol/L Potassium 4.3 (3.5-5.1) mmol/L Chloride 102 (98-107) mmol/L Carbon Dioxide 28.7 (21.0-32.0) mmol/L BUN 22 H (7.0-18.0) mg/dL Creatinine 1.8 H (0.8-1.3) mg/dL Est Cr Clr Drug Dosing 49.00 mL/min Estimated GFR (MDRD) 39.7 ml/min Glucose 204 H (74-106) mg/dL Calcium 9.0 (8.5-10.1) mg/dL Total Bilirubin 0.3 (0.2-1.0) mg/dL AST 23 (15-37) IU/L ALT 33 (14-63) IU/L Alkaline Phosphatase 88 (46-116) U/L Troponin I < 0.050 (0.000-0.056) ng/mL Total Protein 7.6 (6.4-8.2) g/dL Albumin 3.5 (3.4-5.0) g/dL Globulin 4.1 H (2.6-4.0) g/dL Albumin/Globulin Ratio 0.9 (0.9-1.6) Lipase 110 (73-393) U/L Meds: Medications Generic Name Dose Route Start Last Admin Trade Name Freq PRN Reason Stop Dose Admin Sodium Chloride 10 ml 03/03/20 04:39 03/03/20 04:52 Saline Flush FLUSH 10 ml ASDIRECTED PRN Administration Keep Vein Open Sodium Chloride 2.5 ml 03/03/20 04:39 03/03/20 04:52 Saline Flush FLUSH 2.5 ml ASDIRECTED PRN Administration Keep Vein Open Discontinued Medications Generic Name Dose Route Start Last Admin Trade Name Freq PRN Reason Stop Dose Admin Al Hydroxide/Mg Hydroxide 15 0 ml 03/03/20 04:39 03/03/20 04:50 ml/ Lidocaine HCl 5 ml PO 03/03/20 04:40 1 each ONETIME ONE Administration Pantoprazole Sodium 40 mg/ 10 mls @ 300 mls/hr 03/03/20 04:39 03/03/20 04:50 Sodium Chloride IV 03/03/20 04:40 300 mls/hr NOW ONE Administration Pantoprazole Sodium 40 mg 03/03/20 05:15 Protonix PO 03/03/20 05:16 STAT STA Departure - Departure Time of Disposition: 05:20 Disposition: Home, Self-Care 01 Condition: Good Clinical Impression: Gastritis - Discharge Information Prescriptions: Pantoprazole Sodium [Protonix] 40 mg PO DAILY #30 tablet. Instructions: Gastritis, Adult, [id number] Referrals: PCP,None [Primary Care Provider] - Forms: ED Department Discharge Additional Instructions: [facility] - Primary Care [address] [place] [id number] [facility] [address] [place] [id number] The following information is given to patients seen in the emergency department who are being discharged to home. This information is to outline your options for follow-up care. We provide all patients seen in our emergency department with a follow-up referral. The need for follow-up, as well as the timing and circumstances, are variable depending upon the specifics of your emergency department visit. If you don't have a primary care physician on staff, we will provide you with a referral. We always advise you to contact your personal physician following an emergency department visit to inform them of the circumstance of the visit and for follow-up with them and/or the need for any referrals to a consulting specialist. The emergency department will also refer you to a specialist when appropriate. This referral assures that you have the opportunity for follow-up care with a specialist. All of these measure are taken in an effort to provide you with optimal care, which includes your follow-up. Under all circumstances we always encourage you to contact your private physician who remains a resource for coordinating your care. When calling for follow-up care, please make the office aware that this follow-up is from your recent emergency room visit. If for any reason you are refused follow-up, please contact the [facility] Emergency Department at and asked to speak to the emergency department charge nurse. Sepsis Event Note (ED) - Focused Exam Vital Signs: Vital Signs Temp Pulse Resp BP Pulse Ox 03/03/20 04:31 36.3 C 94 18 152/83 H 97 - My Orders Last 24 Hours: My Active Orders 03/03/20 04:39 EKG Documentation Completion [RC] AM Sodium Chloride 0.9% [Saline Flush] 10 ml FLUSH ASDIRECTED PRN Sodium Chloride 0.9% [Saline Flush] 2.5 ml FLUSH ASDIRECTED PRN 03/03/20 04:40 Saline Lock Insert [OM.PC] Stat - Assessment/Plan Last 24 Hours: My Active Orders 03/03/20 04:39 EKG Documentation Completion [RC] AM Sodium Chloride 0.9% [Saline Flush] 10 ml FLUSH ASDIRECTED PRN Sodium Chloride 0.9% [Saline Flush] 2.5 ml FLUSH ASDIRECTED PRN 03/03/20 04:40 Saline Lock Insert [OM.PC] Stat
[2020-03-03] MEDS ORDERED: Pantoprazole 40 MG in Sodium Chloride 0.9% 10 ML IV ONE (04:39)
[2020-03-03] MEDS ORDERED: Alum Hydrox/Mag Hydrox/Simeth 15 ML, Lidocaine 2% 5 ML PO ONE ×2 (04:39)
[2020-03-03] MEDS ORDERED: Sodium Chloride 0.9% 2.5 ML Syringe FLUSH PRN (04:39)
[2020-03-03] MEDS ORDERED: Sodium Chloride 0.9% 10 ML Syringe FLUSH PRN (04:39)
[2020-03-03 04:59] LABS: BLOOD UREA NITROGEN,BUN 22 mg/dL (7.0-18.0); CARBON DIOXIDE,CO2 28.7 mmol/L (21.0-32.0); CHLORIDE,CL 102 mmol/L (98-107); GLUCOSE RANDOM 204 mg/dL (74-106); LIPASE 110 U/L (73-393); POTASSIUM,K 4.3 mmol/L (3.5-5.1); SODIUM,NA 140 mmol/L (136-148)
[2020-03-03] MEDS ORDERED: Pantoprazole 40 MG Tab.CR PO STA (05:15)
[2020-03-03 05:27] VITALS: BP 112/76; PULSE 89
== END 2020-03-03 05:33 | disposition home or self-care (01) ==
LOC: MW.ED 04:15
DX: K29.70 Gastritis, unspecified, without bleeding (principal); I10 Essential (primary) hypertension; E78.00 Pure hypercholesterolemia, unspecified; E11.9 Type 2 diabetes mellitus without complications; Z79.4 Long term (current) use of insulin; Z79.899 Other long term (current) drug therapy
CPT/HCPCS: 36415; 80053; 83690; 84484; 85025; 93005; 96374; 99284; A9270; C9113; 93010; 99283

== ENCOUNTER 2020-07-29 15:12 | Emergency (ER) | payer MEDICARE, MEDICAID ==
--- NOTE | 2020-07-29 15:19 | EDM.PDOC ---
ED HPI GENERAL MEDICAL PROBLEM - General Stated Complaint: pain in rt leg from falling Time Seen by Provider: 07/29/20 15:13 Source of Information: Reports: Patient History Limitations: Reports: No Limitations - History of Present Illness INITIAL COMMENTS - FREE TEXT/NARRATIVE: HISTORY AND PHYSICAL: History of present illness: Patient is a 55-year-old male who presents emergency room today with concern of right knee/ankle injury that occurred approximately 1 hour prior to the emergency room. Patient states that he was at his mom's house and was helping her clear the driveway of snow. Patient states that he walked into the wet grass and his left leg slipped. Patient states he landed directly on his right knee and twisted his leg and states that he did not completely fall to the ground and caught himself and did not hit his head or lose consciousness. Patient states he was able to walk on his knee immediately following the incident but over the course of the last hour has had worsening pain of his outer right knee that radiates down into his right outer ankle. Patient denies any other associated symptoms or concerns. Patient denies fever, chills, chest pain, shortness of breath, or cough. Denies headache, neck stiff ness, change in vision, syncope, or near syncope. Denies nausea, vomiting, abdominal pain, diarrhea, constipation, or dysuria. Has not noted any blood in urine or stool. Patient has been eating and drinking appropriately. Review of systems: As per history of present illness and below otherwise all systems reviewed and negative. Past medical history: As per history of present illness and as reviewed below otherwise noncontributory. Surgical history: As per history of present illness and as reviewed below otherwise noncontributory. Social history: See social history for further information Family history: As per history of present illness and as reviewed below otherwise noncontributory. Physical exam: General: Patient is alert, oriented, and in no acute distress. Patient sitting comfortably on exam table. Vitals stable and reviewed by me. HEENT: Atraumatic, normocephalic, pupils equal and reactive bilaterally, negative for conjunctival pallor or scleral icterus, mucous membranes moist, TMs normal bilaterally, throat clear, neck supple, nontender, trachea midline. No drooling or trismus noted. No meningeal signs. No hot potato voice noted. Lungs: Clear to auscultation, breath sounds equal bilaterally, chest nontender. Heart: S1S2, regular rate and rhythm without overt murmur Abdomen: Soft, nondistended, nontender. Negative for masses or hepatosplenomegaly. Negative for costovertebral tenderness. Pelvis: Stable nontender. Genitourinary: Deferred. Rectal: Deferred. Skin: Intact, warm, dry. No lesions or rashes noted. Extremities: Bilateral lower extremity non pitting edema. Exam of LE limited due to non-pitting bilateral edema. No obvious deformity of the complete right lower extremity. Patient does have limited range of motion of the right ankle and knee due to pain. Patient does have pain with palpation of the lateral knee and lateral malleolus without signs of effusion. No erythema, ecchymosis, or edema noted of the right lower extremity. Patient has full range of motion of the right hip and digits of the right lower extremity without difficulty but limited ROM of the right knee/ankle due to pain. Dorsalis pedis and posterior tibial pulses are grossly intact of the right lower extremity with capillary refill less than 2 seconds. Compartments are soft of the right lower extremity. Otherwise, atraumatic, negative for cords or calf pain. Neurovascular unremarkable. Neuro: Awake, alert, oriented. Cranial nerves II through XII unremarkable. Cerebellum unremarkable. Motor and sensory unremarkable throughout. Exam nonfocal. Notes: Signs and symptoms that would prompt return to the ED thoroughly discussed with patient. Discussed importance for follow-up with an orthopedic provider. Voices understanding and is agreeable to plan of care. Denies any further questions or concerns at this time. Diagnostics: Knee/tib/fib/foot XR RT Therapeutics: Crutches, Posterior long splint Prescription: None Impression: Distal fibula fracture, right Right knee injury Plan: 1. Rest, ice, elevate the affected extremity but keep splint on until orthopedic evaluation. You can apply ice 15 minutes on, 15 minutes off. To be non weight bearing until orthopedic evaluation. 2. Tylenol and/or Ibuprofen as directed for pain management or discomfort. 3. Follow up with the Orthopedic provider as discussed. Return to the ED as needed and as discussed. Definitive disposition and diagnosis as appropriate pending reevaluation and review of above. - Related Data Allergies Allergy/AdvReac Type Severity Reaction Status Date / Time No Known Allergies Allergy Verified 03/03/20 04:31 Home Meds: Home Meds Divalproex Sodium [Depakote] 1,000 mg PO DAILY 05/11/15 [History] Insulin Glarg,Human.Rec.Analog [LantUS] 80 unit SUBCUT DAILY 05/18/15 [History] Insulin Lispro [Humalog] 40 unit SQ ASDIRECTED PRN 05/18/15 [History] Lisinopril 1 tab PO DAILY 03/02/16 [History] metFORMIN HCl [Metformin HCl] 750 mg PO BID 03/02/16 [History] Pregabalin [Lyrica] 100 mg PO DAILY 09/24/18 [History] Linagliptin [Tradjenta] 5 mg PO DAILY 01/01/19 [History] [place]-3/DHA/Epa/Fish Oil [Fish Oil 1,000 mg Softgel] 1 each PO DAILY 01/01/19 [History] Simvastatin [Zocor] 40 mg PO DAILY 01/01/19 [History] Albuterol Sulfate 5 mg IH Q4HR #30 solution 12/13/19 [Rx] predniSONE [Prednisone] 40 mg PO DAILY 5 Days #15 tablet 12/13/19 [Rx] Pantoprazole Sodium [Protonix] 40 mg PO DAILY #30 tablet. 03/03/20 [Rx] Past Medical History - Past Health History Medical/Surgical History: Denies Medical/Surgical History HEENT History: Reports: Impaired Vision Cardiovascular History: Reports: High Cholesterol, Hypertension Respiratory History: Reports: None Gastrointestinal History: Reports: None Genitourinary History: Reports: None Musculoskeletal History: Reports: Arthritis Neurological History: Reports: Seizure Psychiatric History: Reports: Anxiety Endocrine/Metabolic History: Reports: Diabetes, Type II Insulin Pump Model and Reliability Manager: None Hematologic History: Reports: None Immunologic History: Reports: None Oncologic (Cancer) History: Reports: None Dermatologic History: Reports: None - Infectious Disease History Infectious Disease History: Reports: None - Past Surgical History Head Surgeries/Procedures: Reports: None HEENT Surgical History: Reports: Naso-Sinus Surgery, Retinal, Visual Cardiovascular Surgical History: Reports: None Respiratory Surgical History: Reports: None GI Surgical History: Reports: None Male Surgical History: Reports: None Endocrine Surgical History: Reports: None Neurological Surgical History: Reports: None Musculoskeletal Surgical History: Reports: None Dermatological Surgical History: Reports: None Social & Family History - Family History Family Medical History: No Pertinent Family History - Caffeine Use Caffeine Use: Reports: Soda, Tea ED ROS GENERAL - Review of Systems Review Of Systems: Comprehensive ROS is negative, except as noted in HPI. ED EXAM, GENERAL - Physical Exam Exam: See Below (see dictation) Course - Vital Signs Last Recorded V/S: Last Vital Signs Temp 98.2 F 07/29/20 15:35 Pulse 94 07/29/20 18:48 Resp 18 07/29/20 18:48 BP 141/86 H 07/29/20 18:48 Pulse Ox 98 07/29/20 18:48 - Orders/Labs/Meds Orders: Active Orders 24 hr Category Date Time Status DME for Discharge [COMM] Stat Oth 07/29/20 17:37 Ordered Departure - Departure Time of Disposition: 17:42 Disposition: Home, Self-Care 01 Clinical Impression: Strain of right knee Qualifiers: Encounter type: initial encounter Qualified Code(s): S86.911A - Strain of unspecified muscle(s) and tendon(s) at lower leg level, right leg, initial encounter Fracture of distal fibula Qualifiers: Encounter type: initial encounter Fracture type: closed Fracture morphology: unspecified fracture morphology Laterality: right Qualified Code(s): S82.831A - Other fracture of upper and lower end of right fibula, initial encounter for closed fracture - Discharge Information Instructions: Crutch Use, Adult, [id number], Cast or Splint Care, Adult, [id number], Tibial and Fibular Fractures Referrals: Ioana Godinez MD [Primary Care Provider] - Forms: ED Department Discharge Additional Instructions: The following information is given to patients seen in the emergency department who are being discharged to home. This information is to outline your options for follow-up care. We provide all patients seen in our emergency department with a follow-up referral. The need for follow-up, as well as the timing and circumstances, are variable depending upon the specifics of your emergency department visit. If you don't have a primary care physician on staff, we will provide you with a referral. We always advise you to contact your personal physician following an emergency department visit to inform them of the circumstance of the visit and for follow-up with them and/or the need for any referrals to a consulting specialist. The emergency department will also refer you to a specialist when appropriate. This referral assures that you have the opportunity for follow-up care with a specialist. All of these measure are taken in an effort to provide you with optimal care, which includes your follow-up. Under all circumstances we always encourage you to contact your private physician who remains a resource for coordinating your care. When calling for follow-up care, please make the office aware that this follow-up is from your recent emergency room visit. If for any reason you are refused follow-up, please contact the [facility] Emergency Department at and asked to speak to the emergency department charge nurse. [facility] [address] [place] [address] [facility] [address] [place] [address] [facility] - [facility]opedic Clinic Professional Building [address] [place] [address] [address] Brewster, Orthopedist [facility] [address] [place] [address] Dr Ward - Dr Moody - Dr Hernandez [facility] at [facility] [address] [place] [address] [facility] [address] [place] [address] 1. Rest, ice, elevate the affected extremity but keep splint on until orthopedic evaluation. You can apply ice 15 minutes on, 15 minutes off. To be non weight bearing until orthopedic evaluation. 2. Tylenol and/or Ibuprofen as directed for pain management or discomfort. 3. Follow up with the Orthopedic provider as discussed. Return to the ED as needed and as discussed. - My Orders Last 24 Hours: My Active Orders 07/29/20 17:37 DME for Discharge [COMM] Stat - Assessment/Plan Last 24 Hours: My Active Orders 07/29/20 17:37 DME for Discharge [COMM] Stat
--- NOTE | 2020-07-29 16:45 | CR ---
Indication: Pain, fall. Technique: Right knee 3 views. Comparison: Right knee radiographs 06/23/2018. Findings: No acute fracture or dislocation. The patella is normally aligned. Old fracture deformity of the proximal fibula. Moderate to marked narrowing of the lateral compartment. Tricompartmental spurring. Large knee joint effusion. Soft tissues are unremarkable. Impression: 1. No acute fracture. 2. Large knee joint effusion. 3. Degenerative changes of the knee with moderate to marked lateral compartment narrowing. Dictated by Dayanna Gibson MD @ Jul 29 2020 4:41PM Signed by Dr. Dayanna Gibson @ Jul 29 2020 4:45PM
--- NOTE | 2020-07-29 18:07 | CR ---
Indication: Injury Technique: Two views of the right foot Comparison: None Findings/Impression: 1. Questionable nondisplaced fracture through the base of the 5th proximal phalanx. Correlate for point tenderness. 2. Otherwise no fracture or dislocation demonstrated in the foot. 3. Partially visualized distal fibular fracture. Dictated by Indu Zapata MD @ Jul 29 2020 6:05PM Signed by Dr. Indu Zapata @ Jul 29 2020 6:05PM
--- NOTE | 2020-07-29 18:09 | CR ---
Indication: Injury Technique: Two views of the right leg Comparison: None Findings/Impression: 1. Obliquely oriented acute mildly displaced fracture involving the distal fibular shaft and metaphysis. Follow-up dedicated ankle radiographs are recommended. 2. Subcutaneous edema of the lateral distal leg. 3. No evidence of tibial fracture. Dictated by Indu Zapata MD @ Jul 29 2020 6:05PM Signed by Dr. Indu Zapata @ Jul 29 2020 6:07PM
[2020-07-29 18:49] VITALS: BP 141/86; PULSE 94
== END 2020-07-29 18:59 | disposition home or self-care (01) ==
LOC: MW.ED 15:12
DX: S82.831A Other fracture of upper and lower end of right fibula, initial encounter for closed fracture (principal); S86.911A Strain of unspecified muscle(s) and tendon(s) at lower leg level, right leg, initial encounter; I10 Essential (primary) hypertension; E78.00 Pure hypercholesterolemia, unspecified; E11.9 Type 2 diabetes mellitus without complications; Z79.4 Long term (current) use of insulin; Z79.899 Other long term (current) drug therapy; X50.1XXA Overexertion from prolonged static or awkward postures, initial encounter; Y93.01 Activity, walking, marching and hiking
CPT/HCPCS: 29505; 73562-26-RT; 73562-RT; 73590-26-RT; 73590-RT; 73620-26-RT; 73620-RT; 99283; 99283-25

== ENCOUNTER 2020-10-29 12:46 | Emergency (ER) | payer MEDICARE, MEDICAID ==
--- NOTE | 2020-10-29 13:35 | EDM.PDOC ---
ED HPI GENERAL MEDICAL PROBLEM - General Chief Complaint: Lower Extremity Injury/Pain Stated Complaint: R LEG CAST Time Seen by Provider: 10/29/20 12:51 - History of Present Illness INITIAL COMMENTS - FREE TEXT/NARRATIVE: History of present illness: [] Patient has difficulty remembering dates and events. He seems somewhat intellectually limited. He had a fracture of his right tib fib and July 29. He was put in a splint and then went to [place] where he saw Dr. Gordy Gagnon. Dr. Correia has a phone #[phone]. Dr. Gagnon put a cast on the patient and after it had to have ample time to heal put the patient in a boot. Apparently on the second of this month Dr. Correia felt like he needed to put another cast on. We talked at that office and they verified that they had done so. They expected to remove it on the . The patient says he has irritation and discomfort in the plantar surface of the foot. He is diabetic. Review of systems: As per history of present illness and below otherwise all systems reviewed and negative. Past medical history: As per history of present illness and as reviewed below otherwise noncontributory. Surgical history: As per history of present illness and as reviewed below otherwise noncontributory. Social history: No reported history of drug or alcohol abuse. Family history: As per history of present illness and as reviewed below otherwise noncontributory. Physical exam: Constitutional - well developed, well-nourished and in no acute distress HEENT - normocephalic, no evidence of trauma - external nose and mouth normal - no mass in neck and no JVD - mucosae moist EYES - full EOM, PERRL, no icterus - no evidence of inflammation, injection, or drainage Respiratory - no respiratory distress, equal bilateral expansion Musculoskeletal Short leg cast on the right lower extremity. Neurovascular structures intact in the toes. No gross deformity of long bones or joints - no tenderness, swelling or edema Neurologic - Alert and oriented times four -somewhat slow to respond to questions at times and has difficulty remembering dates. CN II-XII grossly intact - motor sensory and coordination symmetrically normal Psychiatric - appropriate mood and affect with normal thought content Hematologic - No petechiae or purpura - mucosa appropriate color and sclera not pale - normal nail bed color and refill Integument - no rash or evidence of trauma - normal turgor Diagnostics: [] Therapeutics: [] Impression: [] Plan: [] Definitive disposition and diagnosis as appropriate pending reevaluation and review of above. Right Lower Leg Pain Score (Numeric/FACES): 0 - Related Data Allergies Allergy/AdvReac Type Severity Reaction Status Date / Time No Known Allergies Allergy Verified 10/29/20 13:14 Home Meds: Home Meds Divalproex Sodium [Depakote] 1,000 mg PO DAILY 05/11/15 [History] Insulin Glarg,Human.Rec.Analog [LantUS] 80 unit SUBCUT DAILY 05/18/15 [History] Insulin Lispro [Humalog] 40 unit SQ ASDIRECTED PRN 05/18/15 [History] Lisinopril 1 tab PO DAILY 03/02/16 [History] metFORMIN HCl [Metformin HCl] 750 mg PO BID 03/02/16 [History] Pregabalin [Lyrica] 100 mg PO DAILY 09/24/18 [History] Linagliptin [Tradjenta] 5 mg PO DAILY 01/01/19 [History] [place]-3/DHA/Epa/Fish Oil [Fish Oil 1,000 mg Softgel] 1 each PO DAILY 01/01/19 [History] Simvastatin [Zocor] 40 mg PO DAILY 01/01/19 [History] Albuterol Sulfate 5 mg IH Q4HR #30 solution 12/13/19 [Rx] predniSONE [Prednisone] 40 mg PO DAILY 5 Days #15 tablet 12/13/19 [Rx] Pantoprazole Sodium [Protonix] 40 mg PO DAILY #30 tablet. 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 Hematologic History: Reports: None Immunologic History: Reports: None Oncologic (Cancer) History: Reports: None Dermatologic History: Reports: None - Infectious Disease History Infectious Disease History: Reports: None - Past Surgical History Head Surgeries/Procedures: Reports: None HEENT Surgical History: Reports: Naso-Sinus Surgery, Retinal, Visual Cardiovascular Surgical History: Reports: None Respiratory Surgical History: Reports: None GI Surgical History: Reports: None Male Surgical History: Reports: None Endocrine Surgical History: Reports: None Neurological Surgical History: Reports: None Musculoskeletal Surgical History: Reports: None Other Musculoskeletal Surgeries/Procedures:: Knee ligaments Dermatological Surgical History: Reports: None Social & Family History - Family History Family Medical History: No Pertinent Family History - Tobacco Use Tobacco Use Status *Q: Former Tobacco User Used Tobacco, but Quit: No - Caffeine Use Caffeine Use: Reports: Soda - Recreational Drug Use Recreational Drug Use: No Review of Systems - Review of Systems Review Of Systems: Comprehensive ROS is negative, except as noted in HPI. ED EXAM, GENERAL - Physical Exam Exam: See Below Free Text/Narrative:: My physical exam is in the HPI Course - Vital Signs Last Recorded V/S: Last Vital Signs Temp 36.6 C 10/29/20 14:52 Pulse 78 10/29/20 14:52 Resp 20 10/29/20 14:52 BP 124/71 10/29/20 14:52 Pulse Ox 97 10/29/20 14:52 - Orders/Labs/Meds Orders: Active Orders 24 hr Category Date Time Status Tibia Fibula Rt [CR] Stat Exams 10/29/20 14:38 Taken Departure - Departure Time of Disposition: 15:03 Disposition: Home, Self-Care 01 Condition: Good Clinical Impression: Closed fracture of distal end of tibia, Fractured lateral malleolus - Discharge Information Instructions: Nondisplaced Fibular Ankle Fracture Treated With Immobilization, Adult, Tibial Fracture, Adult, [id number] Referrals: Ioana Godinez MD [Primary Care Provider] - Gordy Ward MD [Ordering Only Provider] - Forms: ED Department Discharge Additional Instructions: You can call the orthopedic clinic and see if they can work you and give you a second opinion. Otherwise follow-up with Dr. Correia to see if the cast will work or if he needs surgery. [facility] - Orthopedic Clinic Professional Building [address] [place] [address], [address] [place] [address] The following information is given to patients seen in the emergency department who are being discharged to home. This information is to outline your options for follow-up care. We provide all patients seen in our emergency department with a follow-up referral. The need for follow-up, as well as the timing and circumstances, are variable depending upon the specifics of your emergency department visit. If you don't have a primary care physician on staff, we will provide you with a referral. We always advise you to contact your personal physician following an emergency department visit to inform them of the circumstance of the visit and for follow-up with them and/or the need for any referrals to a consulting specialist. The emergency department will also refer you to a specialist when appropriate. This referral assures that you have the opportunity for follow-up care with a specialist. All of these measure are taken in an effort to provide you with optimal care, which includes your follow-up. Under all circumstances we always encourage you to contact your private physician who remains a resource for coordinating your care. When calling for follow-up care, please make the office aware that this follow-up is from your recent emergency room visit. If for any reason you are refused follow-up, please contact the [facility] Emergency Department at and asked to speak to the emergency department charge nurse. Sepsis Event Note (ED) - Evaluation Sepsis Screening Result: No Definite Risk - Focused Exam Vital Signs: Vital Signs Temp Pulse Resp BP Pulse Ox 10/29/20 14:52 36.6 C 78 20 124/71 97 10/29/20 14:12 36.7 C 88 20 125/74 98 10/29/20 13:17 36.4 C 91 18 118/78 96 - My Orders Last 24 Hours: My Active Orders 10/29/20 14:38 Tibia Fibula Rt [CR] Stat - Assessment/Plan Last 24 Hours: My Active Orders 10/29/20 14:38 Tibia Fibula Rt [CR] Stat
[2020-10-29 14:52] VITALS: PULSE 78
[2020-10-29 15:51] VITALS: BP 127/81
--- NOTE | 2020-10-29 15:52 | CR ---
INDICATION: Possible nonunion. COMPARISON: 07/29/2020. TECHNIQUE: AP and lateral views of the right tibia and fibula were obtained. FINDINGS: During the interval, a fiberglass cast has been placed. The oblique fracture of the distal fibula is seen to have prominent periosteal new bone formation, with the more inferior portion of the fracture line not clearly evident on today`s study, suggesting developing osseous union. The rest of the fracture line is indistinct, consistent with healing. There continues to be approximately 25 percent posterior displacement of the distal fracture fragment. There is a new, transverse, nondisplaced fracture of the distal tibia which is also seen to be healing, with periosteal new bone formation having developed along the medial aspect of the fracture. The fracture line anteriorly is not evident, consistent with developing osseous union. The fracture line is also indistinct, consistent with healing. There is appropriate mild sclerosis in the bone adjacent to both the distal tibial and distal fibular fractures. There is no sign of additional fracture, dislocation, or joint effusion. The soft tissues are normal in appearance without sign of radio-opaque foreign body. No degenerative disease is seen in the visualized portions of the knee and ankle. IMPRESSION: Healing oblique fracture of the distal fibular shaft with apparent developing osseous union in the distal portion of the fracture. Healing transverse nondisplaced fracture of the distal tibial shaft with absence of the fracture line anteriorly consistent with developing osseous union. Dictated by Brian Red MD @ 10/29/2020 3:52:[address] Brian Red @ Oct 29 2020 3:52PM
== END 2020-10-29 15:20 | disposition home or self-care (01) ==
LOC: MW.ED 12:46
DX: S82.301D Unspecified fracture of lower end of right tibia, subsequent encounter for closed fracture with routine healing (principal); S82.61XD Displaced fracture of lateral malleolus of right fibula, subsequent encounter for closed fracture with routine healing; X58.XXXD Exposure to other specified factors, subsequent encounter
CPT/HCPCS: 73590-26-RT; 73590-RT; 99283-25

== ENCOUNTER 2020-11-20 09:36 | Emergency (ER) | payer MEDICARE, MEDICAID ==
[2020-11-20] MEDS ORDERED: Sodium Chloride 0.9% 10 ML Syringe FLUSH PRN (09:42)
[2020-11-20] MEDS ORDERED: Sodium Chloride 0.9% 500 ML IV ONE (09:42)
[2020-11-20] MEDS ORDERED: Sodium Chloride 0.9% 2.5 ML Syringe FLUSH PRN (09:42)
[2020-11-20] MEDS ORDERED: Ondansetron 4 MG/2 ML SDV IVPUSH ONE (09:42)
--- NOTE | 2020-11-20 09:42 | EDM.PDOC ---
ED HPI GENERAL MEDICAL PROBLEM - General Chief Complaint: Diabetic Complaint Stated Complaint: DIABETIC ISSUES Time Seen by Provider: 11/20/20 09:39 Source of Information: Reports: Patient, EMS History Limitations: Reports: No Limitations - History of Present Illness INITIAL COMMENTS - FREE TEXT/NARRATIVE: 55-year-old male past medical history insulin-dependent diabetes, obesity, asthma, gastritis, anxiety presents for feeling unwell. Patient states that this morning his blood sugar was low in the 60s. He was feeling dizzy when he was ambulating. He was also feeling nauseated. He had some orange juice and cereal and is feeling better. He denies any chest pain or shortness of breath. Denies any abdominal pain. Denies fevers, cough, recent illness. Denies dysuria. - Related Data Allergies Allergy/AdvReac Type Severity Reaction Status Date / Time No Known Allergies Allergy Verified 10/29/20 13:14 Home Meds: Home Meds Divalproex Sodium [Depakote] 1,000 mg PO DAILY 05/11/15 [History] Insulin Glarg,Human.Rec.Analog [LantUS] 80 unit SUBCUT DAILY 05/18/15 [History] Insulin Lispro [Humalog] 40 unit SQ ASDIRECTED PRN 05/18/15 [History] Lisinopril 1 tab PO DAILY 03/02/16 [History] metFORMIN HCl [Metformin HCl] 750 mg PO BID 03/02/16 [History] Pregabalin [Lyrica] 100 mg PO DAILY 09/24/18 [History] Linagliptin [Tradjenta] 5 mg PO DAILY 01/01/19 [History] [place]-3/DHA/Epa/Fish Oil [Fish Oil 1,000 mg Softgel] 1 each PO DAILY 01/01/19 [History] Simvastatin [Zocor] 40 mg PO DAILY 01/01/19 [History] Albuterol Sulfate 5 mg IH Q4HR #30 solution 12/13/19 [Rx] predniSONE [Prednisone] 40 mg PO DAILY 5 Days #15 tablet 12/13/19 [Rx] Pantoprazole Sodium [Protonix] 40 mg PO DAILY #30 tablet 03/03/20 [Rx] cephALEXin [Keflex] 500 mg PO Q8H 7 Days #21 cap 11/20/20 [Rx] Past Medical History - Past Health History Medical/Surgical History: Denies Medical/Surgical History HEENT History: Reports: Impaired Vision Cardiovascular History: Reports: High Cholesterol, Hypertension Respiratory History: Reports: COPD Gastrointestinal History: Reports: None Genitourinary History: Reports: None Musculoskeletal History: Reports: Arthritis Neurological History: Reports: None, Seizure Psychiatric History: Reports: Anxiety Endocrine/Metabolic History: Reports: Diabetes, Type II Insulin Pump Model and Supervisor Tellers: None Hematologic History: Reports: None Immunologic History: Reports: None Oncologic (Cancer) History: Reports: None Dermatologic History: Reports: None - Infectious Disease History Infectious Disease History: Reports: None - Past Surgical History Head Surgeries/Procedures: Reports: None HEENT Surgical History: Reports: Naso-Sinus Surgery, Retinal, Visual Cardiovascular Surgical History: Reports: None Respiratory Surgical History: Reports: None GI Surgical History: Reports: None Male Surgical History: Reports: None Endocrine Surgical History: Reports: None Neurological Surgical History: Reports: None Musculoskeletal Surgical History: Reports: None Other Musculoskeletal Surgeries/Procedures:: Knee ligaments Dermatological Surgical History: Reports: None Social & Family History - Family History Family Medical History: No Pertinent Family History - Caffeine Use Caffeine Use: Reports: Soda ED ROS GENERAL - Review of Systems Review Of Systems: Comprehensive ROS is negative, except as noted in HPI. ED EXAM GENERAL NO PERIP PULSE - Physical Exam Exam: See Below Exam Limited By: No Limitations General Appearance: Alert, WD/WN, No Apparent Distress Ears: Hearing Grossly Normal Throat/Mouth: Normal Voice, No Airway Compromise Head: Atraumatic, Normocephalic Neck: Normal Inspection Respiratory/Chest: No Respiratory Distress, Lungs Clear, Normal Breath Sounds, No Accessory Muscle Use Cardiovascular: Normal Peripheral Pulses, Regular Rate, Rhythm GI/Abdominal: Soft, Non-Tender, Other (obese) Extremities: Other (RLE swelling 2/2 recent injury with cast removed recently; ambulates with walker or cane) Neurological: Alert, Normal Cognition Psychiatric: Normal Affect, Normal Mood Skin Exam: Warm, Dry, Intact, Normal Color #1 Interpretation EKG Date: 11/20/20 Time: 10:14 Rhythm: NSR Rate (Beats/Min): 88 [place]: Normal P-Wave: Present QRS: Normal ST-T: Normal QT: Normal RI/PQ Interval: 179 EKG Interpretation Comments: normal EKG Course - Vital Signs Last Recorded V/S: Last Vital Signs Temp 95.5 F L 11/20/20 09:39 Pulse 102 H 11/20/20 09:39 Resp 18 11/20/20 09:39 BP 125/75 11/20/20 09:39 Pulse Ox 98 11/20/20 09:39 - Orders/Labs/Meds Orders: Active Orders 24 hr Category Date Time Status EKG Documentation Completion [RC] STAT Care 11/20/20 09:42 Active UA W/MELVA RFLX IF INDICATED [URIN] Stat Lab 11/20/20 09:43 Ordered Sodium Chloride 0.9% [Saline Flush] Med 11/20/20 09:42 Active 10 ml FLUSH ASDIRECTED PRN Sodium Chloride 0.9% [Saline Flush] Med 11/20/20 09:42 Active 2.5 ml FLUSH ASDIRECTED PRN Saline Lock Insert [OM.PC] Stat Oth 11/20/20 09:42 Ordered Medication Orders Sodium Chloride (Sodium Chloride 0.9% 10 Ml Syringe) 10 ml FLUSH ASDIRECTED PRN PRN Reason: Keep Vein Open Last Admin: 11/20/20 09:47 Dose: 10 ml Documented by: NIMESH Sodium Chloride (Sodium Chloride 0.9% 2.5 Ml Syringe) 2.5 ml FLUSH ASDIRECTED PRN PRN Reason: Keep Vein Open Last Admin: 11/20/20 09:47 Dose: 2.5 ml Documented by: NIMESH Labs: Laboratory Tests 11/20/20 11/20/20 Range/Units 09:45 09:45 WBC 6.66 (4.0-11.0) K/uL RBC 4.95 (4.50-5.90) M/uL Hgb 14.8 (13.0-17.0) g/dL Hct 44.6 (38.0-50.0) % MCV 90.1 (80.0-98.0) fL MCH 29.9 (27.0-32.0) pg MCHC 33.2 (31.0-37.0) g/dL RDW Std Deviation 49.5 (28.0-62.0) fl RDW Coeff of Lety 15 (11.0-15.0) % Plt Count 190 (150-400) K/uL MPV 10.60 (7.40-12.00) fL Neut % (Auto) 74.5 (48.0-80.0) % Lymph % (Auto) 13.7 L (16.0-40.0) % Crisp % (Auto) 9.5 (0.0-15.0) % Eos % (Auto) 2.0 (0.0-7.0) % Baso % (Auto) 0.3 (0.0-1.5) % Neut # (Auto) 5.0 (1.4-5.7) K/uL Lymph # (Auto) 0.9 (0.6-2.4) K/uL Crisp # (Auto) 0.6 (0.0-0.8) K/uL Eos # (Auto) 0.1 (0.0-0.7) K/uL Baso # (Auto) 0.0 (0.0-0.1) K/uL Nucleated RBC % 0.0 /100WBC Nucleated RBCs # 0 K/uL Sodium 141 (136-148) mmol/L Potassium 4.0 (3.5-5.1) mmol/L Chloride 106 (98-107) mmol/L Carbon Dioxide 25.3 (21.0-32.0) mmol/L BUN 22 H (7.0-18.0) mg/dL Creatinine 1.6 H (0.8-1.3) mg/dL Est Cr Clr Drug Dosing 57.93 mL/min Estimated GFR (MDRD) 45.3 ml/min Glucose 105 (74-106) mg/dL Calcium 9.0 (8.5-10.1) mg/dL Magnesium 1.8 (1.8-2.4) mg/dL Total Bilirubin 0.3 (0.2-1.0) mg/dL AST 28 (15-37) IU/L ALT 24 (14-63) IU/L Alkaline Phosphatase 149 H (46-116) U/L Troponin I < 0.050 (0.000-0.056) ng/mL Total Protein 7.8 (6.4-8.2) g/dL Albumin 3.8 (3.4-5.0) g/dL Globulin 4.0 (2.6-4.0) g/dL Albumin/Globulin Ratio 0.9 (0.9-1.6) Lipase 117 (73-393) U/L TSH, Ultra Sensitive 2.14 (0.36-3.74) uIU/mL Meds: Medications Generic Name Dose Route Start Last Admin Trade Name Freq PRN Reason Stop Dose Admin Sodium Chloride 10 ml 11/20/20 09:42 11/20/20 09:47 Sodium Chloride 0.9% 10 Ml Syringe FLUSH 10 ml ASDIRECTED PRN Administration Keep Vein Open Sodium Chloride 2.5 ml 11/20/20 09:42 11/20/20 09:47 Sodium Chloride 0.9% 2.5 Ml Syringe FLUSH 2.5 ml ASDIRECTED PRN Administration Keep Vein Open Discontinued Medications Generic Name Dose Route Start Last Admin Trade Name Freq PRN Reason Stop Dose Admin Sodium Chloride 500 mls @ 999 mls/hr 11/20/20 09:42 11/20/20 09:47 Normal Saline IV 11/20/20 10:12 999 mls/hr .Bolus ONE Administration Ondansetron HCl 4 mg 11/20/20 09:42 11/20/20 09:47 Ondansetron 4 Mg/2 Ml Sdv IVPUSH 11/20/20 09:43 4 mg ONETIME ONE Administration - Re-Assessments/Exams Free Text/Narrative Re-Assessment/Exam: 11/20/20 09:42 We will get basic labs. 11/20/20 10:46 Patient's labs are all unremarkable. We did feed the patient. We will get an ultrasound of the right lower extremity to rule out DVT. 11/20/20 12:14 Ultrasound is unremarkable. Patient symptoms are likely secondary to recent cast placement however will treat with Keflex for possible early cellulitis. Departure - Departure Time of Disposition: 12:14 Disposition: Home, Self-Care 01 Condition: Good Clinical Impression: Cellulitis Qualifiers: Site of cellulitis: extremity Site of cellulitis of extremity: lower extremity Laterality: left Qualified Code(s): L03.116 - Cellulitis of left lower limb - Discharge Information Prescriptions: cephALEXin [Keflex] 500 mg PO Q8H 7 Days #21 cap Instructions: Cellulitis, Adult, [id number], COVID-19 Vaccine Information Referrals: PCP,None [Primary Care Provider] - Forms: ED Department Discharge Additional Instructions: Your labs all look good. You may have an early skin infection of the right leg versus swelling due to your recent splint/cast. Will start you on antibiotics so we don't miss an infection. No evidence of blood clot. The best way to protect yourself and others from COVID-19 is to take one of the three safe and effective vaccines that have been proven to substantially reduce risk of both infection and severe illness. [facility] is currently offering COVID vaccinations for anyone age 18 and older. To schedule an appointment call [phone]. Or, to be contacted by our clinics about scheduling your vaccine online, please go to [email or web address] The following information is given to patients seen in the emergency department who are being discharged to home. This information is to outline your options for follow-up care. We provide all patients seen in our emergency department with a follow-up referral. The need for follow-up, as well as the timing and circumstances, are variable depending upon the specifics of your emergency department visit. If you don't have a primary care physician on staff, we will provide you with a referral. We always advise you to contact your personal physician following an emergency department visit to inform them of the circumstance of the visit and for follow-up with them and/or the need for any referrals to a consulting specialist. The emergency department will also refer you to a specialist when appropriate. This referral assures that you have the opportunity for follow-up care with a specialist. All of these measure are taken in an effort to provide you with optimal care, which includes your follow-up. Under all circumstances we always encourage you to contact your private physician who remains a resource for coordinating your care. When calling for follow-up care, please make the office aware that this follow-up is from your recent emergency room visit. If for any reason you are refused follow-up, please contact the [facility] Emergency Department at and asked to speak to the emergency department charge nurse. Please follow up with your primary care physician. If you do not have a primary care physician, see below: [facility] [address] [place] [id number] [facility] [address] [place] [address] Sepsis Event Note (ED) - Focused Exam Vital Signs: Vital Signs Temp Pulse Resp BP Pulse Ox 11/20/20 09:39 95.5 F L 102 H 18 125/75 98 - My Orders Last 24 Hours: My Active Orders 11/20/20 09:42 EKG Documentation Completion [RC] STAT Sodium Chloride 0.9% [Saline Flush] 10 ml FLUSH ASDIRECTED PRN Sodium Chloride 0.9% [Saline Flush] 2.5 ml FLUSH ASDIRECTED PRN Saline Lock Insert [OM.PC] Stat 11/20/20 09:43 UA W/MELVA RFLX IF INDICATED [URIN] Stat - Assessment/Plan Last 24 Hours: My Active Orders 11/20/20 09:42 EKG Documentation Completion [RC] STAT Sodium Chloride 0.9% [Saline Flush] 10 ml FLUSH ASDIRECTED PRN Sodium Chloride 0.9% [Saline Flush] 2.5 ml FLUSH ASDIRECTED PRN Saline Lock Insert [OM.PC] Stat 11/20/20 09:43 UA W/MELVA RFLX IF INDICATED [URIN] Stat
--- NOTE | 2020-11-20 10:41 | CR ---
INDICATION: Generalized weakness TECHNIQUE: Chest 1 views COMPARISON: December 13, 2019 FINDINGS: Cardiovascular and mediastinum: Heart size and vasculature are normal in caliber and appearance. Lungs and pleural spaces: Lungs are clear. No sign of infiltrate or mass. No sign of pleural effusion. No pneumothorax. Bones and soft tissues: No significant findings. IMPRESSION: No acute findings and no significant changes from the prior exam. Dictated by Driss Granados MD @ 11/20/2020 10:40:[address] Driss Granados @ Nov 20 2020 10:40AM
[2020-11-20 10:43] LABS: BLOOD UREA NITROGEN,BUN 22 mg/dL (7.0-18.0); CARBON DIOXIDE,CO2 25.3 mmol/L (21.0-32.0); CHLORIDE,CL 106 mmol/L (98-107); GLUCOSE RANDOM 105 mg/dL (74-106); LIPASE 117 U/L (73-393); SODIUM,NA 141 mmol/L (136-148)
--- NOTE | 2020-11-20 12:01 | US ---
INDICATION: Right lower extremity swelling TECHNIQUE: Ultrasound venous duplex lower right extremity. Compression venous exam was performed using urbina-scale, color Doppler, and spectral Doppler imaging. COMPARISON: None FINDINGS: Visualized portions of the right common femoral, profunda, femoral, popliteal, and posterior tibial veins are compressible and patent. IMPRESSION: No evidence of right lower extremity DVT. Dictated by Christopher Jordan MD @ 11/20/2020 11:59:06 AM Dictated by: Christopher Jordan MD @ 11/20/2020 11:59:13 (Electronically Signed)
[2020-11-20 13:39] VITALS: BP 115/73; PULSE 82
== END 2020-11-20 12:50 | disposition home or self-care (01) ==
LOC: MW.ED 09:36
DX: L03.116 Cellulitis of left lower limb (principal); J44.9 Chronic obstructive pulmonary disease, unspecified; E78.00 Pure hypercholesterolemia, unspecified; I10 Essential (primary) hypertension; E11.9 Type 2 diabetes mellitus without complications; Z79.4 Long term (current) use of insulin; Z79.899 Other long term (current) drug therapy
CPT/HCPCS: 36415; 71045; 80053; 83690; 83735; 84443; 84484; 85025; 93005; 93971; 96374; 99285; J2405; J7030

== ENCOUNTER 2020-12-02 09:49 | Emergency (ER) | payer MEDICARE, MEDICAID ==
--- NOTE | 2020-12-02 10:37 | EDM.PDOC ---
ED HPI GENERAL MEDICAL PROBLEM - General Chief Complaint: General Stated Complaint: LOW BLOOD SUGAR Time Seen by Provider: 12/02/20 10:24 Source of Information: Reports: Patient History Limitations: Reports: No Limitations - History of Present Illness INITIAL COMMENTS - FREE TEXT/NARRATIVE: HISTORY AND PHYSICAL: History of present illness: Patient is a 55-year-old male who presents to the emergency room with concerns of hypoglycemia and generalized abdominal pain. Patient is a type II diabetic and states he will take Lantus 80 mg every night and use Humalog 40 units as he feels he needs. States he has never used a sliding scale. This morning his blood sugars were in the 70s and he proceeded taking his Humalog 40 units. Blood sugars have dropped down into the 40s. He has been drinking orange juice and Pedialyte to help bring it back up. States he has had some generalized abdominal pain this morning without nausea or vomiting. Patient denies any fever, chills, headache, change in vision, syncope or near syncope. Denies any chest pain, back pain, shortness of breath or cough. Denies any abdominal pain, nausea, vomiting, diarrhea, constipation or dysuria. Has not noted any blood in urine or stool. Patient has been eating and drinking appropriately. Review of systems: As per history of present illness and below otherwise all systems reviewed and negative. Past medical history: As per history of present illness and as reviewed below otherwise noncontributory. Surgical history: As per history of present illness and as reviewed below otherwise nonco ntributory. Social history: See social history for further information Family history: As per history of present illness and as reviewed below otherwise noncontributory. Physical exam: General: Well developed and well nourished. Alert and orientated x 3. Nontoxic in appearance and in no acute distress. Vital signs are stable and have been reviewed by me. Nursing notes were reviewed. HEENT: Atraumatic, normocephalic, pupils equal and reactive bilaterally, negative for conjunctival pallor or scleral icterus, mucous membranes moist, trachea midline. No drooling or trismus noted. No meningeal signs. No hot potato voice noted. Lungs: Clear to auscultation bilaterally. No wheezes, rales, or rhonchi. Chest nontender. Normal work of breathing, no accessory muscles used. Heart: S1S2, regular rate and rhythm without overt murmur, gallops, or rubs. No JVD. No peripheral edema Abdomen: Soft, nondistended, nontender. Normoactive bowel sounds. Negative for masses or costovertebral tenderness. Skin: Intact, warm, dry. No lesions or rashes noted. Hematologic: No petechiae or purpra. Mucosa appropriate color and normal nail bed color and refill. Extremities: Atraumatic, moves all extremities per self without difficulty or deficits, negative for cords or calf pain. Neurovascular unremarkable. Neuro: Awake, alert, oriented. Cranial nerves II through XII unremarkable. Cerebellum unremarkable. Motor and sensory unremarkable throughout. Exam nonfocal. Psychiatric: Mood and affect are appropriate. Normal thought process. Answering questions appropriately. Notes: *This patient was seen and evaluated during the 2019 SARS-CoV-2 novel coronavirus pandemic period. Community viral transmission is ongoing at time of this encounter and the emergency department is operating under pandemic response procedures. Patient is a 55-year-old male who presents to the emergency room with complaints of low blood sugar after administering insulin. Patient states he woke up with low blood sugar but felt he needed to give his insulin because it was directed to do so. Cognitively I feel the patient is unaware of how insulin works and when to use it. He has never heard of a sliding scale nor does he recall when he is supposed to hold his insulin. After giving his insulin he continue to monitor his blood sugars and drink orange juice and Pedialyte to help get his blood sugar back up. Decided to come to the emergency room as he was running in the 40s to 70s. He states he has some generalized abdominal pain although is nonspecific. He does have 2 spots on his abdomen in which he states he administers his insulin, they do not appear infected although they do appear callused and sore. We will get basic lab work and talk with the piano instructor about further education. Current blood sugar is 106. 1050: Isabel, the piano instructor is here to talk with the patient and give some insulin counseling/diabetic counseling. The piano instructor did get a hold of Israel Ashraf, person who monitors and fills his medications. They will switch his insulin to 15 units with 3 meals versus the 40 units as needed. Patient was also given an appointment with Ioana Godinez at [facility] on December 05 at 1 PM. I have talked with the patient about today's findings, in addition to providing specific details for plan of care. Reassessment at the time of disposition demonstrates that the patient is in no acute distress. The patient is stable for discharge, counseling was provided and we discussed in great detail signs and symptoms that would prompt them to return to the Emergency Department. Medication, follow up and supportive care measures were reviewed and discussed. Voices understanding and is agreeable to plan of care. Denies any further questions or concerns at this time. Diagnostics: CBC, CMP, UA, lipase blood glucose Therapeutics: Consult piano instructor Prescription: None Impression: Hypoglycemia Inappropriate medication administration Plan: 1. You were evaluated today on an emergent basis. Your blood sugar today was too low because of the amount of insulin you gave yourself 2. You can alternate Tylenol and ibuprofen as needed for pain and fever management. 3. You have an appointment with Ioana Godinez at [facility] on December 05 at 1 PM. PLEASE ATTEND THIS APPOINTMENT! 4. Change your regular insulin to 15 units with your 3 meals of the day. 5. If your symptoms should worsen, new symptoms develop or any of the signs and symptoms we discussed should arise please return to the emergency room or call 911 (if needed). Definitive disposition and diagnosis as appropriate pending reevaluation and review of above. abdomen Pain Score (Numeric/FACES): 6 - Related Data Allergies Allergy/AdvReac Type Severity Reaction Status Date / Time No Known Allergies Allergy Verified 12/02/20 10:15 Home Meds: Home Meds Divalproex Sodium [Depakote] 1,000 mg PO DAILY 05/11/15 [History] Insulin Glarg,Human.Rec.Analog [LantUS] 80 unit SUBCUT DAILY 05/18/15 [History] Insulin Lispro [Humalog] 40 unit SQ ASDIRECTED PRN 05/18/15 [History] Lisinopril 1 tab PO DAILY 03/02/16 [History] metFORMIN HCl [Metformin HCl] 750 mg PO BID 03/02/16 [History] Pregabalin [Lyrica] 100 mg PO DAILY 09/24/18 [History] Linagliptin [Tradjenta] 5 mg PO DAILY 01/01/19 [History] [place]-3/DHA/Epa/Fish Oil [Fish Oil 1,000 mg Softgel] 1 each PO DAILY 01/01/19 [History] Simvastatin [Zocor] 40 mg PO DAILY 01/01/19 [History] Albuterol Sulfate 5 mg IH Q4HR #30 solution 12/13/19 [Rx] predniSONE [Prednisone] 40 mg PO DAILY 5 Days #15 tablet 12/13/19 [Rx] Pantoprazole Sodium [Protonix] 40 mg PO DAILY #30 tablet. 03/03/20 [Rx] cephALEXin [Keflex] 500 mg PO Q8H 7 Days #21 cap 11/20/20 [Rx] Past Medical History - Past Health History Medical/Surgical History: Denies Medical/Surgical History HEENT History: Reports: Impaired Vision Cardiovascular History: Reports: High Cholesterol, Hypertension Respiratory History: Reports: COPD Gastrointestinal History: Reports: None Genitourinary History: Reports: None Musculoskeletal History: Reports: Arthritis Neurological History: Reports: None, Seizure Psychiatric History: Reports: Anxiety Endocrine/Metabolic History: Reports: Diabetes, Type II Insulin Pump Model and Supervisor Powdered Sugar: None Hematologic History: Reports: None Immunologic History: Reports: None Oncologic (Cancer) History: Reports: None Dermatologic History: Reports: None - Infectious Disease History Infectious Disease History: Reports: None - Past Surgical History Head Surgeries/Procedures: Reports: None HEENT Surgical History: Reports: Naso-Sinus Surgery, Retinal, Visual Cardiovascular Surgical History: Reports: None Respiratory Surgical History: Reports: None GI Surgical History: Reports: None Male Surgical History: Reports: None Endocrine Surgical History: Reports: None Neurological Surgical History: Reports: None Musculoskeletal Surgical History: Reports: None Other Musculoskeletal Surgeries/Procedures:: Knee ligaments Dermatological Surgical History: Reports: None Social & Family History - Family History Family Medical History: No Pertinent Family History - Tobacco Use Tobacco Use Status *Q: Never Tobacco User Second Hand Smoke Exposure: Yes - Caffeine Use Caffeine Use: Reports: Soda - Recreational Drug Use Recreational Drug Use: No ED ROS GENERAL - Review of Systems Review Of Systems: Comprehensive ROS is negative, except as noted in HPI. ED EXAM, GENERAL - Physical Exam Exam: See Below (See dictation) Course - Vital Signs Last Recorded V/S: Last Vital Signs Temp 95.8 F L 12/02/20 10:10 Pulse 108 H 12/02/20 10:10 Resp 18 12/02/20 10:10 BP 130/83 12/02/20 10:10 Pulse Ox 99 12/02/20 10:10 - Orders/Labs/Meds Orders: Active Orders 24 hr Category Date Time Status Blood Glucose Check, Bedside [RC] ONETIME Care 12/02/20 10:27 Active Blood Glucose Check, Bedside [RC] ONETIME Care 12/02/20 12:06 Ordered Communication Order [RC] STAT Care 12/02/20 11:45 Active Consult to Water Conservationist [Consult to Diabetic Nurse Cons 12/02/20 10:40 Active Specialist] [CONS] Stat UA RFX MELVA AND CULT IF INDIC [URIN] Stat Lab 12/02/20 10:27 Ordered Labs: Laboratory Tests 12/02/20 12/02/20 12/02/20 Range/Units 10:20 10:30 10:30 WBC 7.06 (4.0-11.0) K/uL RBC 4.82 (4.50-5.90) M/uL Hgb 14.4 (13.0-17.0) g/dL Hct 43.4 (38.0-50.0) % MCV 90.0 (80.0-98.0) fL MCH 29.9 (27.0-32.0) pg MCHC 33.2 (31.0-37.0) g/dL RDW Std Deviation 50.6 (28.0-62.0) fl RDW Coeff of Lety 15 (11.0-15.0) % Plt Count 188 (150-400) K/uL MPV 11.00 (7.40-12.00) fL Neut % (Auto) 71.8 (48.0-80.0) % Lymph % (Auto) 12.9 L (16.0-40.0) % [place] % (Auto) 12.9 (0.0-15.0) % Eos % (Auto) 2.1 (0.0-7.0) % Baso % (Auto) 0.3 (0.0-1.5) % Neut # (Auto) 5.1 (1.4-5.7) K/uL Lymph # (Auto) 0.9 (0.6-2.4) K/uL [place] # (Auto) 0.9 H (0.0-0.8) K/uL Eos # (Auto) 0.2 (0.0-0.7) K/uL Baso # (Auto) 0.0 (0.0-0.1) K/uL Nucleated RBC % 0.0 /100WBC Nucleated RBCs # 0 K/uL Sodium 139 (136-148) mmol/L Potassium 4.4 (3.5-5.1) mmol/L Chloride 103 (98-107) mmol/L Carbon Dioxide 28.3 (21.0-32.0) mmol/L BUN 23 H (7.0-18.0) mg/dL Creatinine 1.6 H (0.8-1.3) mg/dL Est Cr Clr Drug Dosing 54.50 mL/min Estimated GFR (MDRD) 45.3 ml/min Glucose 87 (74-106) mg/dL POC Glucose 106 H (70-99) mg/dL Calcium 8.7 (8.5-10.1) mg/dL Total Bilirubin 0.3 (0.2-1.0) mg/dL AST 27 (15-37) IU/L ALT 39 (14-63) IU/L Alkaline Phosphatase 133 H (46-116) U/L Total Protein 7.4 (6.4-8.2) g/dL Albumin 3.6 (3.4-5.0) g/dL Globulin 3.8 (2.6-4.0) g/dL Albumin/Globulin Ratio 0.9 (0.9-1.6) Lipase 117 (73-393) U/L Departure - Departure Time of Disposition: 11:53 Disposition: Home, Self-Care 01 Clinical Impression: Hypoglycemia, Medication dosage form inappropriate - Discharge Information Instructions: Hypoglycemia, [id number] Referrals: Ioana Godinez MD [Primary Care Provider] - Forms: ED Department Discharge Additional Instructions: The following information is given to patients seen in the emergency department who are being discharged to home. This information is to outline your options for follow-up care. We provide all patients seen in our emergency department with a follow-up referral. The need for follow-up, as well as the timing and circumstances, are variable depending upon the specifics of your emergency department visit. If you don't have a primary care physician on staff, we will provide you with a referral. We always advise you to contact your personal physician following an emergency department visit to inform them of the circumstance of the visit and for follow-up with them and/or the need for any referrals to a consulting specialist. The emergency department will also refer you to a specialist when appropriate. This referral assures that you have the opportunity for follow-up care with a specialist. All of these measure are taken in an effort to provide you with optimal care, which includes your follow-up. Under all circumstances we always encourage you to contact your private peggy louisian who remains a resource for coordinating your care. When calling for follow-up care, please make the office aware that this follow-up is from your recent emergency room visit. If for any reason you are refused follow-up, please contact the [facility] at and asked to speak to the emergency department charge nurse. [facility] [address] [place] [id number] [address] Thank you for choosing the [facility] emergency department in [place] for your medical needs today. It was a pleasure caring for you. Today you were seen in the emergency department for low blood sugar. 1. You were evaluated today on an emergent basis. Your blood sugar today was too low because of the amount of insulin you gave yourself 2. You can alternate Tylenol and ibuprofen as needed for pain and fever management. 3. You have an appointment with Ioana Godinez at [facility] on December 05 at 1 PM. PLEASE ATTEND THIS APPOINTMENT! 4. Change your regular insulin to 15 units with your 3 meals of the day. 5. If your symptoms should worsen, new symptoms develop or any of the signs and symptoms we discussed should arise please return to the emergency room or call 911 (if needed). Sepsis Event Note (ED) - Evaluation Sepsis Screening Result: Possible Sepsis Risk - Focused Exam Vital Signs: Vital Signs Temp Pulse Resp BP Pulse Ox 12/02/20 10:10 95.8 F L 108 H 18 130/83 99 - My Orders Last 24 Hours: My Active Orders 12/02/20 10:27 Blood Glucose Check, Bedside [RC] ONETIME UA RFX MELVA AND CULT IF INDIC [URIN] Stat 12/02/20 10:40 Consult to Water Conservationist [Consult to Diabetic Nurse Specialist] [CONS] Stat 12/02/20 11:45 Communication Order [RC] STAT 12/02/20 12:06 Blood Glucose Check, Bedside [RC] ONETIME - Assessment/Plan Last 24 Hours: My Active Orders 12/02/20 10:27 Blood Glucose Check, Bedside [RC] ONETIME UA RFX MELVA AND CULT IF INDIC [URIN] Stat 12/02/20 10:40 Consult to Water Conservationist [Consult to Diabetic Nurse Specialist] [CONS] Stat 12/02/20 11:45 Communication Order [RC] STAT 12/02/20 12:06 Blood Glucose Check, Bedside [RC] ONETIME
[2020-12-02 11:23] LABS: CARBON DIOXIDE,CO2 28.3 mmol/L (21.0-32.0); POTASSIUM,K 4.4 mmol/L (3.5-5.1)
[2020-12-02 12:25] VITALS: BP 122/78; PULSE 87
== END 2020-12-02 12:35 | disposition home or self-care (01) ==
LOC: MW.ED 09:49
DX: E11.649 Type 2 diabetes mellitus with hypoglycemia without coma (principal); T38.3X5A Adverse effect of insulin and oral hypoglycemic [antidiabetic] drugs, initial encounter; E78.00 Pure hypercholesterolemia, unspecified; I10 Essential (primary) hypertension; J44.9 Chronic obstructive pulmonary disease, unspecified; Z79.4 Long term (current) use of insulin; Z79.899 Other long term (current) drug therapy
CPT/HCPCS: 80053; 82947; 83690; 85025; 99284

== ENCOUNTER 2020-12-15 08:57 | Emergency (ER) | payer MEDICARE, MEDICAID ==
[2020-12-15] MEDS ORDERED: Magnesium Citrate Solution 296 ML Bottle PO ONE (10:13)
[2020-12-15] MEDS ORDERED: Ketorolac 15 MG/ML SDV IM ONE (10:14)
[2020-12-15] MEDS ORDERED: Alum Hydrox/Mag Hydrox/Simeth 15 ML, Lidocaine 2% 5 ML PO ONE ×2 (10:15)
[2020-12-15] MEDS ORDERED: Ketorolac 15 MG/ML SDV IVPUSH ONE (10:45)
--- NOTE | 2020-12-15 11:41 | EDM.PDOC ---
ED HPI GENERAL MEDICAL PROBLEM - General Chief Complaint: Abdominal Pain Stated Complaint: STOMACHACHE HEADACHE Time Seen by Provider: 12/15/20 09:17 - History of Present Illness INITIAL COMMENTS - FREE TEXT/NARRATIVE: CHIEF COMPLAINT(S): Headache and stomachache HISTORY OF PRESENT ILLNESS: This is a 55-year-old man with a past medical history of diabetes mellitus who comes to the emergency department with headache and stomach ache. The patient states that he called his mom to tell her that he is in the emergency department. He states that he is experiencing a headache which is similar to the past. He describes it as all over, pounding with associated mild light sensitivity. He denies any nausea, vomiting, trouble walking, speaking or swallowing. He denies any double vision or loss of vision. He denies any injury or loss of consciousness. Denies any fevers, chills or neck stiffness. In addition to the headache he states he is having a stomach ache all over and he thinks he is constipated. He denies any testicular pain, penile discharge. Otherwise he denies all other symptoms REVIEW OF SYSTEMS: Constitutional: Denies fever, chills. Eyes: Denies eye pain Ears, Nose, Mouth, & Throat: Denies earache Cardiovascular: Denies chest pain Respiratory: Denies shortness of breath Gastrointestinal: Positive for abdominal pain and constipation. Denies nausea, vomiting, diarrhea hematochezia, hematemesis, bilious emesis, melena Genitourinary: Denies hematuria Skin:Denies a rash MSK: Denies joint pain Neurological: Positive for headache. Denies blurred vision, loss of vision, double vision, numbness, tingling, weakness psychiatric: Denies depression PAST MEDICAL HISTORY: As per history of present illness and as reviewed below otherwise noncontributory. SURGICAL HISTORY: As per history of present illness and as reviewed below otherwise noncontributory. SOCIAL HISTORY: As per history of present illness and as reviewed below otherwise noncontributory. FAMILY HISTORY: As per history of present illness and as reviewed below otherwise noncontributory. EXAMINATION OF ORGAN SYSTEMS/BODY AREAS: Constitutional: Blood pressure was 110/72, heart rate 89, respiratory rate 18 with an O2 saturation 98% on room air. Temperature 35.4 temporally General: Young man who is in no acute distress Psychiatric: Appropriate mood and affect. Eyes: No scleral icterus or conjunctival erythema ENMT: Moist mucous membranes. No pharyngeal erythema Cardiovascular: Regular, rate, and rhythm. No gallops, murmurs, or rubs. Bilateral upper extremity pulses symmetric and intact. No peripheral edema. No JVD. Respiratory: Lungs clear to auscultation bilaterally. No wheezes, rales, or rhonchi. Gastrointestinal: Soft, non-tender, non-distended. Normoactive bowel sounds Genitourinary: No suprapubic tenderness Musculoskeletal: Normal range of motion. Skin: No lesions or abrasions. Neurological: AOx4. CN grossly intact. Stregth 5/5 in bilateral upper and lower extremity. Sensation is intact bilaterally in upper and lower extremity. Gait appears normal. Finger to nose, heel to rossi, rapid alternating movements intact. MEDICAL DECISION MAKING AND COURSE IN THE ED WITH INTERPRETATION/REVIEW OF DIAGNOSTIC STUDIES: This is a 55-year-old man with a past medical history of diabetes mellitus who comes to the emergency department with abdominal pain and simple headache which is similar to his past who has normal vital signs, normal abdominal examination and normal neurological examination. At this time we did obtain a [id number] glucose to evaluate for possibility of hyperglycemia and DKA. 24 glucose was 75. At this time given the patient is complaining of constipation we will provide the patient with magnesium citrate and evaluate for bowel movement. We will treat the patient with Toradol and and a GI cocktail for the headache and abdominal pain. We will reevaluate. On reevaluation the patient's vitals continue to remain stable. He was worried that he may have a bowel movement when he is here while taking the magnesium citrate. He states the last time an enema seemed to work. Therefore at this time I did discuss with him that we could send him home with Fleet enema and he is to return to the emergency department if he has any worsening symptoms or is not able to have a bowel movement. He was amenable discharge at this time and had no further questions. DISPOSITION: The patient was discharged home in stable condition. The patient will follow up with primary care physician in 3 to 5 days CONDITION: Fair PROCEDURES: None FINAL IMPRESSION(S)/DIAGNOSES: 1. Acute abdominal pain likely secondary to constipation 2. Acute headache Josr Soto M.D. head/abd Pain Score (Numeric/FACES): 8 - Related Data Allergies Allergy/AdvReac Type Severity Reaction Status Date / Time No Known Allergies Allergy Verified 12/15/20 09:07 Home Meds: Home Meds Divalproex Sodium [Depakote] 1,000 mg PO DAILY 05/11/15 [History] Insulin Glarg,Human.Rec.Analog [LantUS] 80 unit SUBCUT DAILY 05/18/15 [History] Insulin Lispro [Humalog] 40 unit SQ ASDIRECTED PRN 05/18/15 [History] Lisinopril 1 tab PO DAILY 03/02/16 [History] metFORMIN HCl [Metformin HCl] 750 mg PO BID 03/02/16 [History] Pregabalin [Lyrica] 100 mg PO DAILY 09/24/18 [History] Linagliptin [Tradjenta] 5 mg PO DAILY 01/01/19 [History] [place]-3/DHA/Epa/Fish Oil [Fish Oil 1,000 mg Softgel] 1 each PO DAILY 01/01/19 [History] Simvastatin [Zocor] 40 mg PO DAILY 01/01/19 [History] Albuterol Sulfate 5 mg IH Q4HR #30 solution 12/13/19 [Rx] predniSONE [Prednisone] 40 mg PO DAILY 5 Days #15 tablet 12/13/19 [Rx] Pantoprazole Sodium [Protonix] 40 mg PO DAILY #30 tablet. 03/03/20 [Rx] Past Medical History - Past Health History Medical/Surgical History: Denies Medical/Surgical History HEENT History: Reports: Impaired Vision Cardiovascular History: Reports: High Cholesterol, Hypertension Respiratory History: Reports: COPD Gastrointestinal History: Reports: None Genitourinary History: Reports: None Musculoskeletal History: Reports: Arthritis Neurological History: Reports: None, Seizure Psychiatric History: Reports: Anxiety Endocrine/Metabolic History: Reports: Diabetes, Type II Insulin Pump Model and Equipment Services Associate: None Hematologic History: Reports: None Immunologic History: Reports: None Oncologic (Cancer) History: Reports: None Dermatologic History: Reports: None - Infectious Disease History Infectious Disease History: Reports: None - Past Surgical History Head Surgeries/Procedures: Reports: None HEENT Surgical History: Reports: Naso-Sinus Surgery, Retinal, Visual Cardiovascular Surgical History: Reports: None Respiratory Surgical History: Reports: None GI Surgical History: Reports: None Male Surgical History: Reports: None Endocrine Surgical History: Reports: None Neurological Surgical History: Reports: None Musculoskeletal Surgical History: Reports: None Other Musculoskeletal Surgeries/Procedures:: Knee ligaments Dermatological Surgical History: Reports: None Social & Family History - Family History Family Medical History: No Pertinent Family History - Tobacco Use Tobacco Use Status *Q: Never Tobacco User Second Hand Smoke Exposure: No - Caffeine Use Caffeine Use: Reports: None - Recreational Drug Use Recreational Drug Use: No ED ROS GENERAL - Review of Systems Review Of Systems: See Below ED EXAM, GENERAL - Physical Exam Exam: See Below Course - Vital Signs Last Recorded V/S: Last Vital Signs Temp 35.4 C L 12/15/20 09:09 Pulse 78 12/15/20 12:28 Resp 18 12/15/20 12:28 BP 120/80 12/15/20 12:28 Pulse Ox 98 12/15/20 12:28 - Orders/Labs/Meds Labs: Laboratory Tests 12/15/20 Range/Units 10:19 POC Glucose 75 (70-99) mg/dL Meds: Medications Discontinued Medications Generic Name Dose Route Start Last Admin Trade Name Casey PRN Reason Stop Dose Admin Al Hydroxide/Mg Hydroxide 15 0 ml 12/15/20 10:15 12/15/20 10:32 ml/ Lidocaine HCl 5 ml PO 12/15/20 10:16 20 each ONETIME ONE Administration Ketorolac Tromethamine 15 mg 12/15/20 10:14 12/15/20 12:18 Ketorolac 15 Mg/Ml Sdv IM 12/15/20 10:15 Not Given ONETIME ONE Ketorolac Tromethamine 15 mg 12/15/20 10:45 12/15/20 10:53 Ketorolac 15 Mg/Ml Sdv IVPUSH 12/15/20 10:46 15 mg ONETIME ONE Administration Magnesium Citrate 219 ml 12/15/20 10:13 12/15/20 10:33 Magnesium Citrate Solution 296 Ml Bottle PO 12/15/20 10:14 219 ml ONETIME ONE Administration Departure - Departure Time of Disposition: 11:39 Disposition: Home, Self-Care 01 Condition: Fair Clinical Impression: Sinus headache, Constipation, Abdominal discomfort - Discharge Information *PRESCRIPTION DRUG MONITORING PROGRAM REVIEWED*: No *COPY OF PRESCRIPTION DRUG MONITORING REPORT IN PATIENT MANPREET: No Instructions: Constipation, Adult, [id number], Abdominal Pain, Adult, [id number], Sinus Headache, [id number] Referrals: Ioana Godinez MD [Primary Care Provider] - Forms: ED Department Discharge Additional Instructions: You were evaluated today on an emergent basis. At this time I do believe your headache is likely secondary to a sinus headache given your congestion in your nose and your ears. I recommend you continue to use Flonase as prescribed. I would like you to use a Nell pot twice a day, use Zyrtec once a day, and purchase a humidifier for your room while sleeping. Would like to use Tylenol and Motrin for pain relief. Otherwise I would like you to follow-up with your primary care physician in 3 to 5 days. Please return to the emergency department for any new or worsening symptoms. In regards to your constipation I recommend that you continue with adequate fiber intake at home and to maintain hydration. I recommend you drink all of the Magnesium Citrate and use the Fleet enema at home. If you have any blood in your stool, vomiting or worsening pain without a bowel movement I would like you to return to the emergency department. [facility] [address] [place], [place] [id number] [place] [address] The patient is informed of any results of their evaluation and diagnostic workup and all questions are answered. They are given discharge instructions and return precautions. The patient is stable for discharge. The patient states they understand and agree with the plan and that they will return if their symptoms get worse or if they have any new concerns. The following information is given to patients seen in the emergency department who are being discharged to home. This information is to outline your options for follow-up care. We provide all patients seen in our emergency department with a follow-up referral. The need for follow-up, as well as the timing and circumstances, are variable depending upon the specifics of your emergency department visit. If you don't have a primary care physician on staff, we will provide you with a referral. We always advise you to contact your personal physician following an e mergency department visit to inform them of the circumstance of the visit and for follow-up with them and/or the need for any referrals to a consulting specialist. The emergency department will also refer you to a specialist when appropriate. This referral assures that you have the opportunity for follow-up care with a specialist. All of these measure are taken in an effort to provide you with op timal care, which includes your follow-up. Under all circumstances we always encourage you to contact your private physician who remains a resource for coordinating your care. When calling for follow-up care, please make the office aware that this follow-up is from your recent emergency room visit. If for any reason you are refused follow-up, please contact the [facility] Emergency Department at and asked to speak to the emergency department charge nurse. Sepsis Event Note (ED) - Evaluation Sepsis Screening Result: No Definite Risk
[2020-12-15 19:31] VITALS: BP 120/80; PULSE 78
== END 2020-12-15 12:29 | disposition home or self-care (01) ==
LOC: MW.ED 08:57
DX: R51.9 Headache, unspecified (principal); K59.00 Constipation, unspecified; E11.9 Type 2 diabetes mellitus without complications; E78.00 Pure hypercholesterolemia, unspecified; I10 Essential (primary) hypertension; J44.9 Chronic obstructive pulmonary disease, unspecified; Z79.899 Other long term (current) drug therapy
CPT/HCPCS: 82947; 96374; 99284; A9270; J1885; 99283

== ENCOUNTER 2020-12-19 00:23 | Emergency (ER) | payer MEDICARE, MEDICAID ==
[2020-12-19] MEDS ORDERED: Alum Hydrox/Mag Hydrox/Simeth 15 ML, Lidocaine 2% 5 ML PO ONE ×2 (00:37)
[2020-12-19] MEDS ORDERED: Sodium Chloride 0.9% 10 ML Syringe FLUSH PRN (00:37)
[2020-12-19] MEDS ORDERED: Sodium Chloride 0.9% 2.5 ML Syringe FLUSH PRN (00:37)
[2020-12-19] MEDS ORDERED: Metoclopramide 10 MG/2 ML SDV IVPUSH ONE (00:37)
--- NOTE | 2020-12-19 00:42 | EDM.PDOC ---
ED HPI GENERAL MEDICAL PROBLEM - General Chief Complaint: Abdominal Pain Stated Complaint: ABDOMINAL PAIN Time Seen by Provider: 12/19/20 00:26 - History of Present Illness INITIAL COMMENTS - FREE TEXT/NARRATIVE: 55-year-old male with a history of diabetes, gastroparesis, dyspepsia who is presenting with stomach upset and headache. Patient states that he was eating popcorn and developed a stomachache that is currently 6 out of 10. He has some mild nausea associated with this. He had a bowel movement approximately 90 minutes prior to arrival it was unremarkable for him. His stomach upset is associated with a mild onset generalized headache that he says has been going on since today. No fevers no neck pain or stiffness no chest pain or shortness of breath. Patient had a presentation for similar symptoms several days ago. At that time he was concerned he was constipated he was given a bottle of mag citrate. He says since then his stools have been somewhat loose. Headache is not 10 out of 10 was not sudden onset. Abdomen Pain Score (Numeric/FACES): 6 - Related Data Allergies Allergy/AdvReac Type Severity Reaction Status Date / Time No Known Allergies Allergy Verified 12/19/20 00:24 Home Meds: Home Meds Divalproex Sodium [Depakote] 1,000 mg PO DAILY 05/11/15 [History] Insulin Glarg,Human.Rec.Analog [LantUS] 80 unit SUBCUT DAILY 05/18/15 [History] Insulin Lispro [Humalog] 40 unit SQ ASDIRECTED PRN 05/18/15 [History] Lisinopril 1 tab PO DAILY 03/02/16 [History] metFORMIN HCl [Metformin HCl] 750 mg PO BID 03/02/16 [History] Pregabalin [Lyrica] 100 mg PO DAILY 09/24/18 [History] Linagliptin [Tradjenta] 5 mg PO DAILY 01/01/19 [History] [place]-3/DHA/Epa/Fish Oil [Fish Oil 1,000 mg Softgel] 1 each PO DAILY 01/01/19 [History] Simvastatin [Zocor] 40 mg PO DAILY 01/01/19 [History] Albuterol Sulfate 5 mg IH Q4HR #30 solution 12/13/19 [Rx] predniSONE [Prednisone] 40 mg PO DAILY 5 Days #15 tablet 12/13/19 [Rx] Pantoprazole Sodium [Protonix] 40 mg PO DAILY #30 tablet. 03/03/20 [Rx] Past Medical History - Past Health History Medical/Surgical History: Denies Medical/Surgical History HEENT History: Reports: Impaired Vision Cardiovascular History: Reports: High Cholesterol, Hypertension Respiratory History: Reports: COPD Gastrointestinal History: Reports: None Genitourinary History: Reports: None Musculoskeletal History: Reports: Arthritis Neurological History: Reports: None, Seizure Psychiatric History: Reports: Anxiety Endocrine/Metabolic History: Reports: Diabetes, Type II Insulin Pump Model and Soa Engineer: No Hematologic History: Reports: None Immunologic History: Reports: None Oncologic (Cancer) History: Reports: None Dermatologic History: Reports: None - Infectious Disease History Infectious Disease History: Reports: None - Past Surgical History Head Surgeries/Procedures: Reports: None HEENT Surgical History: Reports: Naso-Sinus Surgery, Retinal, Visual Cardiovascular Surgical History: Reports: None Respiratory Surgical History: Reports: None GI Surgical History: Reports: None Male Surgical History: Reports: None Endocrine Surgical History: Reports: None Neurological Surgical History: Reports: None Musculoskeletal Surgical History: Reports: None Other Musculoskeletal Surgeries/Procedures:: Knee ligaments Dermatological Surgical History: Reports: None Social & Family History - Family History Family Medical History: No Pertinent Family History - Caffeine Use Caffeine Use: Reports: None - Recreational Drug Use Recreational Drug Use: No ED ROS GENERAL - Review of Systems Review Of Systems: See Below Free Text/Narrative/Comment: General: No fever. Eyes: No vision problems. ENT: No sore throat. Neck: No neck stiffness. Respiratory: No shortness of breath. Cardiac: No chest pain. Gastrointestinal: Per HPI Urinary: No dysuria. Musculoskeletal: No myalgias/arthralgias. Neurologic: Per HPI ED EXAM, GENERAL - Physical Exam Exam: See Below Free Text/Narrative:: General Appearance: No acute distress, appears comfortable Skin: No rash HEENT: Normocephalic/atraumatic, sclera anicteric, mucous membranes moist Neck: Normal range of motion Chest and Lungs: Bilateral breath sounds, clear to auscultation Cardiovascular: Regular rate and rhythm, no murmur Abdomen: Soft, non-tender Back: Normal Musculoskeletal: No edema or tenderness Neurologic: Awake, alert, no obvious deficits, moving all extremities Psychiatric: Appropriate, cooperative Course - Vital Signs Last Recorded V/S: Last Vital Signs Temp 97.4 F 09/02/21 00:25 Pulse 78 12/19/20 02:25 Resp 18 12/19/20 02:25 BP 130/72 12/19/20 02:25 Pulse Ox 96 12/19/20 02:25 - Orders/Labs/Meds Orders: Active Orders 24 hr Category Date Time Status Lactated Ringers [Ringers, Lactated] 1,000 ml Med 12/19/20 01:15 Active IV ASDIRECTED Sodium Chloride 0.9% [Saline Flush] Med 12/19/20 00:37 Active 10 ml FLUSH ASDIRECTED PRN Sodium Chloride 0.9% [Saline Flush] Med 12/19/20 00:37 Active 2.5 ml FLUSH ASDIRECTED PRN Saline Lock Insert [OM.PC] Stat Oth 12/19/20 00:37 Ordered Medication Orders Lactated Ringer's (Ringers, Lactated) 1,000 mls @ 999 mls/hr IV ASDIRECTED MIC Last Admin: 12/19/20 01:33 Dose: 999 mls/hr Documented by: FLOYD Sodium Chloride (Sodium Chloride 0.9% 10 Ml Syringe) 10 ml FLUSH ASDIRECTED PRN PRN Reason: Keep Vein Open Sodium Chloride (Sodium Chloride 0.9% 2.5 Ml Syringe) 2.5 ml FLUSH ASDIRECTED PRN PRN Reason: Keep Vein Open Labs: Laboratory Tests 12/19/20 12/19/20 Range/Units 00:35 00:35 WBC 6.51 (4.0-11.0) K/uL RBC 5.09 (4.50-5.90) M/uL Hgb 15.2 (13.0-17.0) g/dL Hct 46.1 (38.0-50.0) % MCV 90.6 (80.0-98.0) fL MCH 29.9 (27.0-32.0) pg MCHC 33.0 (31.0-37.0) g/dL RDW Std Deviation 48.9 (28.0-62.0) fl RDW Coeff of Lety 15 (11.0-15.0) % Plt Count 157 (150-400) K/uL MPV 10.90 (7.40-12.00) fL Neut % (Auto) 65.6 (48.0-80.0) % Lymph % (Auto) 19.4 (16.0-40.0) % Pine % (Auto) 11.5 (0.0-15.0) % Eos % (Auto) 3.2 (0.0-7.0) % Baso % (Auto) 0.3 (0.0-1.5) % Neut # (Auto) 4.3 (1.4-5.7) K/uL Lymph # (Auto) 1.3 (0.6-2.4) K/uL Pine # (Auto) 0.8 (0.0-0.8) K/uL Eos # (Auto) 0.2 (0.0-0.7) K/uL Baso # (Auto) 0.0 (0.0-0.1) K/uL Sodium 139 (136-148) mmol/L Potassium 5.2 H (3.5-5.1) mmol/L Chloride 103 (98-107) mmol/L Carbon Dioxide 26.5 (21.0-32.0) mmol/L BUN 28 H (7.0-18.0) mg/dL Creatinine 2.0 H (0.8-1.3) mg/dL Est Cr Clr Drug Dosing 39.48 mL/min Estimated GFR (MDRD) 35.0 ml/min Glucose 155 H (74-106) mg/dL Calcium 8.9 (8.5-10.1) mg/dL Total Bilirubin 0.3 (0.2-1.0) mg/dL AST 26 (15-37) IU/L ALT 45 (14-63) IU/L Alkaline Phosphatase 138 H (46-116) U/L Total Protein 7.7 (6.4-8.2) g/dL Albumin 3.7 (3.4-5.0) g/dL Globulin 4.0 (2.6-4.0) g/dL Albumin/Globulin Ratio 0.9 (0.9-1.6) Lipase 127 (73-393) U/L Meds: Medications Generic Name Dose Route Start Last Admin Trade Name Freq PRN Reason Stop Dose Admin Lactated Ringer's 1,000 mls @ 999 mls/hr 12/19/20 01:15 12/19/20 01:33 Ringers, Lactated IV 999 mls/hr ASDIRECTED MIC Administration Sodium Chloride 10 ml 12/19/20 00:37 Sodium Chloride 0.9% 10 Ml Syringe FLUSH ASDIRECTED PRN Keep Vein Open Sodium Chloride 2.5 ml 12/19/20 00:37 Sodium Chloride 0.9% 2.5 Ml Syringe FLUSH ASDIRECTED PRN Keep Vein Open Discontinued Medications Generic Name Dose Route Start Last Admin Trade Name Freq PRN Reason Stop Dose Admin Al Hydroxide/Mg Hydroxide 15 0 ml 12/19/20 00:37 12/19/20 00:53 ml/ Lidocaine HCl 5 ml PO 12/19/20 00:38 20 each ONETIME ONE Administration Metoclopramide HCl 5 mg 12/19/20 00:37 12/19/20 00:51 Metoclopramide 10 Mg/2 Ml Sdv IVPUSH 12/19/20 00:38 5 mg ONETIME ONE Administration Departure - Departure Time of Disposition: 02:33 Disposition: Home, Self-Care 01 Condition: Good Clinical Impression: Dyspepsia - Discharge Information *PRESCRIPTION DRUG MONITORING PROGRAM REVIEWED*: Not Applicable *COPY OF PRESCRIPTION DRUG MONITORING REPORT IN PATIENT MANPREET: Not Applicable Instructions: Indigestion Referrals: PCP,None [Primary Care Provider] - Maria Godinez [Ordering Only Provider] - Forms: ED Department Discharge Additional Instructions: Your labs today showed mild abnormality in your kidney function. For this reason is very important that you follow-up with your primary care provider so that they can repeat your blood work and ensure that your kidney function returns to normal. If you do not have a primary care doctor you can follow-up with a [facility]. The following information is given to patients seen in the emergency department who are being discharged to home. This information is to outline your options for follow-up care. We provide all patients seen in our emergency department with a follow-up referral. The need for follow-up, as well as the timing and circumstances, are variable depending upon the specifics of your emergency department visit. If you don't have a primary care physician on staff, we will provide you with a referral. We always advise you to contact your personal physician following an emergency department visit to inform them of the circumstance of the visit and for follow-up with them and/or the need for any referrals to a consulting specialist. The emergency department will also refer you to a specialist when appropriate. This referral assures that you have the opportunity for follow-up care with a specialist. All of these measure are taken in an effort to provide you with optimal care, which includes your follow-up. Under all circumstances we always encourage you to contact your private physician who remains a resource for coordinating your care. When calling for follow-up care, please make the office aware that this follow-up is from your recent emergency room visit. If for any reason you are refused follow-up, please contact the [facility] Emergency Department at and asked to speak to the emergency department charge nurse. Sepsis Event Note (ED) - Focused Exam Vital Signs: Vital Signs Temp Pulse Resp BP Pulse Ox 12/19/20 02:25 78 18 130/72 96 12/19/20 00:25 97.4 F 94 18 117/78 100 - My Orders Last 24 Hours: My Active Orders 12/19/20 00:37 Sodium Chloride 0.9% [Saline Flush] 10 ml FLUSH ASDIRECTED PRN Sodium Chloride 0.9% [Saline Flush] 2.5 ml FLUSH ASDIRECTED PRN Saline Lock Insert [OM.PC] Stat 12/19/20 01:15 Lactated Ringers [Ringers, Lactated] 1,000 ml IV ASDIRECTED - Assessment/Plan Last 24 Hours: My Active Orders 12/19/20 00:37 Sodium Chloride 0.9% [Saline Flush] 10 ml FLUSH ASDIRECTED PRN Sodium Chloride 0.9% [Saline Flush] 2.5 ml FLUSH ASDIRECTED PRN Saline Lock Insert [OM.PC] Stat 12/19/20 01:15 Lactated Ringers [Ringers, Lactated] 1,000 ml IV ASDIRECTED Assessment:: 55-year-old male presented with signs and symptoms that seem most consistent with gastroparesis. We will trial GI cocktail and Reglan. Regarding his headache was gradual in onset was not thunderclap I do not have a concern for subarachnoid hemorrhage. Headache he says is been going on just since today and given this time course I do not have a clinical concern for intracranial mass. Patient has no fever he has no altered mental status he has no neck pain or stiffness I have no concern for meningitis or encephalitis. Labs are pending as well to assess for any metabolic derangement including DKA. Final disposition pending symptoms and response to therapy. 0233: Labs with very minimally elevated potassium. Very minimal ORQUIDEA he was given IV fluids for this. His symptoms have improved he feels well at this time except tired. Vital signs are stable. Patient felt stable for discharge with follow-up with primary care doctor.
[2020-12-19 00:55] LABS: CARBON DIOXIDE,CO2 26.5 mmol/L (21.0-32.0); POTASSIUM,K 5.2 mmol/L (3.5-5.1)
[2020-12-19] MEDS ORDERED: Lactated Ringers 1,000 ML IV SCH (01:15)
[2020-12-19 02:30] VITALS: BP 130/72; PULSE 78
== END 2020-12-19 00:50 | disposition home or self-care (01) ==
LOC: MW.ED 00:23
DX: R10.13 Epigastric pain (principal); E78.00 Pure hypercholesterolemia, unspecified; J44.9 Chronic obstructive pulmonary disease, unspecified; I10 Essential (primary) hypertension; E11.9 Type 2 diabetes mellitus without complications; Z79.84 Long term (current) use of oral hypoglycemic drugs; Z79.899 Other long term (current) drug therapy
CPT/HCPCS: 36415; 80053; 83690; 85025; 96374; 99284; A9270; J2765; J7120

== ENCOUNTER 2020-12-31 03:14 | Emergency (ER) | payer MEDICARE, MEDICAID ==
[2020-12-31] MEDS ORDERED: diphenhydrAMINE 50 MG/ML SDV IVPUSH ONE (03:35)
[2020-12-31] MEDS ORDERED: Lactated Ringers 1,000 ML IV ONE (03:35)
[2020-12-31] MEDS ORDERED: Metoclopramide 10 MG/2 ML SDV IVPUSH ONE (03:35)
--- NOTE | 2020-12-31 03:40 | EDM.PDOC ---
ED HPI GENERAL MEDICAL PROBLEM - General Chief Complaint: Headache Stated Complaint: PERSISTENT HEADACHE Time Seen by Provider: 12/31/20 03:15 Source of Information: Reports: Patient History Limitations: Reports: No Limitations - History of Present Illness INITIAL COMMENTS - FREE TEXT/NARRATIVE: 55-year-old male presents with headache. Headache is localized to the frontal region described as sharp throbbing sensation that was noted when he was awake at 1 AM tonight. He denies fever, chills, nausea, vomiting, neck pain or neck stiffness, focal numbness or weakness. He did not take any medication for his headache and he came here. He states this feels slightly worse than his typical daily headache. ROS: A 10-point review of systems, other than pertinent positives and negatives as stated per HPI, is otherwise negative Past medical history: No additional pertinent history Past Surgical history: No additional pertinent history Social history: No additional pertinent history Family history: No additional pertinent history PHYSICAL EXAM General: AOx4, GCS = 15, No distress HEENT: dry mucous membrane Neck: supple, no meningismus, no Kernig or Brudzinski Cardiac: S1S2 RRR Respiratory: CTAB, no crackles or rales, no wheezing Abdomen: Soft, nontender, no rebound or guarding, nondistended, no pulsatile mass. Back: nontender Musculoskeletal: NVI distally, no deformity Neuro: No focal deficits, CN 2 - 12 WNL. head Pain Score (Numeric/FACES): 9 - Related Data Allergies Allergy/AdvReac Type Severity Reaction Status Date / Time No Known Allergies Allergy Verified 12/31/20 03:27 Home Meds: Home Meds Divalproex Sodium [Depakote] 1,000 mg PO DAILY 05/11/15 [History] Insulin Glarg,Human.Rec.Analog [LantUS] 80 unit SUBCUT DAILY 05/18/15 [History] Insulin Lispro [Humalog] 40 unit SQ ASDIRECTED PRN 05/18/15 [History] Lisinopril 1 tab PO DAILY 03/02/16 [History] metFORMIN HCl [Metformin HCl] 750 mg PO BID 03/02/16 [History] Pregabalin [Lyrica] 100 mg PO DAILY 09/24/18 [History] Linagliptin [Tradjenta] 5 mg PO DAILY 01/01/19 [History] [place]-3/DHA/Epa/Fish Oil [Fish Oil 1,000 mg Softgel] 1 each PO DAILY 01/01/19 [History] Simvastatin [Zocor] 40 mg PO DAILY 01/01/19 [History] Albuterol Sulfate 5 mg IH Q4HR #30 solution 12/13/19 [Rx] predniSONE [Prednisone] 40 mg PO DAILY 5 Days #15 tablet 12/13/19 [Rx] Pantoprazole Sodium [Protonix] 40 mg PO DAILY #30 tablet. 03/03/20 [Rx] Past Medical History - Past Health History Medical/Surgical History: Denies Medical/Surgical History HEENT History: Reports: Impaired Vision Cardiovascular History: Reports: High Cholesterol, Hypertension Respiratory History: Reports: COPD Gastrointestinal History: Reports: None Genitourinary History: Reports: None Musculoskeletal History: Reports: Arthritis Neurological History: Reports: Seizure Psychiatric History: Reports: Anxiety Endocrine/Metabolic History: Reports: Diabetes, Type II Insulin Pump Model and Isolation Washer: No Hematologic History: Reports: None Immunologic History: Reports: None Oncologic (Cancer) History: Reports: None Dermatologic History: Reports: None - Infectious Disease History Infectious Disease History: Reports: None - Past Surgical History Head Surgeries/Procedures: Reports: None HEENT Surgical History: Reports: Naso-Sinus Surgery, Retinal, Visual Cardiovascular Surgical History: Reports: None Respiratory Surgical History: Reports: None GI Surgical History: Reports: None Male Surgical History: Reports: None Endocrine Surgical History: Reports: None Neurological Surgical History: Reports: None Musculoskeletal Surgical History: Reports: None Other Musculoskeletal Surgeries/Procedures:: Knee ligaments Dermatological Surgical History: Reports: None Social & Family History - Family History Family Medical History: No Pertinent Family History - Tobacco Use Tobacco Use Status *Q: Never Tobacco User Second Hand Smoke Exposure: Yes - Caffeine Use Caffeine Use: Reports: None - Recreational Drug Use Recreational Drug Use: No ED ROS GENERAL - Review of Systems Review Of Systems: See Below (see dictation) ED EXAM, GENERAL - Physical Exam Exam: See Below (see dictation) Course - Vital Signs Last Recorded V/S: Last Vital Signs Temp 96.9 F 12/31/20 03:22 Pulse 71 12/31/20 04:51 Resp 16 12/31/20 04:51 BP 147/87 H 12/31/20 04:51 Pulse Ox 95 12/31/20 04:51 - Orders/Labs/Meds Meds: Medications Discontinued Medications Generic Name Dose Route Start Last Admin Trade Name Salvatoreq PRN Reason Stop Dose Admin Diphenhydramine HCl 50 mg 12/31/20 03:35 12/31/20 03:47 Diphenhydramine 50 Mg/Ml Sdv IVPUSH 12/31/20 03:36 50 mg ONETIME ONE Administration Lactated Ringer's 1,000 mls @ 999 mls/hr 12/31/20 03:35 12/31/20 03:47 Ringers, Lactated IV 12/31/20 04:35 999 mls/hr .BOLUS ONE Administration Metoclopramide HCl 10 mg 12/31/20 03:35 12/31/20 03:47 Metoclopramide 10 Mg/2 Ml Sdv IVPUSH 12/31/20 03:36 10 mg ONETIME ONE Administration Ondansetron HCl 4 mg 12/31/20 04:05 12/31/20 04:14 Ondansetron 4 Mg/2 Ml Sdv IVPUSH 12/31/20 04:06 4 mg ONETIME ONE Administration - Re-Assessments/Exams Free Text/Narrative Re-Assessment/Exam: 12/31/20 03:38 After IV fluids, Reglan, Benadryl in the ER, the patient improved and is currently stable for discharge. I performed a repeat exam and did not appreciate new abnormal findings. Patient exhibits normal vital signs and has a normal gait on road test. I advised the patient to return to the ER for reevaluation if symptoms worsened, including fever, worsening pain, or any other worrisome symptoms. I instructed the patient to follow up with their PCP within 2-3 days. MEDICAL DECISION MAKING: I reviewed the patients past medical records, lab and radiographic findings. I discussed the case with the patient. My differential diagnosis included: Tension headache, migraine headache. His headache is not described as the worst headache of her life, it is not sudden in onset, and not thunderclap in nature. There is no fever, neck pain or stiffness, or focal numbness or weakness. The headache is similar to his previous migraine headache. Headache was improved with reglan, Benadryl. I do not feel the need to pursue imaging studies for their headache. Departure - Departure Time of Disposition: 04:39 Disposition: Home, Self-Care 01 Condition: Good Clinical Impression: Headache - Discharge Information *PRESCRIPTION DRUG MONITORING PROGRAM REVIEWED*: Not Applicable *COPY OF PRESCRIPTION DRUG MONITORING REPORT IN PATIENT MANPREET: Not Applicable Instructions: General Headache Without Cause Referrals: Ioana Godinez MD [Primary Care Provider] - 3 Days Forms: ED Department Discharge Additional Instructions: The need for follow-up, as well as the timing and circumstances, are variable depending upon the specifics of your emergency department visit. If you don't have a primary care physician on staff, we will provide you with a referral. We always advise you to contact your personal physician following an emergency department visit to inform them of the circumstance of the visit and for follow-up with them and/or the need for any referrals to a consulting specialist. The emergency department will also refer you to a specialist when appropriate. This referral assures that you have the opportunity for follow-up care with a specialist. All of these measure are taken in an effort to provide you with optimal care, which includes your follow-up. Under all circumstances we always encourage you to contact your private physician who remains a resource for coordinating your care. When calling for follow-up care, please make the office aware that this follow-up is from your recent emergency room visit. If for any reason you are refused follow-up, please contact the [facility] Emergency Department at and asked to speak to the emergency department charge nurse. If you do not have a primary care doctor, please follow up with the clinics below within 3-5 days. Beatriz Chavez [facility] [address] [place] [id number] [facility] [address] [place] [address] Sepsis Event Note (ED) - Evaluation Sepsis Screening Result: No Definite Risk - Focused Exam Vital Signs: Vital Signs Temp Pulse Resp BP Pulse Ox 12/31/20 04:51 71 16 147/87 H 95 12/31/20 04:15 65 14 141/83 H 96 12/31/20 03:22 96.9 F 72 16 147/93 H 97
[2020-12-31] MEDS ORDERED: Ondansetron 4 MG/2 ML SDV IVPUSH ONE (04:05)
[2020-12-31 04:51] VITALS: BP 147/87; PULSE 71
== END 2020-12-31 04:53 | disposition home or self-care (01) ==
LOC: MW.ED 03:14
DX: R51.9 Headache, unspecified (principal); I10 Essential (primary) hypertension; E78.00 Pure hypercholesterolemia, unspecified; J44.9 Chronic obstructive pulmonary disease, unspecified; E11.9 Type 2 diabetes mellitus without complications; Z79.4 Long term (current) use of insulin; Z79.899 Other long term (current) drug therapy; Z77.22 Contact with and (suspected) exposure to environmental tobacco smoke (acute) (chronic)
CPT/HCPCS: 96374; 96375; 99283; J1200; J2405; J2765; J7120

== ENCOUNTER 2021-01-19 08:24 | Emergency (ER) | payer MEDICARE, MEDICAID ==
--- NOTE | 2021-01-19 08:40 | EDM.PDOC ---
ED HPI GENERAL MEDICAL PROBLEM - General Chief Complaint: Headache Stated Complaint: headache stomache Time Seen by Provider: 01/19/21 08:27 Source of Information: Reports: Patient History Limitations: Reports: No Limitations - History of Present Illness INITIAL COMMENTS - FREE TEXT/NARRATIVE: 65-year-old male past medical history diabetes presents for headache and nausea. Patient notes that for the last couple of months he has been getting persistent headaches associated with nausea but no vomiting. He does note a mild abdominal pain associated with it. Pain this morning started shortly after eating his cereal. He denies any one-sided weakness, confusion, slurred speech, changes in vision. He notes that this headache is similar to headaches that he had in the past. He is uncertain if he has had any CT or MRI imaging of the head but does not believe that he has. head Pain Score (Numeric/FACES): 6 - Related Data Allergies Allergy/AdvReac Type Severity Reaction Status Date / Time No Known Allergies Allergy Verified 01/19/21 08:37 Home Meds: Home Meds Divalproex Sodium [Depakote] 1,000 mg PO DAILY 05/11/15 [History] Insulin Glarg,Human.Rec.Analog [LantUS] 80 unit SUBCUT DAILY 05/18/15 [History] Insulin Lispro [Humalog] 40 unit SQ ASDIRECTED PRN 05/18/15 [History] Lisinopril 1 tab PO DAILY 03/02/16 [History] metFORMIN HCl [Metformin HCl] 750 mg PO BID 03/02/16 [History] Pregabalin [Lyrica] 100 mg PO DAILY 09/24/18 [History] Linagliptin [Tradjenta] 5 mg PO DAILY 01/01/19 [History] [place]-3/DHA/Epa/Fish Oil [Fish Oil 1,000 mg Softgel] 1 each PO DAILY 01/01/19 [History] Simvastatin [Zocor] 40 mg PO DAILY 01/01/19 [History] Albuterol Sulfate 5 mg IH Q4HR #30 solution 12/13/19 [Rx] predniSONE [Prednisone] 40 mg PO DAILY 5 Days #15 tablet 12/13/19 [Rx] Pantoprazole Sodium [Protonix] 40 mg PO DAILY #30 tablet 03/03/20 [Rx] Acetaminophen/Butalbital/Caff [Fioricet 325-50-40 MG] 1 each PO Q6H PRN #20 tab 01/19/21 [Rx] Past Medical History - Past Health History Medical/Surgical History: Denies Medical/Surgical History HEENT History: Reports: Impaired Vision Cardiovascular History: Reports: High Cholesterol, Hypertension Respiratory History: Reports: COPD Gastrointestinal History: Reports: None Genitourinary History: Reports: None Musculoskeletal History: Reports: Arthritis Neurological History: Reports: Seizure Psychiatric History: Reports: Anxiety Endocrine/Metabolic History: Reports: Diabetes, Type II Insulin Pump Model and [employer]: No Hematologic History: Reports: None Immunologic History: Reports: None Oncologic (Cancer) History: Reports: None Dermatologic History: Reports: None - Infectious Disease History Infectious Disease History: Reports: None - Past Surgical History Head Surgeries/Procedures: Reports: None HEENT Surgical History: Reports: Naso-Sinus Surgery, Retinal, Visual Cardiovascular Surgical History: Reports: None Respiratory Surgical History: Reports: None GI Surgical History: Reports: None Male Surgical History: Reports: None Endocrine Surgical History: Reports: None Neurological Surgical History: Reports: None Musculoskeletal Surgical History: Reports: None Other Musculoskeletal Surgeries/Procedures:: Knee ligaments Dermatological Surgical History: Reports: None Social & Family History - Family History Family Medical History: No Pertinent Family History - Caffeine Use Caffeine Use: Reports: None ED ROS GENERAL - Review of Systems Review Of Systems: Comprehensive ROS is negative, except as noted in HPI. ED EXAM, GENERAL - Physical Exam Exam: See Below Exam Limited By: No Limitations General Appearance: Alert, WD/WN, No Apparent Distress Eye Exam: Bilateral Eye: EOMI, PERRL Ears: Hearing Grossly Normal Throat/Mouth: Normal Voice, No Airway Compromise Head: Atraumatic, Normocephalic Neck: Normal Inspection, Supple Respiratory/Chest: No Respiratory Distress, Lungs Clear, Normal Breath Sounds, No Accessory Muscle Use Cardiovascular: Normal Peripheral Pulses, Regular Rate, Rhythm GI/Abdominal: Soft, Non-Tender Extremities: Normal Inspection Neurological: Alert, Oriented, CN II-XII Intact, Normal Cognition, Normal Gait, No Motor/Sensory Deficits Psychiatric: Normal Affect, Normal Mood Skin Exam: Warm, Dry, Intact, Normal Color Course - Vital Signs Last Recorded V/S: Last Vital Signs Temp 95.0 F L 01/19/21 08:32 Pulse 93 01/19/21 08:32 Resp 18 01/19/21 08:32 BP 123/76 01/19/21 08:32 Pulse Ox 97 01/19/21 08:32 - Orders/Labs/Meds Orders: Active Orders 24 hr Category Date Time Status Saline Lock Insert [OM.PC] Stat Oth 01/19/21 08:49 Ordered Labs: Laboratory Tests 01/19/21 01/19/21 Range/Units 09:02 09:02 WBC 4.78 (4.0-11.0) K/uL RBC 5.11 (4.50-5.90) M/uL Hgb 15.3 (13.0-17.0) g/dL Hct 45.6 (38.0-50.0) % MCV 89.2 (80.0-98.0) fL MCH 29.9 (27.0-32.0) pg MCHC 33.6 (31.0-37.0) g/dL RDW Std Deviation 47.9 (28.0-62.0) fl RDW Coeff of Lety 15 (11.0-15.0) % Plt Count 160 (150-400) K/uL MPV 11.20 (7.40-12.00) fL Neut % (Auto) 68.4 (48.0-80.0) % Lymph % (Auto) 18.2 (16.0-40.0) % Dent % (Auto) 10.3 (0.0-15.0) % Eos % (Auto) 2.7 (0.0-7.0) % Baso % (Auto) 0.4 (0.0-1.5) % Neut # (Auto) 3.3 (1.4-5.7) K/uL Lymph # (Auto) 0.9 (0.6-2.4) K/uL Dent # (Auto) 0.5 (0.0-0.8) K/uL Eos # (Auto) 0.1 (0.0-0.7) K/uL Baso # (Auto) 0.0 (0.0-0.1) K/uL Nucleated RBC % 0.0 /100WBC Nucleated RBCs # 0 K/uL Sodium 140 (136-148) mmol/L Potassium 5.1 (3.5-5.1) mmol/L Chloride 104 (98-107) mmol/L Carbon Dioxide 27.3 (21.0-32.0) mmol/L BUN 23 H (7.0-18.0) mg/dL Creatinine 1.9 H (0.8-1.3) mg/dL Est Cr Clr Drug Dosing 45.89 mL/min Estimated GFR (MDRD) 37.1 ml/min Glucose 174 H (74-106) mg/dL Calcium 9.0 (8.5-10.1) mg/dL Magnesium 1.9 (1.8-2.4) mg/dL Total Bilirubin 0.3 (0.2-1.0) mg/dL AST 24 (15-37) IU/L ALT 33 (14-63) IU/L Alkaline Phosphatase 102 (46-116) U/L Total Protein 7.8 (6.4-8.2) g/dL Albumin 3.6 (3.4-5.0) g/dL Globulin 4.2 H (2.6-4.0) g/dL Albumin/Globulin Ratio 0.9 (0.9-1.6) Meds: Medications Discontinued Medications Generic Name Dose Route Start Last Admin Trade Name Freq PRN Reason Stop Dose Admin Acetaminophen/Butalbital/Caffeine 1 tab 01/19/21 08:50 01/19/21 09:13 Acetaminophen/Butalbital/Caffeine 325-50-40 Mg Tab PO 01/19/21 08:51 1 tab ONETIME ONE Administration Diphenhydramine HCl 25 mg 01/19/21 08:50 01/19/21 09:13 Diphenhydramine 50 Mg/Ml Sdv IVPUSH 01/19/21 08:51 25 mg ONETIME ONE Administration Sodium Chloride 1,000 mls @ 999 mls/hr 01/19/21 08:49 01/19/21 09:11 Normal Saline IV 01/19/21 09:49 999 mls/hr .Bolus ONE Administration Ketorolac Tromethamine 15 mg 01/19/21 08:50 01/19/21 09:13 Ketorolac 15 Mg/Ml Sdv IVPUSH 01/19/21 08:51 15 mg STAT STA Administration Metoclopramide HCl 10 mg 01/19/21 08:50 01/19/21 09:13 Metoclopramide 10 Mg/2 Ml Sdv IVPUSH 01/19/21 08:51 10 mg ONETIME ONE Administration - Re-Assessments/Exams Free Text/Narrative Re-Assessment/Exam: 01/19/21 08:53 I have a low suspicion for intracranial hemorrhage given the chronicity of patient's symptoms. However given patient has not had CT imaging of the head and is having worsening persistent headaches will get CT imaging to rule out less likely intracranial mass or other pathology. Will give headache cocktail. 01/19/21 10:08 Labs unremarkable; will f/u CT imaging and reassess 01/19/21 11:03 CT imaging is unremarkable. Will discharge patient with a short course of Fioricet and recommend neurology follow-up. Departure - Departure Time of Disposition: 11:04 Disposition: Home, Self-Care 01 Condition: Good Clinical Impression: Migraine - Discharge Information Prescriptions: Acetaminophen/Butalbital/Caff [Fioricet 325-50-40 MG] 1 each PO Q6H PRN #20 tab PRN Reason: Headache Instructions: Migraine Headache, [id number] Referrals: PCP,None [Primary Care Provider] - Forms: ED Department Discharge Additional Instructions: Your CT and labs are unremarkable. I prescribed a medication called Fioricet that can help with migraine symptoms. You need to follow-up with a neurologist. Information is provided below. [facility] [address], [address] [place] [address] The following information is given to patients seen in the emergency department who are being discharged to home. This information is to outline your options for follow-up care. We provide all patients seen in our emergency department with a follow-up referral. The need for follow-up, as well as the timing and circumstances, are variable depending upon the specifics of your emergency department visit. If you don't have a primary care physician on staff, we will provide you with a referral. We always advise you to contact your personal physician following an emergency department visit to inform them of the circumstance of the visit and for follow-up with them and/or the need for any referrals to a consulting specialist. The emergency department will also refer you to a specialist when appropriate. This referral assures that you have the opportunity for follow-up care with a specialist. All of these measure are taken in an effort to provide you with optimal care, which includes your follow-up. Under all circumstances we always encourage you to contact your private physician who remains a resource for coordinating your care. When calling for follow-up care, please make the office aware that this follow-up is from your recent emergency room visit. If for any reason you are refused follow-up, please contact the [facility] Emergency Department at and asked to speak to the emergency department charge nurse. Please follow up with your primary care physician. If you do not have a primary care physician, see below: [facility] [address] [place] [address] [phone] My [facility] [address] [place] [id number] [facility] [address] [place] [id number] Sepsis Event Note (ED) - Evaluation Sepsis Screening Result: No Definite Risk - Focused Exam Vital Signs: Vital Signs Temp Pulse Resp BP Pulse Ox 01/19/21 08:32 95.0 F L 93 18 123/76 97 - My Orders Last 24 Hours: My Active Orders 01/19/21 08:49 Saline Lock Insert [OM.PC] Stat - Assessment/Plan Last 24 Hours: My Active Orders 01/19/21 08:49 Saline Lock Insert [OM.PC] Stat
[2021-01-19] MEDS ORDERED: Sodium Chloride 0.9% 1,000 ML IV ONE (08:49)
[2021-01-19] MEDS ORDERED: diphenhydrAMINE 50 MG/ML SDV IVPUSH ONE (08:50)
[2021-01-19] MEDS ORDERED: Ketorolac 15 MG/ML SDV IVPUSH STA (08:50)
[2021-01-19] MEDS ORDERED: Metoclopramide 10 MG/2 ML SDV IVPUSH ONE (08:50)
[2021-01-19] MEDS ORDERED: Acetaminophen/Butalbital/Caffeine 325-50-40 MG Tab PO ONE (08:50)
[2021-01-19 09:30] LABS: CARBON DIOXIDE,CO2 27.3 mmol/L (21.0-32.0); POTASSIUM,K 5.1 mmol/L (3.5-5.1)
--- NOTE | 2021-01-19 10:43 | CT ---
Indication: Headache Technique: Noncontrast head CT Comparison: Head CT 09/12/2012 Findings: Axial noncontrast images through the brain parenchyma demonstrates no acute intracranial hemorrhage or mass. No midline shift. No abnormal extra-axial air fluid collections. Mucosal thickening of the left maxillary sinus. Prior FESS. Impression: No acute intracranial hemorrhage or mass. Left maxillary sinus disease. Please note that all CT scans at this facility use dose modulation, iterative reconstruction, and/or weight-based dosing when appropriate to reduce radiation dose to as low as reasonably achievable. Dictated by Ledy Pina MD @ 01/19/2021 10:42:15 AM (Electronically Signed)
[2021-01-19 11:50] VITALS: BP 122/78; PULSE 75
== END 2021-01-19 11:17 | disposition home or self-care (01) ==
LOC: MW.ED 08:24
DX: G43.909 Migraine, unspecified, not intractable, without status migrainosus (principal); I10 Essential (primary) hypertension; J44.9 Chronic obstructive pulmonary disease, unspecified; E11.9 Type 2 diabetes mellitus without complications; E78.00 Pure hypercholesterolemia, unspecified; Z79.4 Long term (current) use of insulin; Z79.899 Other long term (current) drug therapy
CPT/HCPCS: 36415; 70450; 80053; 83735; 85025; 96374; 96375; 99284; A9270; J1200; J1885; J2765; J7030

== ENCOUNTER 2021-05-04 05:16 | Emergency (ER) | payer MEDICARE, MEDICAID ==
[2021-05-04] MEDS ORDERED: Sodium Chloride 0.9% 1,000 ML IV ONE (05:46)
[2021-05-04] MEDS ORDERED: Levofloxacin/Dextrose 5%-Water 500 MG in Premix Bag 1 BAG IV ONE (06:19)
[2021-05-04 06:30] LABS: CARBON DIOXIDE,CO2 24.6 mmol/L (21.0-32.0); POTASSIUM,K 4.8 mmol/L (3.5-5.1)
[2021-05-04 08:16] VITALS: PULSE 114
[2021-05-04 08:53] VITALS: BP 128/86
== END 2021-05-04 08:51 | disposition home or self-care (01) ==
LOC: MW.ED 05:16
DX: N30.91 Cystitis, unspecified with hematuria (principal); E78.00 Pure hypercholesterolemia, unspecified; I10 Essential (primary) hypertension; E11.9 Type 2 diabetes mellitus without complications; J44.9 Chronic obstructive pulmonary disease, unspecified; Z79.4 Long term (current) use of insulin; Z79.899 Other long term (current) drug therapy
CPT/HCPCS: 36415; 74176; 80053; 81001; 83605; 83690; 85025; 87040; 96365; 96366; 99284; J1956; J7030

== ENCOUNTER 2021-06-21 15:22 | Emergency (ER) | payer MEDICARE, MEDICAID ==
[2021-06-21] MEDS ORDERED: Tetracaine HCl/PF 0.5% 4 ML Bottle EYEBOTH ONE (15:38)
[2021-06-21 15:57] VITALS: BP 121/75; PULSE 85
== END 2021-06-21 15:49 | disposition home or self-care (01) ==
LOC: MW.ED 15:22
DX: H11.32 Conjunctival hemorrhage, left eye (principal); I10 Essential (primary) hypertension; J44.9 Chronic obstructive pulmonary disease, unspecified; E11.9 Type 2 diabetes mellitus without complications; F41.9 Anxiety disorder, unspecified; Z79.899 Other long term (current) drug therapy; Z79.4 Long term (current) use of insulin; Z79.84 Long term (current) use of oral hypoglycemic drugs
CPT/HCPCS: 99283

== ENCOUNTER 2021-07-07 16:03 | Emergency (ER) | payer MEDICARE, MEDICAID ==
[2021-07-07 21:43] LABS: CARBON DIOXIDE,CO2 24.9 mmol/L (21.0-32.0); POTASSIUM,K 4.5 mmol/L (3.5-5.1)
[2021-07-07] MEDS ORDERED: Cephalexin 500 MG Cap PO STA (22:42)
[2021-07-07 23:37] VITALS: BP 115/75; PULSE 97
== END 2021-07-07 23:40 | disposition home or self-care (01) ==
LOC: MW.ED 16:03
DX: D72.829 Elevated white blood cell count, unspecified (principal); E11.9 Type 2 diabetes mellitus without complications; I10 Essential (primary) hypertension; J44.9 Chronic obstructive pulmonary disease, unspecified; E78.00 Pure hypercholesterolemia, unspecified; Z79.4 Long term (current) use of insulin; Z79.899 Other long term (current) drug therapy
CPT/HCPCS: 36415; 80053; 81001; 85025; 87086; 99284; A9270; 99282

== ENCOUNTER 2021-07-12 13:19 | Emergency (ER) | payer MEDICARE, MEDICAID ==
[2021-07-12 16:01] VITALS: BP 128/74; PULSE 92
== END 2021-07-12 16:01 | disposition home or self-care (01) ==
LOC: MW.ED 13:19
DX: R32 Unspecified urinary incontinence (principal); I10 Essential (primary) hypertension; E11.9 Type 2 diabetes mellitus without complications; J44.9 Chronic obstructive pulmonary disease, unspecified; E78.00 Pure hypercholesterolemia, unspecified; Z79.4 Long term (current) use of insulin; Z79.84 Long term (current) use of oral hypoglycemic drugs; Z79.899 Other long term (current) drug therapy
CPT/HCPCS: 51798; 81001; 82947; 99283-25

== ENCOUNTER 2021-07-18 13:39 | Emergency (ER) | payer MEDICARE, MEDICAID ==
[2021-07-18 17:10] VITALS: BP 128/74; PULSE 87
== END 2021-07-18 17:09 | disposition home or self-care (01) ==
LOC: MW.ED 13:39
DX: N48.83 Acquired buried penis (principal); R32 Unspecified urinary incontinence; R30.0 Dysuria; J44.9 Chronic obstructive pulmonary disease, unspecified; E78.00 Pure hypercholesterolemia, unspecified; I10 Essential (primary) hypertension; E11.9 Type 2 diabetes mellitus without complications; Z79.4 Long term (current) use of insulin; Z79.84 Long term (current) use of oral hypoglycemic drugs; Z79.899 Other long term (current) drug therapy; Z86.16 Personal history of COVID-19
CPT/HCPCS: 81001; 99283

== ENCOUNTER 2021-08-21 21:41 | Emergency (ER) | payer MEDICARE, MEDICAID ==
[2021-08-21] MEDS ORDERED: Sodium Chloride 0.9% 1,000 ML IV ONE (21:57)
[2021-08-21 23:04] LABS: CARBON DIOXIDE,CO2 23.4 mmol/L (21.0-32.0); POTASSIUM,K 4.7 mmol/L (3.5-5.1)
[2021-08-21 23:20] VITALS: BP 115/74; PULSE 85
== END 2021-08-21 23:52 | disposition home or self-care (01) ==
LOC: MW.ED 21:41
DX: K92.2 Gastrointestinal hemorrhage, unspecified (principal); E78.00 Pure hypercholesterolemia, unspecified; I10 Essential (primary) hypertension; J44.9 Chronic obstructive pulmonary disease, unspecified; E11.9 Type 2 diabetes mellitus without complications; Z79.84 Long term (current) use of oral hypoglycemic drugs; Z79.899 Other long term (current) drug therapy; Z86.16 Personal history of COVID-19
CPT/HCPCS: 36415; 80053; 83735; 85025; 93005; 99285; J7030

== ENCOUNTER 2021-10-12 08:48 | Emergency (ER) | payer MEDICARE, MEDICAID ==
[2021-10-12] MEDS ORDERED: Ondansetron 4 MG Tab.DIS PO ONE (09:04)
[2021-10-12 10:06] LABS: CORONAVIRUS COVID-19 NAA NEGATIVE (NEGATIVE); INFLUENZA A NAA NEGATIVE (NEGATIVE); INFLUENZA B NAA NEGATIVE (NEGATIVE)
[2021-10-12 10:58] VITALS: BP 120/73; PULSE 81
== END 2021-10-12 10:58 | disposition home or self-care (01) ==
LOC: MW.ED 08:48
DX: R10.9 Unspecified abdominal pain (principal); R51.9 Headache, unspecified; R11.2 Nausea with vomiting, unspecified; E78.00 Pure hypercholesterolemia, unspecified; E11.9 Type 2 diabetes mellitus without complications; I10 Essential (primary) hypertension; J44.9 Chronic obstructive pulmonary disease, unspecified; Z79.4 Long term (current) use of insulin; Z79.899 Other long term (current) drug therapy; Z86.16 Personal history of COVID-19; Z20.822 Contact with and (suspected) exposure to COVID-19
CPT/HCPCS: 0240U; 99284; A9270; 99283

== ENCOUNTER 2024-01-15 05:27 | Emergency (ER) | payer MEDICARE, MEDICAID ==
[2024-01-15] MEDS: Sodium Chloride 0.9% 1,000 ML IV STA (05:50)
[2024-01-15] MEDS: Sodium Chloride 0.9% 10 ML Syringe FLUSH PRN (05:50)
[2024-01-15] MEDS: Ondansetron 4 MG/2 ML SDV IVPUSH ONE (05:50)
[2024-01-15] MEDS: Sodium Chloride 0.9% 2.5 ML Syringe FLUSH PRN (05:50)
[2024-01-15 05:52] LABS: BASOPHILS ABSOLUTE AUTO 0.03 K/uL (0.00-0.20); BASOPHILS PERCENT AUTO 0.3 % (0.0-1.0); HEMATOCRIT 52.8 % (42.0-52.0); HEMOGLOBIN 17.6 g/dL (14.0-18.0); IMMATURE GRAN ABSOLUTE AUTO 0.03 K/uL (0.00-0.05); IMMATURE GRAN PERCENT AUTO 0.3 % (0.0-0.4); LYMPHOCYTES ABSOLUTE AUTO 0.97 K/uL (1.00-4.80); LYMPHOCYTES PERCENT AUTO 9.5 % (24.0-44.0); MEAN CORPUSCULAR HEMOGLOBIN 29.9 pg (28.0-32.0); MEAN CORPUSCULAR HGB CONC 33.3 g/dL (32.0-36.0); MEAN CORPUSCULAR VOLUME 89.6 fL (83.0-99.0); MEAN PLATELET VOLUME 10.6 fL (9.4-12.4); MONOCYTES ABSOLUTE AUTO 1.42 K/uL (0.00-0.80); MONOCYTES PERCENT AUTO 13.9 % (0.0-8.0); NEUTROPHILS ABSOLUTE AUTO 7.59 K/uL (1.80-7.70); PLATELET COUNT,PLT 154 K/uL (150-400); RED BLOOD CELL COUNT 5.89 M/uL (4.52-5.90); WHITE BLOOD CELL COUNT,WBC 10.24 K/uL (3.9-11.3)
[2024-01-15 06:15] LABS: A/G RATIO 0.9 (0.9-1.6); ALBUMIN 3.6 g/dL (3.4-5.0); BILIRUBIN TOTAL 0.5 mg/dL (0.2-1.0); CALCIUM 9.3 mg/dL (8.5-10.1); CARBON DIOXIDE,CO2 26.9 mmol/L (21.0-32.0); EST CRCL DRUG DOSING (CG) 43.4 mL/min; POTASSIUM,K 4.7 mmol/L (3.5-5.1); PROTEIN TOTAL,TP 7.4 g/dL (6.4-8.2)
[2024-01-15 06:59] LABS: CORONAVIRUS COVID-19 NAA NEGATIVE (NEGATIVE); INFLUENZA A NAA NEGATIVE (NEGATIVE); INFLUENZA B NAA NEGATIVE (NEGATIVE); RESPIRATORY SYNCYTIAL VIR NAA NEGATIVE (NEGATIVE)
[2024-01-15 08:24] VITALS: BP 99/69; PULSE 97
== END 2024-01-15 08:26 | disposition home or self-care (01) ==
LOC: MW.ED 05:27
DX: R19.7 Diarrhea, unspecified (principal); R11.2 Nausea with vomiting, unspecified; I10 Essential (primary) hypertension; E78.00 Pure hypercholesterolemia, unspecified; J44.9 Chronic obstructive pulmonary disease, unspecified; E11.9 Type 2 diabetes mellitus without complications; Z79.4 Long term (current) use of insulin; Z79.899 Other long term (current) drug therapy; Z79.84 Long term (current) use of oral hypoglycemic drugs
CPT/HCPCS: 0241U; 36415; 71045; 80053; 83690; 85025; 96361; 96374; 99284; J2405; J3490; J7030

== ENCOUNTER 2024-06-02 01:38 | Emergency (ER) | payer MEDICARE, MEDICAID ==
[2024-06-02] MEDS: Acetaminophen/oxyCODONE 325-5 MG Tab PO ONE (02:29)
[2024-06-02] MEDS: Ketorolac 30 MG/ML SDV IM ONE (02:30)
[2024-06-02] MEDS: Cyclobenzaprine 5 MG Tab PO STA (02:51)
[2024-06-02 07:32] VITALS: BP 110/79; PULSE 73
== END 2024-06-02 03:38 | disposition home or self-care (01) ==
LOC: MW.ED 01:38
DX: M54.50 Low back pain, unspecified (principal); E78.00 Pure hypercholesterolemia, unspecified; I10 Essential (primary) hypertension; J44.9 Chronic obstructive pulmonary disease, unspecified; E11.9 Type 2 diabetes mellitus without complications; Z79.899 Other long term (current) drug therapy; Z75.8 Other problems related to medical facilities and other health care; Z79.4 Long term (current) use of insulin
CPT/HCPCS: 72131; 96372; 99284; A9270; J1885; 99283

== ENCOUNTER 2024-07-01 23:02 | Emergency (ER) | payer MEDICARE, MEDICAID ==
[2024-07-01] MEDS: Magnesium Citrate Solution 296 ML Bottle PO ONE (23:22)
[2024-07-01 23:35] VITALS: BP 101/69; PULSE 88
== END 2024-07-01 23:31 | disposition home or self-care (01) ==
LOC: MW.ED 23:02
DX: K59.00 Constipation, unspecified (principal); I10 Essential (primary) hypertension; E78.00 Pure hypercholesterolemia, unspecified; J44.9 Chronic obstructive pulmonary disease, unspecified; E11.9 Type 2 diabetes mellitus without complications; Z79.84 Long term (current) use of oral hypoglycemic drugs; Z79.899 Other long term (current) drug therapy; Z79.4 Long term (current) use of insulin
CPT/HCPCS: 99283; A9270

== ENCOUNTER 2025-02-19 05:09 | Emergency (ER) | payer MEDICARE, OTHER, MEDICAID ==
[2025-02-19 05:36] LABS: BASOPHILS ABSOLUTE AUTO 0.05 K/uL (0.00-0.20); BASOPHILS PERCENT AUTO 0.8 % (0.0-1.0); EOSINOPHILS ABSOLUTE AUTO 0.19 K/uL (0.00-0.45); EOSINOPHILS PERCENT AUTO 3.1 % (0.0-6.0); IMMATURE GRAN ABSOLUTE AUTO 0.04 K/uL (0.00-0.05); IMMATURE GRAN PERCENT AUTO 0.6 % (0.0-0.4); LYMPHOCYTES ABSOLUTE AUTO 1.73 K/uL (1.00-4.80); LYMPHOCYTES PERCENT AUTO 27.9 % (24.0-44.0); MEAN PLATELET VOLUME 10.4 fL (9.4-12.4); MONOCYTES ABSOLUTE AUTO 0.54 K/uL (0.00-0.80); MONOCYTES PERCENT AUTO 8.7 % (0.0-8.0); NEUTROPHILS ABSOLUTE AUTO 3.65 K/uL (1.80-7.70); NEUTROPHILS PERCENT AUTO 58.9 % (41.0-71.0); NRBC ABSOLUTE 0.00 K/uL (0.00-0.02); NRBC PERCENT 0.0 /100WBC (0.0-0.2); PLATELET COUNT,PLT 161 K/uL (150-400); RED BLOOD CELL COUNT 5.12 M/uL (4.52-5.90); WHITE BLOOD CELL COUNT,WBC 6.20 K/uL (3.9-11.3)
[2025-02-19 06:12] LABS: GLUCOSE,URINE >=1000 mg/dL (NEGATIVE); OCCULT BLOOD,URINE TRACE-LYSED (NEGATIVE)
[2025-02-19 06:16] LABS: APPEARANCE,URINE CLOUDY
[2025-02-19 06:23] LABS: A/G RATIO 0.9 (0.9-1.6); ALANINE AMINOTRANSFERASE,ALT 34.0 IU/L (14-63); ASPARTATE AMNIOTRANSFERASE,AST 21.0 IU/L (15-37); BILIRUBIN TOTAL 0.5 mg/dL (0.2-1.0); BLOOD UREA NITROGEN,BUN 28.0 mg/dL (7.0-18.0); CARBON DIOXIDE,CO2 26.2 mmol/L (21.0-32.0); CHLORIDE,CL 105.0 mmol/L (98-107); CREATININE 2.0 mg/dL (0.8-1.3); EST CRCL DRUG DOSING (CG) 37.64 mL/min; GLUCOSE RANDOM 204.0 mg/dL (74-106); POTASSIUM,K 4.7 mmol/L (3.5-5.1); PRO B-TYPE NATRIUR PEPT,BNPPRO 13.0 pg/mL (0-125); PROTEIN TOTAL,TP 7.5 g/dL (6.4-8.2); SODIUM,NA 142.0 mmol/L (136-148)
[2025-02-19 06:24] VITALS: BP 101/66; PULSE 95
[2025-02-19 06:25] LABS: ESTIMATED GFR 38.0 mL/min (>60)
[2025-02-19 06:28] LABS: EPITHELIAL CELLS,URINE RARE (NONE-FEW)
[2025-02-19] MEDS: Iopamidol 755 MG/ML 500 ML Multipack Bottle IVPUSH ONE (06:50)
[2025-02-19] MEDS: cefTRIAXone 1 GM in Water For Injection, Sterile 10 ML IVPUSH ONE (08:05)
[2025-02-19] MEDS: Magnesium Citrate Solution 296 ML Bottle PO ONE (08:05)
== END 2025-02-19 09:14 | disposition home or self-care (01) ==
LOC: MW.ED 05:09
DX: K59.09 Other constipation (principal); N39.0 Urinary tract infection, site not specified; I10 Essential (primary) hypertension; E78.00 Pure hypercholesterolemia, unspecified; J44.9 Chronic obstructive pulmonary disease, unspecified; E11.9 Type 2 diabetes mellitus without complications; Z79.4 Long term (current) use of insulin; Z79.899 Other long term (current) drug therapy
CPT/HCPCS: 36415; 71045; 74177; 80053; 81001; 83690; 83880; 84484; 85025; 93005; 96374; 99284; A9270; J0696; J7030; Q9967

== ENCOUNTER 2025-03-26 06:59 | Emergency (ER) | payer MEDICARE, OTHER, MEDICAID ==
[2025-03-26] MEDS ORDERED: Sodium Chloride 0.9% 2.5 ML Syringe FLUSH PRN (07:17)
[2025-03-26] MEDS ORDERED: Sodium Chloride 0.9% 10 ML Syringe FLUSH PRN (07:17)
[2025-03-26 07:47] LABS: BASOPHILS ABSOLUTE AUTO 0.03 K/uL (0.00-0.20); BASOPHILS PERCENT AUTO 0.5 % (0.0-1.0); EOSINOPHILS ABSOLUTE AUTO 0.16 K/uL (0.00-0.45); EOSINOPHILS PERCENT AUTO 2.7 % (0.0-6.0); IMMATURE GRAN ABSOLUTE AUTO 0.04 K/uL (0.00-0.05); IMMATURE GRAN PERCENT AUTO 0.7 % (0.0-0.4); LYMPHOCYTES ABSOLUTE AUTO 1.66 K/uL (1.00-4.80); LYMPHOCYTES PERCENT AUTO 28.1 % (24.0-44.0); MEAN PLATELET VOLUME 10.8 fL (9.4-12.4); MONOCYTES ABSOLUTE AUTO 0.75 K/uL (0.00-0.80); MONOCYTES PERCENT AUTO 12.7 % (0.0-8.0); NEUTROPHILS ABSOLUTE AUTO 3.27 K/uL (1.80-7.70); NEUTROPHILS PERCENT AUTO 55.3 % (41.0-71.0); NRBC ABSOLUTE 0.00 K/uL (0.00-0.02); NRBC PERCENT 0.0 /100WBC (0.0-0.2); PLATELET COUNT,PLT 142 K/uL (150-400); RED BLOOD CELL COUNT 4.88 M/uL (4.52-5.90); WHITE BLOOD CELL COUNT,WBC 5.91 K/uL (3.9-11.3)
[2025-03-26 08:20] LABS: BLOOD UREA NITROGEN,BUN 24.0 mg/dL (7.0-18.0); CARBON DIOXIDE,CO2 30.3 mmol/L (21.0-32.0); CHLORIDE,CL 104.0 mmol/L (98-107); CREATININE 1.9 mg/dL (0.8-1.3); EST CRCL DRUG DOSING (CG) 39.62 mL/min; GLUCOSE RANDOM 140.0 mg/dL (74-106); POTASSIUM,K 5.1 mmol/L (3.5-5.1); PRO B-TYPE NATRIUR PEPT,BNPPRO 22.0 pg/mL (0-125); SODIUM,NA 141.0 mmol/L (136-148)
[2025-03-26 08:21] LABS: ESTIMATED GFR 40.0 mL/min (>60)
[2025-03-26] MEDS ORDERED: Levofloxacin/Dextrose 5%-Water 500 MG in Premix Bag 1 BAG IV ONE (08:37)
[2025-03-26] MEDS: Levofloxacin/Dextrose 5%-Water 750 MG in Premix Bag 1 BAG IV ONE (09:02)
[2025-03-26] MEDS: Magnesium Citrate Solution 296 ML Bottle PO ONE (10:16)
[2025-03-26 11:20] VITALS: BP 96/65; PULSE 99
== END 2025-03-26 11:21 | disposition home or self-care (01) ==
LOC: MW.ED 06:59
DX: K59.09 Other constipation (principal); J18.9 Pneumonia, unspecified organism; I10 Essential (primary) hypertension; E78.00 Pure hypercholesterolemia, unspecified; E11.9 Type 2 diabetes mellitus without complications; Z79.4 Long term (current) use of insulin; Z79.899 Other long term (current) drug therapy
CPT/HCPCS: 36415; 71045; 74018; 80048; 83880; 84484; 85025; 85379; 93005; 96365; 99285; A9270; J1956; 93010; 99284